=== PATIENT | female | born 1930 | race Caucasian/White ===

== ENCOUNTER 2017-05-27 13:38 | Inpatient (IN) ==
--- NOTE | 2017-05-27 14:56 | Emergency Department Note ---
SOB HPI - General Chief Complaint: Shortness of Breath/Dyspnea Stated Complaint: Shortness of breath Time Seen by Provider: 05/27/17 14:07 Source: patient, family Mode of arrival: wheelchair Limitations: no limitations - History of Present Illness 86-year-old female presents with cough 2 weeks. She was seen at [facility] yesterday and diagnosed with a left lower lobe pneumonia. She was treated with doxycycline and when she took it she had diarrhea. Her son states that this is what happens when she takes some antibiotics. She is also very weak. She has not eaten whole food for 2 years. She is on an all liquid diet and drinks boost mostly. She is able to keep down her pills and does not vomit. He states that they did not give her any fluids or do any blood work yesterday. She is not tachypneic. She does not have any chest pain. She has had one episode of diarrhea. She has not had a history of C. difficile. Family would like her to get some fluids and maybe IV antibiotics for a few days. - Related Data Home Medications Medication Instructions Recorded Confirmed Doxycycline Monohydrate [Mondoxyne 100 mg PO BID 05/27/17 05/27/17 Nl] Losartan Potassium [Cozaar] 100 mg PO DAILY 05/27/17 05/27/17 Metoprolol Tartrate [Lopressor] 50 mg PO BID 05/27/17 05/27/17 Montelukast Sodium [Singulair] 10 mg PO DAILY 05/27/17 05/27/17 Omeprazole [PriLOSEC] 20 mg PO DAILY 05/27/17 05/27/17 Oxybutynin Chloride [Ditropan] 5 mg PO BID 05/27/17 05/27/17 Simvastatin [Zocor] 40 mg PO DAILY 05/27/17 05/27/17 Allergies Allergy/AdvReac Type Severity Reaction Status Date / Time Penicillins Allergy Unknown Verified 05/27/17 13:43 anderson Allergy Verified 05/27/17 13:43 Review of Systems All systems ED: reviewed and negative except as stated. Past Medical History - Past Medical History Medical history: Reports: GERD, hyperlipidemia, hypertension. Denies: CHF Psychiatric history: Reports: no psych history [employer] history: Reports: non-contributory Surgical history ED: Reports: non-contributory Family history: Reports: non-contributory - Social History smoking status: Never smoker Physical Exam Limitations: no limitations General appearance: alert, in no apparent distress Head: atraumatic Eye: Present: normal appearance. Absent: conjunctival injection Neck: Present: normal inspection, full ROM Chest: Present: normal inspection, symmetric chest wall rise Respiratory: Present: other (mild decrease in the left lower lobe) Cardiovascular: Present: irregular rhythm, normal heart sounds Abdominal: Present: soft, normal bowel sounds. Absent: tenderness Extremities: Present: normal inspection, full ROM Neurological: Present: alert, oriented X3 Psychiatric: Present: normal affect, normal mood Skin: Present: warm, dry, intact Course Course Narrative: She will be admitted for IV antibiotics. Vital Signs Temperature 98.7 F 05/27/17 13:43 Pulse Rate 97 H 05/27/17 13:43 Respiratory Rate 18 05/27/17 13:43 Blood Pressure 121/80 05/27/17 13:43 Pulse Oximetry (%) 97 05/27/17 13:43 Temperature 98.7 F 05/27/17 17:32 Pulse Rate 86 05/27/17 17:32 Respiratory Rate 18 05/27/17 17:32 Blood Pressure 133/92 05/27/17 17:32 Pulse Oximetry (%) 94 05/27/17 17:32 Shortness of Breath/Dyspnea - Lab Data Lab results reviewed: Yes I reviewed the patient's lab results. Result diagrams: 05/27/17 15:10 05/27/17 15:10 Lab Results 05/27/17 05/27/17 05/27/17 Range/Units 15:10 15:10 15:10 WBC 4.8 (4.5-11.0) K/mcL RBC 2.58 L (4.00-5.20) M/mcL Hgb 8.7 L (12.0-15.0) g/dL Hct 25.0 L (36.0-48.0) % MCV 97.0 (80.0-100.0) fL MCH 33.8 (26.0-34.0) pg MCHC 34.8 (31.0-36.0) g/dL RDW 13.6 (11.5-14.5) % Plt Count 117 L (140-440) K/mcL MPV 8.4 (7.4-10.4) fL Total Counted 100 Seg Neutrophils % 85 H (38-78) % Band Neutrophils % Not Reportable Lymphocytes % 8 L (15-49) % Monocytes % (Manual) 7 (1-12) % Platelet Estimate Decreased (NORMAL) RBC Morphology Normal (NORMAL) VBG Lactic Acid 1.0 (0.5-2.2) mmol/L Sodium 131 L (133-145) mmol/L Potassium 4.6 (3.3-5.1) mmol/L Chloride 96 (96-108) mmol/L Carbon Dioxide 22 (22-30) mmol/L Anion Gap 13.0 (8-16) BUN 32 H (8-23) mg/dl Creatinine 1.5 H (0.6-1.1) mg/dl GFR Calculation 32 Glucose 98 (70-105) mg/dL Calcium 8.4 L (8.6-10.4) mg/dl Total Bilirubin 0.4 (0.0-1.0) mg/dL AST 20 (0-37) U/l ALT 8 (0-40) U/l Alkaline Phosphatase 48 (39-117) U/L Total Protein 6.4 (5.9-8.4) gm/dL Albumin 2.7 L (3.2-5.2) gm/dL Globulin 3.7 (2.2-3.7) gm/dL Albumin/Globulin Ratio 0.7 L (1.0-2.3) Disposition Pt seen by [facility]/PA only: Yes Clinical Impression: Community acquired pneumonia Disposition: Xfer As Inpt ([facility]) Condition: Fair
[2017-05-27] MEDS: 0.9 % SODIUM CHLORIDE 1,000 ML IV SCH ×3 (15:08→20:07)
[2017-05-27 15:33] LABS: Mean Corpuscular HGB Conc 34.8 g/dL (31.0-36.0); Mean Corpuscular Hemoglobin 33.8 pg (26.0-34.0); Platelet Count 117 K/mcL (140-440); RBC 2.58 M/mcL (4.00-5.20); Red Cell Distribution Width 13.6 % (11.5-14.5)
[2017-05-27 15:54] LABS: ALT/SGPT 8 U/l (0-40); Albumin 2.7 gm/dL (3.2-5.2); Albumin/Globulin Ratio 0.7 (1.0-2.3); Alkaline Phosphatase 48 U/L (39-117); Blood Urea Nitrogen 32 mg/dl (8-23)
[2017-05-27 16:08] LABS: Lymphocytes % 8 % (15-49); Monocytes % (Manual) 7 % (1-12); Platelet Estimate DECREASED (NORMAL); RBC Morphology NORMAL (NORMAL); Segmented Neutrophils % 85 % (38-78)
[2017-05-27] MEDS ORDERED: LEVOFLOXACIN 500 MG/100 ML BAG IV ONE (16:52)
--- NOTE | 2017-05-27 18:09 | Internal Med History&Physical ---
Medical - H&P: HPI Patient information: Note initiated : 05/27/17 at 6:09 pm Service Date, if different from initiated Date: [] Patient: Belle Celaya 86 y/o F admitted on 05/27/17 for Shortness of breath. Chief Complaint: Pneumonia, cannot tolerate PO antibiotics History of present illness: Patient is an 86-year-old female with a history of hypertension, chronic kidney disease, presbyesophagus on a liquid diet, gastroesophageal reflux who presents with diarrhea and progressive failure to thrive after starting antibiotics for pneumonia. For the last week or more, several members of the household have been sick with upper respiratory tract infection symptoms. For the last 7-10 days, her son is noted that the patient is had a worsening cough. It's productive of clear sputum. She is coming more fatigued, having less stamina and energy was declining functionally. She does have a history of presbyesophagus, only takes liquid diet (Boost). She denies any coughing or choking or aspiration symptoms prior to the onset of her cough. She presented to [facility] yesterday, diagnosed with left lower lobe pneumonia. She was started on doxycycline, immediately developed loose stools. She has had loose stools to several antibiotics in the past. She does not have a history of C. difficile. Because of the loose stools, just becoming more dehydrated, has been unable to tolerate oral medications for pneumonia. They return to the emergency department at [facility] today. Given her overall frail health, high risk of morbidity, pneumonia severity index of 114, Patient complains of persistent cough, still productive whitish sputum. She's had no fever. She always feels chilled, that is unchanged. She has no chest pain. No chest tightness. She does have some dyspnea on exertion occasionally. She occasionally gets lightheaded and nauseated, though that tends to occur when she takes her medications on an empty stomach without any liquid intake. She occasionally gets dependent lower extremity edema, has no history of congestive heart failure. No history of asthma or COPD, no history coronary disease, no history of cerebrovascular disease, no history of thyroid disease or diabetes. Denies any stroke symptoms. No abdominal pain. She is having loose stools for the last approximately one day after starting a dose of doxycycline. Otherwise no diarrhea earlier in the course of her illness. 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 Hypertension Hypercholesterolemia Gastroesophageal reflux disease Overactive bladder Surgical history: History of cataract surgery Medical - H&P: Meds Home Medications Medication Instructions Recorded Confirmed Type Doxycycline Monohydrate [Mondoxyne 100 mg PO BID 05/27/17 05/27/17 History Nl] Losartan Potassium [Cozaar] 100 mg PO DAILY 05/27/17 05/27/17 History Metoprolol Tartrate [Lopressor] 50 mg PO BID 05/27/17 05/27/17 History Montelukast Sodium [Singulair] 10 mg PO DAILY 05/27/17 05/27/17 History Omeprazole [PriLOSEC] 20 mg PO DAILY 05/27/17 05/27/17 History Oxybutynin Chloride [Ditropan] 5 mg PO BID 05/27/17 05/27/17 History Simvastatin [Zocor] 40 mg PO DAILY 05/27/17 05/27/17 History Allergies Allergy/AdvReac Type Severity Reaction Status Date / Time Penicillins Allergy Unknown Verified 05/27/17 13:43 anderson Allergy Verified 05/27/17 13:43 Medical - H&P: Exam - Constitutional Vitals: Temp Pulse Resp BP Pulse Ox 98.7 F 86 18 133/92 94 05/27/17 17:32 05/27/17 17:32 05/27/17 17:32 05/27/17 17:32 05/27/17 17:32 Exam: General: Frail, elderly, in no acute distress with occasional cough. HEENT: Normocephalic. Some temporal wasting present. Pupils are 4 mm and reactive bilaterally. Sclera are without icterus. No conjunctival injection noted. Oropharynx with moist mucous membranes, no erythema or exudate. Tongue is midline. Face is symmetric. Neck is supple, no thyromegaly appreciated. There is no meningismus. Chest: Coarse left lower lobe to mid lung rales, right lung lerma clear. Respirations are unlabored. Cardiovascular: Regular rate and rhythm, no murmur appreciated. There is no peripheral edema. Carotid pulses are 2+ without bruit. JVP is normal. Abdomen: Soft, nontender, no guarding, no rebound. Bowel sounds are normal and active. There is no hepatosplenomegaly. Lymphatic: No cervical or supraclavicular lymph nodes are noted. Skin: Warm, dry, decreased skin turgor. Musculoskeletal: Full range of motion in the upper and lower extremities. No joint erythema or swelling or tenderness. Strength is 5 minus/5 in the upper and lower extremities with a generalized weakness pattern. There is no cyanosis or clubbing of the digits. Neuro: The patient alert, oriented 3, answering in full and appropriate sentences. Cranial nerves II through XII are intact (visual lerma not tested) . Sensations intact to light touch. Psychiatric: Affect and orientation are normal. The patient displays good insight to her condition. Medical - H&P: Reslt - Labs CBC & Chem 7: 05/27/17 15:10 05/27/17 15:10 Labs: Short CBC 05/27/17 Range/Units 15:10 WBC 4.8 (4.5-11.0) K/mcL Hgb 8.7 L (12.0-15.0) g/dL Hct 25.0 L (36.0-48.0) % Plt Count 117 L (140-440) K/mcL BMP 05/27/17 15:10 Sodium 131 L Potassium 4.6 Chloride 96 Carbon Dioxide 22 BUN 32 H Creatinine 1.5 H Glucose 98 Calcium 8.4 L Liver Function 05/27/17 Range/Units 15:10 Total Bilirubin 0.4 (0.0-1.0) mg/dL AST 20 (0-37) U/l ALT 8 (0-40) U/l Alkaline Phosphatase 48 (39-117) U/L Albumin 2.7 L (3.2-5.2) gm/dL - Impressions Chest x-ray report from [facility]:, left lower lobe infiltrate. Medical - H&P: A/P (1) Left lower lobe pneumonia Current visit: Yes Status: Acute (2) CKD (chronic kidney disease), stage III Current visit: Yes Status: Chronic (3) Hypertension Current visit: Yes Status: Chronic (4) Hypercholesterolemia Current visit: Yes Status: Chronic (5) Anemia Current visit: Yes Status: Chronic - Narrative A/P Narrative: 86-year-old female with underlying comorbidities of chronic kidney disease, hypertension, hypercholesterolemia presents with pneumonia. Pneumonia. Pneumonia severity index 114, recommendation is inpatient therapy and monitoring. Was not able to tolerate outpatient antibiotics due to diarrhea. This is a covered with several oral antibiotics in the past. Has coarse rales. Is maintaining saturations adequately on room air. Is at risk for further morbidity mortality given age and comorbidities. Plan: 1. Inpatient admission, anticipate greater than 2 midnights 2. IV antibiotics with levofloxacin 3. Gentle hydration 4. PT and OT evaluations for mobility and regain her function Chronic kidney disease, stage III. Creatinine 1.5, similar to a past value in our system. Plan: Renal dose medications as needed. Anemia. Hemoglobin 8.7. Patient denies any hematemesis or blood in her stool. She has a history of prior anemia. Differential includes chronic GI blood loss, may also be related to her chronic kidney disease. Plan: Follow hemoglobin, check iron studies. Hypertension. On metoprolol and losartan. Plan: Continue home regimen. Hypercholesterolemia, on simvastatin Plan: Continue Prophylaxis: Subcutaneous Lovenox. CODE STATUS, discussed with the patient as well as her family at bedside: Full code
[2017-05-27] MEDS ORDERED: ACETAMINOPHEN 325 MG TABLET PO PRN (19:29)
[2017-05-27] MEDS ORDERED: ONDANSETRON 4 MG/2 ML VIAL IV PRN (19:29)
[2017-05-27] MEDS: METOPROLOL TARTRATE 50 MG TABLET PO SCH (21:04)
[2017-05-27] MEDS: 0.9 % SODIUM CHLORIDE 10 ML SYRINGE IV SCH (21:04)
[2017-05-27] MEDS: SIMVASTATIN 40 MG TABLET PO SCH (21:04)
[2017-05-27] MEDS: OXYBUTYNIN CHLORIDE 5 MG TABLET PO SCH (21:04)
[2017-05-27] MEDS: traZODone HCL 50 MG TABLET PO PRN (21:06)
[2017-05-28 05:08] LABS: Appearance,Urine HAZY; Bacteria,Urine FEW /hpf (0); Bilirubin,Urine NEG (NEG); Color,Urine YELLOW; Glucose,Urine (UA) NEGATIVE (NEG); Leukocyte Esterase,Urine 25 /uL (NEG); Mucus,Urine FEW /hpf (0); Protein,Urine NEG (NEG); Specific Gravity,Urine 1.014 (1.000-1.035); Urine Blood NEG mg/dL (<0.03); Urine RBC 1 /hpf (0-1); Urine Squamous Epithelial Cell 3 /hpf (0-4); Urine Transitional Epi Cells < 1 /hpf (0-2); Urine WBC 6 /hpf (0-4); Urobilinogen,Urine NEG (NEG)
[2017-05-28] MEDS: 0.9 % SODIUM CHLORIDE 10 ML SYRINGE IV SCH ×3 (05:47→22:23)
[2017-05-28] MEDS: OMEPRAZOLE 20 MG CAPSULE PO SCH (06:57)
[2017-05-28 07:04] LABS: Basophils # (Auto) 0 K/mcL (0.0-0.3); Basophils % (Auto) 0.4 % (0.0-2.0); Eosinophils # (Auto) 0.1 K/mcL (0.0-0.7); Eosinophils % (Auto) 1.7 % (0.0-7.0); Granulocytes % (Auto) 69.4 % (38.0-78.0); Lymphocytes # (Auto) 0.7 K/mcL (1.5-4.8); Mean Cell Volume 100.1 fL (80.0-100.0); Mean Corpuscular HGB Conc 34.6 g/dL (31.0-36.0); Mean Corpuscular Hemoglobin 34.6 pg (26.0-34.0); Monocytes # (Auto) 0.3 K/mcL (0.1-0.9); Monocytes % (Auto) 8.5 % (1.0-12.0); Platelet Count 112 K/mcL (140-440); RBC 2.42 M/mcL (4.00-5.20); Red Cell Distribution Width 13.6 % (11.5-14.5)
[2017-05-28 07:23] LABS: Blood Urea Nitrogen 30 mg/dl (8-23); Iron 17 mcg/dl (37-145); Transferrin % Saturation 10 % (15-50); Unsaturated Iron Binding 148 mcg/dL (112-346)
[2017-05-28 07:37] LABS: Ferritin 126.1 ng/ml (30-400)
[2017-05-28] MEDS: ENOXAPARIN 30 MG/0.3 ML SYRINGE SQ SCH (08:56)
[2017-05-28] MEDS: OXYBUTYNIN CHLORIDE 5 MG TABLET PO SCH ×2 (08:56→22:14)
[2017-05-28] MEDS: MONTELUKAST 10 MG TABLET PO SCH (08:56)
[2017-05-28] MEDS: LOSARTAN 50 MG TABLET PO SCH (08:56)
[2017-05-28] MEDS: METOPROLOL TARTRATE 50 MG TABLET PO SCH ×2 (08:56→22:14)
[2017-05-28] MEDS: 0.9 % SODIUM CHLORIDE 1,000 ML IV SCH (10:31)
--- NOTE | 2017-05-28 16:18 | Internal Med Progress Note ---
Medical - PN: Subj Patient information: Note initiated : 05/28/17 at 4:16 pm Service Date, if different from initiated Date: [] Patient: Belle Celaya 86 y/o F admitted on 05/27/17 for Shortness of Breath/ Pneumonia. 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 For the last week or more, several members of the household have been sick with upper respiratory tract infection symptoms. For the last 7-10 days, her son is noted that the patient is had a worsening cough. It's productive of clear sputum. She is coming more fatigued, having less stamina and energy was declining functionally. She does have a history of presbyesophagus, only takes liquid diet (Boost). She denies any coughing or choking or aspiration symptoms prior to the onset of her cough. She presented to [facility] yesterday, diagnosed with left lower lobe pneumonia. She was started on doxycycline, immediately developed loose stools. She has had loose stools to several antibiotics in the past. She does not have a history of C. difficile. Because of the loose stools, just becoming more dehydrated, has been unable to tolerate oral medications for pneumonia. They return to the emergency department at [facility] today. Given her overall frail health, high risk of morbidity, pneumonia severity index of 114. May 28 Feeling stronger today. Sitting up in the chair, drinking boost. Still with a cough, sputum about the same. Dietary consult in regards to maximizing her nutrition. She only is able to take liquid diets. Feeding tubes of been discussed with her family in the past, and she is declined. Underlying presbyesophagus with cricopharyngeal dysphagia. Bowel movements improved. - Constitutional Vitals: Vital Signs Temp Pulse Resp BP Pulse Ox 99.3 F H 68 16 118/74 96 05/28/17 15:55 05/28/17 07:52 05/28/17 15:55 05/28/17 15:55 05/28/17 15:55 Period Temp Pulse Resp BP Sys/Sparks Pulse Ox Last 24 Hr 98.7 F-99.7 F 68-102 16-24 110-151/60-92 93-99 Intake and Output 05/28/17 05/28/17 05/28/17 05:59 13:59 21:59 Intake Total 90 / 90 1000 / 1000 Output Total 100 / 100 2 / 2 100 / 100 Balance -10 / -10 998 / 998 -100 / -100 Weight 81 lb 3.2 oz Patient Weight 05/29/17 05:59 Weight 81 lb 3.2 oz Intake & Output: Intake & Output 05/28/17 05/28/17 05/28/17 05:59 13:59 21:59 Intake Total 90 / 90 1000 / 1000 Output Total 100 / 100 2 / 2 100 / 100 Balance -10 / -10 998 / 998 -100 / -100 Weight 81 lb 3.2 oz Intake: IV 1000 / 1000 Sodium Chloride 0.9% 1,000 ml @ 1000 / 1000 75 mls/hr IV .[id number] [facility] Rx#: [id number] Oral 90 / 90 Output: Urine Catheter Amount 100 / 100 Void Amount 100 / 100 # of times incontinent of urine 2 / 2 Other: # of times incontinent of 1 1 Bowels General appearance: no acute distress, thin - Respiratory Respiratory exam: Present: rales (left base, improved from 05/27). Absent: accessory muscle use - Cardiovascular Cardiovascular exam: Present: normal rate and rhythm - GI/Abdominal GI/Abdominal exam: Present: soft. Absent: tenderness - Extremities Exam Extremities exam: Absent: pedal edema - Neurological Exam Neurological exam: Present: alert, oriented X3 Additional comments: Generally weak Medical - PN: Obj Da - Labs CBC & Chem 7: 05/28/17 04:50 05/28/17 04:50 Labs: Abnormal Lab Results 05/28/17 05/28/17 05/28/17 04:50 04:50 04:31 WBC 3.4 L RBC 2.42 L Hgb 8.4 L Hct 24.2 L MCV 100.1 H MCH 34.6 H Plt Count 112 L Lymph # (Auto) 0.7 L Seg Neutrophils % Lymphocytes % Sodium 132 L Carbon Dioxide 20 L BUN 30 H Creatinine 1.3 H Glucose 65 L Calcium 8.0 L Iron 17 L TIBC 165 L Transferrin % Sat 10 L Albumin Albumin/Globulin Ratio Ur Leukocyte Esterase 25 A Urine WBC 6 H Urine Bacteria Few A 02/14/18 02/14/18 15:10 15:10 WBC RBC 2.58 L Hgb 8.7 L Hct 25.0 L MCV MCH Plt Count 117 L Lymph # (Auto) Seg Neutrophils % 85 H Lymphocytes % 8 L Sodium 131 L Carbon Dioxide BUN 32 H Creatinine 1.5 H Glucose Calcium 8.4 L Iron TIBC Transferrin % Sat Albumin 2.7 L Albumin/Globulin Ratio 0.7 L Ur Leukocyte Esterase Urine WBC Urine Bacteria Meds: Medications Acetaminophen (Tylenol) 650 mg PO Q6HP PRN PRN Reason: PAIN/FEVER > 101 Enoxaparin Sodium (Lovenox) 30 mg SQ DAILY [facility] Last Admin: 05/28/17 08:56 Dose: 30 mg Levofloxacin (Levaquin) 250 mg in 50 mls @ 50 mls/hr IV Q48H [facility] Sodium Chloride (Sodium Chloride 0.9%) 1,000 mls @ 50 mls/hr IV .Q20H [facility] Losartan Potassium (Cozaar) 100 mg PO DAILY [facility] Last Admin: 05/28/17 08:56 Dose: 100 mg Metoprolol Tartrate (Lopressor) 50 mg PO BID [facility] Last Admin: 05/28/17 08:56 Dose: 50 mg Montelukast Sodium (Singular) 10 mg PO DAILY [facility] Last Admin: 05/28/17 08:56 Dose: 10 mg Omeprazole (Prilosec) 20 mg PO QAMAC [facility] Last Admin: 05/28/17 06:57 Dose: 20 mg Ondansetron HCl (Zofran) 4 mg IV Q6HP PRN PRN Reason: Nausea And Vomiting Oxybutynin Chloride (Ditropan) 5 mg PO BID [facility] Last Admin: 05/28/17 08:56 Dose: 5 mg Simvastatin (Zocor) 40 mg PO HS [facility] Last Admin: 05/27/17 21:04 Dose: 40 mg Sodium Chloride (Saline Flush) 10 ml IV Q8 [facility] Last Admin: 05/28/17 14:09 Dose: Not Given Trazodone HCl (Desyrel) 25 mg PO HSP PRN PRN Reason: Insomnia Last Admin: 05/27/17 21:06 Dose: 25 mg Medical - PN: A/P (1) Left lower lobe pneumonia Status: Acute Current Visit: Yes (2) CKD (chronic kidney disease), stage III Status: Chronic Current Visit: Yes (3) Hypertension Status: Chronic Current Visit: Yes (4) Hypercholesterolemia Status: Chronic Current Visit: Yes (5) Anemia Status: Chronic Current Visit: Yes - Narrative A/P Narrative: 86-year-old female with underlying comorbidities of chronic kidney disease, hypertension, hypercholesterolemia presents with pneumonia. Pneumonia. Pneumonia severity index 114. Did not tolerate outpatient antibiotics. Improving today after IV antibiotics and hydration. Plan: Continue with levofloxacin, continue gentle hydration, though decrease rate to 50 mL/hour. Continue with PT and OT Malnutrition with decreased body mass index, decreased muscle mass. Secondary to limited nutritional intake due to dysphagia. Plan: Dietary consult, increase supplements as available. Chronic kidney disease, stage III. Creatinine 1.5, similar to a past value in our system. Plan: Renal dose medications as needed. Anemia. Hemoglobin 8.7. Patient denies any hematemesis or blood in her stool. She has a history of prior anemia. Has drifted down slightly with hydration. Iron study shows some degree of iron deficiency. We'll defer for outpatient follow-up Plan: Follow hemoglobin Hypertension. On metoprolol and losartan. Plan: Continue home regimen. Hypercholesterolemia, on simvastatin Plan: Continue
[2017-05-28] MEDS: SIMVASTATIN 40 MG TABLET PO SCH (22:14)
[2017-05-28] MEDS: traZODone HCL 50 MG TABLET PO PRN (22:14)
[2017-05-29] MEDS: 0.9 % SODIUM CHLORIDE 1,000 ML IV SCH ×2 (03:45→12:45)
[2017-05-29] MEDS: 0.9 % SODIUM CHLORIDE 10 ML SYRINGE IV SCH ×3 (06:32→21:38)
[2017-05-29 08:02] LABS: Basophils # (Auto) 0 K/mcL (0.0-0.3); Basophils % (Auto) 0.6 % (0.0-2.0); Eosinophils # (Auto) 0.2 K/mcL (0.0-0.7); Eosinophils % (Auto) 5.8 % (0.0-7.0); Granulocytes % (Auto) 61.3 % (38.0-78.0); Lymphocytes # (Auto) 0.8 K/mcL (1.5-4.8); Lymphocytes % (Auto) 23.7 % (15.5-49.0); Mean Cell Volume 98.6 fL (80.0-100.0); Mean Corpuscular HGB Conc 35.3 g/dL (31.0-36.0); Mean Corpuscular Hemoglobin 34.8 pg (26.0-34.0); Monocytes # (Auto) 0.3 K/mcL (0.1-0.9); Monocytes % (Auto) 8.6 % (1.0-12.0); Platelet Count 126 K/mcL (140-440); RBC 2.32 M/mcL (4.00-5.20); Red Cell Distribution Width 13.6 % (11.5-14.5)
[2017-05-29] MEDS: OMEPRAZOLE 20 MG CAPSULE PO SCH (08:25)
[2017-05-29 08:36] LABS: Blood Urea Nitrogen 34 mg/dl (8-23)
[2017-05-29] MEDS: LEVOFLOXACIN 250 MG/50 ML BAG IV SCH (08:48)
[2017-05-29] MEDS: OXYBUTYNIN CHLORIDE 5 MG TABLET PO SCH ×2 (08:49→21:30)
[2017-05-29] MEDS: LOSARTAN 50 MG TABLET PO SCH (08:49)
[2017-05-29] MEDS: ENOXAPARIN 30 MG/0.3 ML SYRINGE SQ SCH (08:50)
[2017-05-29] MEDS: METOPROLOL TARTRATE 50 MG TABLET PO SCH ×2 (08:50→23:16)
[2017-05-29] MEDS: MONTELUKAST 10 MG TABLET PO SCH (08:50)
--- NOTE | 2017-05-29 11:15 | Internal Med Progress Note ---
Medical - PN: Subj Patient information: Note initiated : 05/29/17 at 11:13 am Service Date, if different from initiated Date: [] Patient: Belle Celaya 86 y/o F admitted on 05/27/17 for Shortness of Breath/ Pneumonia. 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 For the last week or more, several members of the household have been sick with upper respiratory tract infection symptoms. For the last 7-10 days, her son is noted that the patient is had a worsening cough. It's productive of clear sputum. She is coming more fatigued, having less stamina and energy was declining functionally. She does have a history of presbyesophagus, only takes liquid diet (Boost). She denies any coughing or choking or aspiration symptoms prior to the onset of her cough. She presented to [facility] yesterday, diagnosed with left lower lobe pneumonia. She was started on doxycycline, immediately developed loose stools. She has had loose stools to several antibiotics in the past. She does not have a history of C. difficile. Because of the loose stools, just becoming more dehydrated, has been unable to tolerate oral medications for pneumonia. They return to the emergency department at [facility] today. Given her overall frail health, high risk of morbidity, pneumonia severity index of 114. May 28 Feeling stronger today. Sitting up in the chair, drinking boost. Still with a cough, sputum about the same. Dietary consult in regards to maximizing her nutrition. She only is able to take liquid diets. Feeding tubes of been discussed with her family in the past, and she is declined. Underlying presbyesophagus with cricopharyngeal dysphagia. Bowel movements improved. May 29 Was up coughing most of the night. No cough now. No chest pain. No sputum production. Not particularly short of breath at rest. If significant coughing , we'll consider trial of Tessalon Perles and/or cough suppressant. - Constitutional Vitals: Vital Signs Temp Pulse Resp BP Pulse Ox 97.0 F 70 18 120/80 94 05/29/17 07:00 05/29/17 07:00 05/29/17 07:00 05/29/17 07:00 05/29/17 04:00 Period Temp Pulse Resp BP Sys/Sparks Pulse Ox Last 24 Hr 97.0 F-99.8 F 57-74 14-28 110-147/63-80 93-96 Intake and Output 05/28/17 05/29/17 05/29/17 21:59 05:59 13:59 Intake Total 480 / 480 1200 / 1200 Output Total 100 / 100 1 / 100 / 100 Balance 380 / 380 1199 / 1199 -100 / -100 Weight 83 lb Intake & Output: Intake & Output 05/28/17 05/29/17 05/29/17 21:59 05:59 13:59 Intake Total 480 / 480 1200 / 1200 Output Total 100 / 100 1 / 100 / 100 Balance 380 / 380 1199 / 1199 -100 / -100 Weight 83 lb Intake: IV 1000 / 1000 Oral 480 / 480 200 / 200 Output: Urine Catheter Amount 100 / 100 Void Amount 100 / 100 # of times incontinent of urine Other: Meal Breakfast Percent of Meal Consumed Refused Stool Size Small Small Stool Color Brown Brown Stool Consistency Soft Soft # Voids 1 # Bowel Movements 1 # of times incontinent of 1 1 Bowels Exam: General: Sitting in bed in no acute distress Chest: Faint crackles at the left base, significantly improved, respirations unlabored Cardiovascular: Regular rate and rhythm, no edema Abdomen: Soft, nontender Neuro: Alert, oriented 3, generally weak but nonfocal. Medical - PN: Obj Da - Labs CBC & Chem 7: 05/29/17 05:10 05/29/17 05:10 Labs: Abnormal Lab Results 05/29/17 05/29/17 05/28/17 05:10 05:10 04:50 WBC 3.5 L RBC 2.32 L Hgb 8.1 L Hct 22.9 L MCV MCH 34.8 H Plt Count 126 L Lymph # (Auto) 0.8 L Seg Neutrophils % Lymphocytes % Sodium 132 L Carbon Dioxide 19 L 20 L BUN 34 H 30 H Creatinine 1.4 H 1.3 H Glucose 65 L Calcium 7.6 L 8.0 L Iron 17 L TIBC 165 L Transferrin % Sat 10 L Albumin Albumin/Globulin Ratio Ur Leukocyte Esterase Urine WBC Urine Bacteria 0205/28/17 05/27/17 04:50 04:31 15:10 WBC 3.4 L RBC 2.42 L Hgb 8.4 L Hct 24.2 L MCV 100.1 H MCH 34.6 H Plt Count 112 L Lymph # (Auto) 0.7 L Seg Neutrophils % Lymphocytes % Sodium 131 L Carbon Dioxide BUN 32 H Creatinine 1.5 H Glucose Calcium 8.4 L Iron TIBC Transferrin % Sat Albumin 2.7 L Albumin/Globulin Ratio 0.7 L Ur Leukocyte Esterase 25 A Urine WBC 6 H Urine Bacteria Few A 05/27/17 15:10 WBC RBC 2.58 L Hgb 8.7 L Hct 25.0 L MCV MCH Plt Count 117 L Lymph # (Auto) Seg Neutrophils % 85 H Lymphocytes % 8 L Sodium Carbon Dioxide BUN Creatinine Glucose Calcium Iron TIBC Transferrin % Sat Albumin Albumin/Globulin Ratio Ur Leukocyte Esterase Urine WBC Urine Bacteria Microbiology 05/28/17 04:31 Urine Culture - Preliminary Urine - Clean Void Mid-Stream Too young-reincubate 05/27/17 16:45 Stool Culture - Preliminary Stool Negative pathogenic bacteria Meds: Medications Acetaminophen (Tylenol) 650 mg PO Q6HP PRN PRN Reason: PAIN/FEVER > 101 Last Admin: 05/29/17 01:49 Dose: 650 mg Enoxaparin Sodium (Lovenox) 30 mg SQ DAILY [facility] Last Admin: 05/29/17 08:50 Dose: 30 mg Levofloxacin (Levaquin) 250 mg in 50 mls @ 50 mls/hr IV Q48H [facility] Last Admin: 05/29/17 08:48 Dose: 50 mls/hr Sodium Chloride (Sodium Chloride 0.9%) 1,000 mls @ 50 mls/hr IV .Q20H [facility] Last Admin: 05/29/17 03:45 Dose: 50 mls/hr Losartan Potassium (Cozaar) 100 mg PO DAILY [facility] Last Admin: 05/29/17 08:49 Dose: 100 mg Metoprolol Tartrate (Lopressor) 50 mg PO BID [facility] Last Admin: 05/29/17 08:50 Dose: 50 mg Montelukast Sodium (Singular) 10 mg PO DAILY [facility] Last Admin: 05/29/17 08:50 Dose: 10 mg Omeprazole (Prilosec) 20 mg PO QAMAC [facility] Last Admin: 05/29/17 08:25 Dose: 20 mg Ondansetron HCl (Zofran) 4 mg IV Q6HP PRN PRN Reason: Nausea And Vomiting Oxybutynin Chloride (Ditropan) 5 mg PO BID [facility] Last Admin: 05/29/17 08:49 Dose: 5 mg Simvastatin (Zocor) 40 mg PO HS [facility] Last Admin: 05/28/17 22:14 Dose: 40 mg Sodium Chloride (Saline Flush) 10 ml IV Q8 [facility] Last Admin: 05/29/17 06:32 Dose: Not Given Trazodone HCl (Desyrel) 25 mg PO HSP PRN PRN Reason: Insomnia Last Admin: 05/28/17 22:14 Dose: 25 mg Medical - PN: A/P - Time Spent With Patient Total time spent is greater than 50% in coordination of care (as documented) at patient's floor/unit and/or counseling patient: 25 - 35 minutes (1) Left lower lobe pneumonia Status: Acute Current Visit: Yes (2) CKD (chronic kidney disease), stage III Status: Chronic Current Visit: Yes (3) Hypertension Status: Chronic Current Visit: Yes (4) Hypercholesterolemia Status: Chronic Current Visit: Yes (5) Anemia Status: Chronic Current Visit: Yes - Narrative A/P Narrative: 86-year-old female with underlying comorbidities of chronic kidney disease, hypertension, hypercholesterolemia presents with pneumonia. Pneumonia. Pneumonia severity index 114. Did not tolerate outpatient antibiotics. Continues to improve with IV antibiotics and hydration. Plan: Continue with levofloxacin, continue gentle hydration at 50 mL/hour (83 lbs body weight). Continue with PT and OT Malnutrition with decreased body mass index, decreased muscle mass. Secondary to limited nutritional intake due to dysphagia. Plan: Dietary consult, increase supplements as available. Chronic kidney disease, stage III. Creatinine 1.5, similar to a past value in our system. Stable. Plan: Renal dose medications as needed. Anemia/mild pancytopenia. Hemoglobin 8.7, drifted to 8.1 with fluids. No evidence of GI blood loss. She has a history of prior anemia. Iron study shows some degree of iron deficiency. We'll defer for outpatient follow-up. Plan: Follow hemoglobin Hypertension. On metoprolol and losartan. Plan: Continue home regimen. Hypercholesterolemia, on simvastatin Plan: Continue
[2017-05-29] MEDS: SIMVASTATIN 40 MG TABLET PO SCH (21:31)
[2017-05-29] MEDS: traZODone HCL 50 MG TABLET PO PRN (21:31)
[2017-05-30] MEDS: 0.9 % SODIUM CHLORIDE 1,000 ML IV SCH ×3 (00:04→19:49)
[2017-05-30] MEDS ORDERED: CODEINE PO PRN (02:53)
[2017-05-30] MEDS ORDERED: GUAIFENESIN PO PRN (02:53)
[2017-05-30] MEDS: guaiFENesin/CODEINE 10 ML UDC PO PRN ×3 (03:10→20:02)
[2017-05-30] MEDS ORDERED: guaiFENesin/CODEINE 10 ML UDC PO ONE (03:12)
[2017-05-30 05:42] LABS: Basophils # (Auto) 0 K/mcL (0.0-0.3); Basophils % (Auto) 0.4 % (0.0-2.0); Eosinophils # (Auto) 0.2 K/mcL (0.0-0.7); Eosinophils % (Auto) 6.6 % (0.0-7.0); Granulocytes % (Auto) 56.5 % (38.0-78.0); Lymphocytes # (Auto) 0.8 K/mcL (1.5-4.8); Lymphocytes % (Auto) 29.7 % (15.5-49.0); Mean Cell Volume 96.9 fL (80.0-100.0); Mean Corpuscular HGB Conc 34.8 g/dL (31.0-36.0); Mean Corpuscular Hemoglobin 33.8 pg (26.0-34.0); Monocytes # (Auto) 0.2 K/mcL (0.1-0.9); Monocytes % (Auto) 6.8 % (1.0-12.0); Platelet Count 105 K/mcL (140-440); RBC 2.39 M/mcL (4.00-5.20); Red Cell Distribution Width 13.7 % (11.5-14.5)
[2017-05-30] MEDS: 0.9 % SODIUM CHLORIDE 10 ML SYRINGE IV SCH ×3 (05:44→20:03)
[2017-05-30 06:08] LABS: Blood Urea Nitrogen 30 mg/dl (8-23)
[2017-05-30] MEDS: OMEPRAZOLE 20 MG CAPSULE PO SCH (07:12)
[2017-05-30] MEDS: MONTELUKAST 10 MG TABLET PO SCH (09:18)
[2017-05-30] MEDS: ENOXAPARIN 30 MG/0.3 ML SYRINGE SQ SCH (09:18)
[2017-05-30] MEDS: OXYBUTYNIN CHLORIDE 5 MG TABLET PO SCH ×2 (09:18→20:03)
[2017-05-30] MEDS: LOSARTAN 50 MG TABLET PO SCH (09:18)
[2017-05-30] MEDS: METOPROLOL TARTRATE 50 MG TABLET PO SCH ×2 (09:18→20:03)
--- NOTE | 2017-05-30 13:29 | Internal Med Progress Note ---
Medical - PN: Subj Patient information: Note initiated : 05/30/17 at 1:26 pm Service Date, if different from initiated Date: [] Patient: Belle Celaya 86 y/o F admitted on 05/27/17 for Shortness of Breath/ Pneumonia. 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 For the last week or more, several members of the household have been sick with upper respiratory tract infection symptoms. For the last 7-10 days, her son is noted that the patient is had a worsening cough. It's productive of clear sputum. She is coming more fatigued, having less stamina and energy was declining functionally. She does have a history of presbyesophagus, only takes liquid diet (Boost). She denies any coughing or choking or aspiration symptoms prior to the onset of her cough. She presented to [facility] yesterday, diagnosed with left lower lobe pneumonia. She was started on doxycycline, immediately developed loose stools. She has had loose stools to several antibiotics in the past. She does not have a history of C. difficile. Because of the loose stools, just becoming more dehydrated, has been unable to tolerate oral medications for pneumonia. They return to the emergency department at [facility] today. Given her overall frail health, high risk of morbidity, pneumonia severity index of 114. May 28 Feeling stronger today. Sitting up in the chair, drinking boost. Still with a cough, sputum about the same. Dietary consult in regards to maximizing her nutrition. She only is able to take liquid diets. Feeding tubes of been discussed with her family in the past, and she is declined. Underlying presbyesophagus with cricopharyngeal dysphagia. Bowel movements improved. May 29 Was up coughing most of the night. No cough now. No chest pain. No sputum production. Not particularly short of breath at rest. If significant coughing , we'll consider trial of Tessalon Perles and/or cough suppressant. May 30 Patient continues to progress, working with physical therapy. Likely will not be strong enough to return home, case management started looking into skilled rehabilitation yesterday. That remains pending. Appetite seems to be picking up, drinking more boost. Had significant coughing last night, received guaifenesin with codeine with significant improvement and rested well after that. Did not seem to over sedate her. Had to have straight catheterization yesterday, subsequently has been emptying her bladder. - Constitutional Vitals: Vital Signs Temp Pulse Resp BP Pulse Ox 98.7 F 64 16 132/68 96 05/30/17 12:00 05/30/17 09:00 05/30/17 12:00 05/30/17 12:00 05/30/17 12:00 Period Temp Pulse Resp BP Sys/Sparks Pulse Ox Last 24 Hr 97.9 F-99.5 F 58-67 16-19 113-132/61-80 96-98 Intake and Output 05/29/17 05/30/17 05/30/17 21:59 05:59 13:59 Intake Total 810 / 810 1150 / 1150 240 / 240 Output Total 550 / 550 2 / 2 Balance 260 / 260 1149 / 1149 238 / 238 Weight 85 lb 8 oz Intake & Output: Intake & Output 05/29/17 05/30/17 05/30/17 21:59 05:59 13:59 Intake Total 810 / 810 1150 / 1150 240 / 240 Output Total 550 / 550 2 / 2 Balance 260 / 260 1149 / 1149 238 / 238 Weight 85 lb 8 oz Intake: IV 1000 / 1000 Sodium Chloride 0.9% 1,000 ml @ 1000 / 1000 50 mls/hr IV .Q20H [facility] Rx#: [id number] Oral 810 / 810 150 / 150 240 / 240 Output: Urine Catheter Amount 550 / 550 Straight 550 / 550 # of times incontinent of urine 2 / 2 Other: Meal Nourishment/Supplement Percent of Meal Consumed 100% Feeding Ability Needs Supervision Stool Size Smear Smear Stool Color Brown # Voids 0 1 Exam: General: Sitting up in chair, looks comfortable Chest: Minimal left basal crackles, significantly improved Cardiovascular: Regular, no edema Abdomen: Soft, nontender with active bowel sounds Neurologic: Patient alert she is oriented to person, place, situation. She is frail and generally weak but without focal deficit. Medical - PN: Obj Da - Labs CBC & Chem 7: 05/30/17 04:16 05/30/17 04:16 Labs: Abnormal Lab Results 05/30/17 05/30/17 05/29/17 04:16 04:16 05:10 WBC 2.8 L RBC 2.39 L Hgb 8.1 L Hct 23.2 L MCV MCH Plt Count 105 L Gran # 1.6 L Lymph # (Auto) 0.8 L Seg Neutrophils % Lymphocytes % Sodium Carbon Dioxide 19 L 19 L BUN 30 H 34 H Creatinine 1.3 H 1.4 H Glucose 116 H Calcium 7.4 L 7.6 L Iron TIBC Transferrin % Sat Albumin Albumin/Globulin Ratio Ur Leukocyte Esterase Urine WBC Urine Bacteria 05/29/17 05/28/17 05/28/17 05:10 04:50 04:50 WBC 3.5 L 3.4 L RBC 2.32 L 2.42 L Hgb 8.1 L 8.4 L Hct 22.9 L 24.2 L MCV 100.1 H MCH 34.8 H 34.6 H Plt Count 126 L 112 L Gran # Lymph # (Auto) 0.8 L 0.7 L Seg Neutrophils % Lymphocytes % Sodium 132 L Carbon Dioxide 20 L BUN 30 H Creatinine 1.3 H Glucose 65 L Calcium 8.0 L Iron 17 L TIBC 165 L Transferrin % Sat 10 L Albumin Albumin/Globulin Ratio Ur Leukocyte Esterase Urine WBC Urine Bacteria 05/28/17 05/27/17 05/27/17 04:31 15:10 15:10 WBC RBC 2.58 L Hgb 8.7 L Hct 25.0 L MCV MCH Plt Count 117 L Gran # Lymph # (Auto) Seg Neutrophils % 85 H Lymphocytes % 8 L Sodium 131 L Carbon Dioxide BUN 32 H Creatinine 1.5 H Glucose Calcium 8.4 L Iron TIBC Transferrin % Sat Albumin 2.7 L Albumin/Globulin Ratio 0.7 L Ur Leukocyte Esterase 25 A Urine WBC 6 H Urine Bacteria Few A Microbiology 05/27/17 16:45 Stool Culture - Final Stool Hemorrhagic E.coli Culture - Final Negative 05/28/17 04:31 Urine Culture - Final Urine - Clean Void Mid-Stream Meds: Medications Acetaminophen (Tylenol) 650 mg PO Q6HP PRN PRN Reason: PAIN/FEVER > 101 Last Admin: 05/29/17 01:49 Dose: 650 mg Enoxaparin Sodium (Lovenox) 30 mg SQ DAILY [facility] Last Admin: 05/30/17 09:18 Dose: 30 mg Guaifenesin/Codeine Phosphate (Robitussin Ac) 5 ml PO Q6HP PRN PRN Reason: Cough Last Admin: 05/30/17 08:07 Dose: 5 ml Levofloxacin (Levaquin) 250 mg in 50 mls @ 50 mls/hr IV Q48H [facility] Last Infusion: 05/29/17 09:50 Dose: Infused Sodium Chloride (Sodium Chloride 0.9%) 1,000 mls @ 50 mls/hr IV .Q20H [facility] Last Admin: 05/30/17 07:12 Dose: Not Given Losartan Potassium (Cozaar) 100 mg PO DAILY [facility] Last Admin: 05/30/17 09:18 Dose: 100 mg Metoprolol Tartrate (Lopressor) 50 mg PO BID [facility] Last Admin: 05/30/17 09:18 Dose: 50 mg Montelukast Sodium (Singular) 10 mg PO DAILY [facility] Last Admin: 05/30/17 09:18 Dose: 10 mg Omeprazole (Prilosec) 20 mg PO QAMAC [facility] Last Admin: 05/30/17 07:12 Dose: 20 mg Ondansetron HCl (Zofran) 4 mg IV Q6HP PRN PRN Reason: Nausea And Vomiting Oxybutynin Chloride (Ditropan) 5 mg PO BID [facility] Last Admin: 05/30/17 09:18 Dose: 5 mg Simvastatin (Zocor) 40 mg PO HS [facility] Last Admin: 05/29/17 21:31 Dose: 40 mg Sodium Chloride (Saline Flush) 10 ml IV Q8 [facility] Last Admin: 05/30/17 05:44 Dose: Not Given Trazodone HCl (Desyrel) 25 mg PO HSP PRN PRN Reason: Insomnia Last Admin: 05/29/17 21:31 Dose: 25 mg Medical - PN: A/P - Time Spent With Patient Total time spent is greater than 50% in coordination of care (as documented) at patient's floor/unit and/or counseling patient: 25 - 35 minutes (1) Left lower lobe pneumonia Status: Acute Current Visit: Yes (2) CKD (chronic kidney disease), stage III Status: Chronic Current Visit: Yes (3) Hypertension Status: Chronic Current Visit: Yes (4) Hypercholesterolemia Status: Chronic Current Visit: Yes (5) Anemia Status: Chronic Current Visit: Yes - Narrative A/P Narrative: 86-year-old female with underlying comorbidities of chronic kidney disease, hypertension, hypercholesterolemia presents with pneumonia. Pneumonia. Pneumonia severity index 114 at admission and did not tolerate outpatient antibiotics. Continues to improve with IV antibiotics and hydration. Plan: Continue with levofloxacin, continue gentle hydration at 50 mL/hour (83 lbs body weight). Continue with PT and OT. Discharge planning. Malnutrition with decreased body mass index, decreased muscle mass. Secondary to limited nutritional intake due to dysphagia. Plan: Dietary consult, increase supplements as available. Chronic kidney disease, stage III. Creatinine 1.5, similar to a past value in our system. Stable. Plan: Renal dose medications as needed. Anemia/mild pancytopenia. Hemoglobin 8.7, drifted to 8.1 with fluids and stable. No evidence of GI blood loss. She has a history of prior anemia. Iron study shows some degree of iron deficiency. We'll defer for outpatient follow-up. Plan: Follow hemoglobin Hypertension. On metoprolol and losartan. Plan: Continue home regimen. Hypercholesterolemia, on simvastatin Plan: Continue
[2017-05-30] MEDS: SIMVASTATIN 40 MG TABLET PO SCH (20:02)
[2017-05-30] MEDS: traZODone HCL 50 MG TABLET PO PRN (20:03)
[2017-05-31] MEDS: 0.9 % SODIUM CHLORIDE 1,000 ML IV SCH ×3 (04:39→22:16)
[2017-05-31] MEDS: 0.9 % SODIUM CHLORIDE 10 ML SYRINGE IV SCH ×4 (04:40→22:21)
[2017-05-31] MEDS: guaiFENesin/CODEINE 10 ML UDC PO PRN ×3 (05:57→22:16)
[2017-05-31 06:07] LABS: Basophils # (Auto) 0 K/mcL (0.0-0.3); Basophils % (Auto) 0.5 % (0.0-2.0); Eosinophils # (Auto) 0.2 K/mcL (0.0-0.7); Eosinophils % (Auto) 6.2 % (0.0-7.0); Granulocytes % (Auto) 47.4 % (38.0-78.0); Lymphocytes % (Auto) 39.7 % (15.5-49.0); Mean Cell Volume 98.9 fL (80.0-100.0); Mean Corpuscular HGB Conc 34.3 g/dL (31.0-36.0); Monocytes # (Auto) 0.2 K/mcL (0.1-0.9); Monocytes % (Auto) 6.2 % (1.0-12.0); Platelet Count 113 K/mcL (140-440); RBC 2.34 M/mcL (4.00-5.20); Red Cell Distribution Width 13.5 % (11.5-14.5)
[2017-05-31 06:25] LABS: Blood Urea Nitrogen 24 mg/dl (8-23)
[2017-05-31] MEDS: OMEPRAZOLE 20 MG CAPSULE PO SCH (07:01)
[2017-05-31] MEDS: ENOXAPARIN 30 MG/0.3 ML SYRINGE SQ SCH (08:35)
[2017-05-31] MEDS: OXYBUTYNIN CHLORIDE 5 MG TABLET PO SCH ×2 (08:35→22:15)
[2017-05-31] MEDS: METOPROLOL TARTRATE 50 MG TABLET PO SCH ×2 (08:35→22:15)
[2017-05-31] MEDS: LEVOFLOXACIN 250 MG/50 ML BAG IV SCH (08:35)
[2017-05-31] MEDS: LOSARTAN 50 MG TABLET PO SCH (08:35)
[2017-05-31] MEDS: MONTELUKAST 10 MG TABLET PO SCH (08:35)
--- NOTE | 2017-05-31 10:41 | Internal Med Progress Note ---
Medical - PN: Subj Patient information: Note initiated : 05/31/17 at 10:36 am Service Date, if different from initiated Date: [] Patient: Belle Celaya 86 y/o F admitted on 05/27/17 for Shortness of Breath/ Pneumonia. 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 For the last week or more, several members of the household have been sick with upper respiratory tract infection symptoms. For the last 7-10 days, her son is noted that the patient is had a worsening cough. It's productive of clear sputum. She is coming more fatigued, having less stamina and energy was declining functionally. She does have a history of presbyesophagus, only takes liquid diet (Boost). She denies any coughing or choking or aspiration symptoms prior to the onset of her cough. She presented to [facility] yesterday, diagnosed with left lower lobe pneumonia. She was started on doxycycline, immediately developed loose stools. She has had loose stools to several antibiotics in the past. She does not have a history of C. difficile. Because of the loose stools, just becoming more dehydrated, has been unable to tolerate oral medications for pneumonia. They return to the emergency department at [facility] today. Given her overall frail health, high risk of morbidity, pneumonia severity index of 114. May 28 Feeling stronger today. Sitting up in the chair, drinking boost. Still with a cough, sputum about the same. Dietary consult in regards to maximizing her nutrition. She only is able to take liquid diets. Feeding tubes of been discussed with her family in the past, and she is declined. Underlying presbyesophagus with cricopharyngeal dysphagia. Bowel movements improved. May 29 Was up coughing most of the night. No cough now. No chest pain. No sputum production. Not particularly short of breath at rest. If significant coughing , we'll consider trial of Tessalon Perles and/or cough suppressant. May 30 Patient continues to progress, working with physical therapy. Likely will not be strong enough to return home, case management started looking into skilled rehabilitation yesterday. That remains pending. Appetite seems to be picking up, drinking more boost. Had significant coughing last night, received guaifenesin with codeine with significant improvement and rested well after that. Did not seem to over sedate her. Had to have straight catheterization yesterday, subsequently has been emptying her bladder. May 31 Continues to slowly improve, weight is increasing. Working with physical therapy. Still has a cough, no sputum production. No chest pain. No nausea vomiting. Tolerating antibiotics, no diarrhea. - Constitutional Vitals: Vital Signs Temp Pulse Resp BP Pulse Ox 98.4 F 57 L 16 137/68 96 05/31/17 06:44 05/31/17 03:14 05/31/17 08:00 05/31/17 06:44 05/31/17 06:44 Period Temp Pulse Resp BP Sys/Sparks Pulse Ox Last 24 Hr 97.4 F-98.7 F 57-75 16-18 120-157/67-84 95-97 Intake and Output 05/30/17 05/31/17 05/31/17 21:59 05:59 13:59 Intake Total 1638 / 1638 50 / 50 20 / 20 Output Total Balance 1637 / 1637 49 / 49 19 / 19 Weight 90 lb Intake & Output: Intake & Output 05/30/17 05/31/17 05/31/17 21:59 05:59 13:59 Intake Total 1638 / 1638 50 / 50 20 / 20 Output Total Balance 1637 / 1637 49 / 49 19 / 19 Weight 90 lb Intake: IV 988 / 988 Sodium Chloride 0.9% 1,000 ml @ 988 / 988 50 mls/hr IV .Q20H [facility] Rx#: [id number] Oral 650 / 650 50 / 50 20 / 20 Output: # of times incontinent of urine Other: # Voids 1 Exam: General: Laying in bed, awake, alert, no distress Chest: No rales in the left base, clear throughout, good aeration, no accessory muscle use Cardio vascular: Regular, no edema Abdomen: Soft, active bowel sounds Neuro: Generally weak, but nonfocal. Medical - PN: Obj Da - Labs CBC & Chem 7: 05/31/17 04:20 05/31/17 04:20 Labs: Abnormal Lab Results 05/31/17 05/31/17 05/30/17 04:20 04:20 04:16 WBC 2.6 L RBC 2.34 L Hgb 7.9 L Hct 23.1 L MCH Plt Count 113 L Gran # 1.2 L Lymph # (Auto) 1.0 L Carbon Dioxide 21 L 19 L BUN 24 H 30 H Creatinine 1.3 H Glucose 116 H Calcium 7.6 L 7.4 L 05/30/17 05/29/17 05/29/17 04:16 05:10 05:10 WBC 2.8 L 3.5 L RBC 2.39 L 2.32 L Hgb 8.1 L 8.1 L Hct 23.2 L 22.9 L MCH 34.8 H Plt Count 105 L 126 L Gran # 1.6 L Lymph # (Auto) 0.8 L 0.8 L Carbon Dioxide 19 L BUN 34 H Creatinine 1.4 H Glucose Calcium 7.6 L Meds: Medications Acetaminophen (Tylenol) 650 mg PO Q6HP PRN PRN Reason: PAIN/FEVER > 101 Last Admin: 05/29/17 01:49 Dose: 650 mg Enoxaparin Sodium (Lovenox) 30 mg SQ DAILY [facility] Last Admin: 05/31/17 08:35 Dose: 30 mg Guaifenesin/Codeine Phosphate (Robitussin Ac) 5 ml PO Q6HP PRN PRN Reason: Cough Last Admin: 05/31/17 05:57 Dose: 5 ml Levofloxacin (Levaquin) 250 mg in 50 mls @ 50 mls/hr IV Q48H [facility] Last Admin: 05/31/17 08:35 Dose: 50 mls/hr Sodium Chloride (Sodium Chloride 0.9%) 1,000 mls @ 50 mls/hr IV .Q20H [facility] Last Admin: 05/31/17 04:39 Dose: Not Given Losartan Potassium (Cozaar) 100 mg PO DAILY [facility] Last Admin: 05/31/17 08:35 Dose: 100 mg Metoprolol Tartrate (Lopressor) 50 mg PO BID [facility] Last Admin: 05/31/17 08:35 Dose: 50 mg Montelukast Sodium (Singular) 10 mg PO DAILY [facility] Last Admin: 05/31/17 08:35 Dose: 10 mg Omeprazole (Prilosec) 20 mg PO QAMAC [facility] Last Admin: 05/31/17 07:01 Dose: 20 mg Ondansetron HCl (Zofran) 4 mg IV Q6HP PRN PRN Reason: Nausea And Vomiting Oxybutynin Chloride (Ditropan) 5 mg PO BID [facility] Last Admin: 05/31/17 08:35 Dose: 5 mg Simvastatin (Zocor) 40 mg PO HS [facility] Last Admin: 05/30/17 20:02 Dose: 40 mg Sodium Chloride (Saline Flush) 10 ml IV Q8 [facility] Last Admin: 05/31/17 04:40 Dose: Not Given Trazodone HCl (Desyrel) 25 mg PO HSP PRN PRN Reason: Insomnia Last Admin: 05/30/17 20:03 Dose: 25 mg Medical - PN: A/P - Time Spent With Patient Total time spent is greater than 50% in coordination of care (as documented) at patient's floor/unit and/or counseling patient: 25 - 35 minutes (1) Left lower lobe pneumonia Status: Acute Current Visit: Yes (2) CKD (chronic kidney disease), stage III Status: Chronic Current Visit: Yes (3) Hypertension Status: Chronic Current Visit: Yes (4) Hypercholesterolemia Status: Chronic Current Visit: Yes (5) Anemia Status: Chronic Current Visit: Yes - Narrative A/P Narrative: 86-year-old female with underlying comorbidities of chronic kidney disease, hypertension, hypercholesterolemia presents with pneumonia. Pneumonia. Pneumonia severity index 114 at admission and did not tolerate outpatient antibiotics (diarrhea). Continues to improve with IV antibiotics and hydration. Plan: Continue with levofloxacin (d#5), continue gentle hydration at 50 mL/hour (83 lbs body weight-->up to 90 lbs). Continue with PT and OT. Discharge planning. Malnutrition with decreased body mass index, decreased muscle mass. Secondary to limited nutritional intake due to dysphagia. Plan: Dietary consult, increase supplements as available. Weight up to 90 lbs. Chronic kidney disease, stage III. Creatinine 1.5, similar to a past value in our system. Stable. BUN continues to improve with gentle fluids Plan: Renal dose medications as needed. Anemia/mild pancytopenia. Hemoglobin 8.7, drifted to 8.1 with fluids and stable. No evidence of GI blood loss. She has a history of prior anemia. Iron study shows some degree of iron deficiency. WBC low/stable, no neutropenia. DDx includes marrow suppression or myelofibrosis or other. Plan: Follow hemoglobin. Will defer for outpatient follow-up. Hypertension. On metoprolol and losartan. Plan: Continue home regimen. Hypercholesterolemia, on simvastatin Plan: Continue Disposition: Likely ready for SNF on Thursday. Will have had short course abx for PNA at that point.
[2017-05-31] MEDS ORDERED: ZOLPIDEM 5 MG TABLET PO PRN (21:00)
[2017-05-31] MEDS: SIMVASTATIN 40 MG TABLET PO SCH (22:15)
[2017-05-31] MEDS: traZODone HCL 50 MG TABLET PO PRN (22:15)
[2017-06-01] MEDS: 0.9 % SODIUM CHLORIDE 10 ML SYRINGE IV SCH (05:55)
[2017-06-01 05:59] LABS: Basophils # (Auto) 0 K/mcL (0.0-0.3); Basophils % (Auto) 0.3 % (0.0-2.0); Eosinophils # (Auto) 0.2 K/mcL (0.0-0.7); Granulocytes % (Auto) 55.9 % (38.0-78.0); Lymphocytes # (Auto) 1.1 K/mcL (1.5-4.8); Lymphocytes % (Auto) 30.7 % (15.5-49.0); Mean Cell Volume 99.5 fL (80.0-100.0); Mean Corpuscular HGB Conc 34.8 g/dL (31.0-36.0); Mean Corpuscular Hemoglobin 34.6 pg (26.0-34.0); Monocytes # (Auto) 0.2 K/mcL (0.1-0.9); Monocytes % (Auto) 7.1 % (1.0-12.0); Platelet Count 109 K/mcL (140-440); RBC 2.33 M/mcL (4.00-5.20); Red Cell Distribution Width 13.7 % (11.5-14.5)
[2017-06-01 06:34] LABS: ALT/SGPT 9 U/l (0-40); Albumin 2.2 gm/dL (3.2-5.2); Albumin/Globulin Ratio 0.8 (1.0-2.3); Alkaline Phosphatase 39 U/L (39-117); Bilirubin,Direct < 0.2 mg/dL (0.0-0.3); Blood Urea Nitrogen 21 mg/dl (8-23); Gamma Glutamyl Transpeptidase 8 U/L (5-36)
[2017-06-01 06:45] LABS: Vitamin B12 1159 pg/ml (232-1245)
[2017-06-01] MEDS ORDERED: MAGNESIUM SULFATE 2 GM/50 ML BAG IV ONE (07:55)
[2017-06-01] MEDS: OXYBUTYNIN CHLORIDE 5 MG TABLET PO SCH (08:19)
[2017-06-01] MEDS: LOSARTAN 50 MG TABLET PO SCH (08:19)
[2017-06-01] MEDS: METOPROLOL TARTRATE 50 MG TABLET PO SCH (08:19)
[2017-06-01] MEDS: MONTELUKAST 10 MG TABLET PO SCH (08:19)
[2017-06-01] MEDS: OMEPRAZOLE 20 MG CAPSULE PO SCH (08:19)
[2017-06-01] MEDS: ENOXAPARIN 30 MG/0.3 ML SYRINGE SQ SCH (09:55)
--- NOTE | 2017-06-01 12:05 | Discharge Summary ---
Medical - DS: Prov Patient information: Note initiated : 06/01/17 at 11:59 am Service Date, if different from initiated Date: [] Patient: Belle Celaya 86 y/o F admitted on 05/27/17 for Shortness of Breath/ Pneumonia. Chief Complaint: [] Date of admission: 05/27/17 17:25 Discharge date: 06/01/17 Primary care physician: Anel Matthews Admitting clinician: Shauna Au Consults: 05/27/17 16:47 Consult to Physician [CONS] Stat Comment: Consulting Provider: Shauna Au Reason For Exam: Physician to Consult 05/29/17 15:13 Consult to Physician [CONS] Routine Comment: Consulting Provider: [facility] Reason For Exam: Physician to Consult Discharging clinician: Felecia Mai Medical - DS: Meds - Discharge Medications Prescriptions: Levofloxacin 250 mg PO DAILY #3 tab Active and Home Medications: Home Medications Doxycycline Monohydrate [Mondoxyne Nl] 100 mg PO BID 05/27/17 [History Confirmed 05/27/17 Last Taken 05/26/17] Losartan Potassium [Cozaar] 100 mg PO DAILY 05/27/17 [History Confirmed Last Taken 05/26/17] Metoprolol Tartrate [Lopressor] 50 mg PO BID 05/27/17 [History Confirmed Last Taken 05/26/17] Montelukast Sodium [Singulair] 10 mg PO DAILY 05/27/17 [History Confirmed Last Taken 05/26/17] Omeprazole [PriLOSEC] 20 mg PO DAILY 05/27/17 [History Confirmed 05/27/17 Last Taken 05/27/17] Oxybutynin Chloride [Ditropan] 5 mg PO BID 05/27/17 [History Confirmed 05/27/17 Last Taken 05/26/17] Simvastatin [Zocor] 40 mg PO DAILY 05/27/17 [History Confirmed 05/27/17 Last Taken 05/26/17] Medical - DS: Hosp Hospital course: Ms Celaya, is a an 86-year-old female with a history of hypertension, chronic kidney disease, 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 For the last 7-10 days, her son is noted that the patient is had a worsening cough. It's productive of clear sputum. She is coming more fatigued, having less stamina and energy was declining functionally. She does have a history of presbyesophagus, only takes liquid diet (Boost). She denies any coughing or choking or aspiration symptoms prior to the onset of her cough. She presented to [facility], diagnosed with left lower lobe pneumonia. She was started on doxycycline, immediately developed loose stools. She has had loose stools to several antibiotics in the past. She does not have a history of C. difficile. Because of the loose stools, just becoming more dehydrated, has been unable to tolerate oral medications for pneumonia. They return to the emergency department at [facility]. Given her overall frail health, high risk of morbidity, pneumonia severity index of 114, she was admitted to the hospital for further management Pneumonia: patient was treated with levofloxacin, patient responded to treatment very well, microbiology was negative. At the time of discharge, patient is saturating well on room air. Still has some cough, but improving lab and overall clinical profile. She will continue antibiotics for 3 more days. The patient has diarrhea with antibiotics, will discharge on probiotics. The rest of the stay in the hospital was unremarkable. The patient has presbyesophagus and only takes liquid diet at home and in the hospital, but is able to swallow pills without any issues. Discharge diagnosis: Pneumonia - Time Spent with Patient Total time spent providing and/or coordinating discharge services: Greater than 30 minutes Medical - DS: Exam - Constitutional Vitals: Vital Signs Temp Pulse Resp BP Pulse Ox 06/01/17 06:59 97.5 F 16 124/71 97 06/01/17 04:00 97.7 F 60 18 152/74 93 05/31/17 23:36 98.1 F 60 18 141/72 95 05/31/17 19:22 99 F 62 17 161/77 97 05/31/17 15:22 97.4 F 14 120/69 95 Intake and Output 05/31/17 06/01/17 06/01/17 21:59 05:59 13:59 Intake Total 1480 / 1480 400 / 400 Output Total 2 / 2 / 1 Balance 1478 / 1478 399 / 399 Intake: IV 1000 / 1000 Sodium Chloride 0.9% 1,000 ml @ 1000 / 1000 50 mls/hr IV .Q20H [facility] Rx#: [id number] Oral 480 / 480 400 / 400 Output: # of times incontinent of urine Other: # Voids 1 1 Weight 92 lb Additional comments: Constitutional; Afebrile, cooperative, alert, not in distress. Eyes- No icterus, , No periorbital swelling Ears- Ext ear normal, hearing normal to conversation. Neck- Midline trachea, supple Respiratory system: Air Entry equal on both sides, bibasilar crackles improves with cough, no wheezing, no rhonchi. CVS- Rate rhythm regular, S1,S2 heard, no gallop, no rub. Abdomen- Soft nontender abdomen, no organomegaly, no tenderness, no guarding or rigidity, WIRE SPLICER- AOOx3, moving all extremities, no gross focal deficit noted. Medical - DS: Data Labs on day of discharge: Labs from last 24 hours 06/01/17 06/01/17 06/01/17 04:26 04:26 04:26 WBC 3.5 L RBC 2.33 L Hgb 8.1 L Hct 23.2 L MCV 99.5 MCH 34.6 H MCHC 34.8 RDW 13.7 Plt Count 109 L MPV 7.8 Gran % 55.9 Lymph % (Auto) 30.7 [place] % (Auto) 7.1 Eos % (Auto) 6.0 Baso % (Auto) 0.3 Gran # 2.0 Lymph # (Auto) 1.1 L [place] # (Auto) 0.2 Eos # (Auto) 0.2 Baso # (Auto) 0 Smear Path Review Pending Sodium Potassium Chloride Carbon Dioxide Anion Gap BUN Creatinine GFR Calculation Glucose Uric Acid Calcium Phosphorus Magnesium Total Bilirubin Direct Bilirubin GGT AST ALT Alkaline Phosphatase Lactate Dehydrogenase Total Protein Albumin Globulin Albumin/Globulin Ratio Triglycerides Vitamin B12 Folate 16.8 06/01/17 04:26 WBC RBC Hgb Hct MCV MCH MCHC RDW Plt Count MPV Gran % Lymph % (Auto) [place] % (Auto) Eos % (Auto) Baso % (Auto) Gran # Lymph # (Auto) [place] # (Auto) Eos # (Auto) Baso # (Auto) Smear Path Review Sodium 135 Potassium 4.7 Chloride 107 Carbon Dioxide 21 L Anion Gap 7.0 L BUN 21 Creatinine 1.1 GFR Calculation 46 Glucose 76 Uric Acid 3.0 Calcium 7.6 L Phosphorus 1.9 L Magnesium 1.7 Total Bilirubin 0.2 Direct Bilirubin < 0.2 GGT 8 AST 22 ALT 9 Alkaline Phosphatase 39 Lactate Dehydrogenase 119 Total Protein 4.9 L Albumin 2.2 L Globulin 2.7 Albumin/Globulin Ratio 0.8 L Triglycerides 86 Vitamin B12 1159 Folate Medical - DS: A/P - Patient/Caregiver Discharge Instructions Activity: as per physical therapy, increase activity as tolerated Diet: Regular Diet (Full liquid diet for nourishment, Can take pills by mouth. ) Additional Instructions: take antibiotics for 3 more days. Take probiotics as prescribed. Patient takes liquid diet for her nourishment, but she is able to take pills by mouth. Physical therapy, occupational therapy, speech therapy evaluation at the nursing facility. go to the emergency room if fever, chest pain, shortness of breath, or any other acute concerning symptom follow-up with the PCP in 1week - Follow up Plan Follow up with: Anel Matthews ARNP [Primary Care Provider] - Disposition: Xfer SNF Prognosis: Fair Rehab Potential: Fair I certify that the patient requires SNF services: Yes Overall status at discharge: patient is progressing back to baseline
== END 2017-06-01 13:22 | DRG 194 ==
LOC: ED 13:38 → MEDSUR 17:25
PROVIDERS: ADMIT Internal Medicine; ATTEND Internal Medicine

== ENCOUNTER 2017-07-13 13:12 | Inpatient (IN) ==
--- NOTE | 2017-07-13 13:46 | Emergency Department Note ---
Weakness HPI - General Chief complaint: Weakness Stated complaint: Cough, Sorethroat, Chills Time Seen by Provider: 07/13/17 13:22 Source: patient Mode of arrival: wheelchair Limitations: no limitations - History of Present Illness HPI Narrative: [id number] presents to the emergency department with a 1.5 week history of cough and family concerns about her health. May she was treated for pneumonia and then admitted for 5 days due to intractable diarrhea. She was then given IV antibiotics and later received an antibiotic for an abscess on her chest. Through this whole process the cough has not gone away and family notes unremitting lower extremity edema. No fevers, chills, or diarrhea currently. No shortness of breath. Doesn't like needles after her first visit where they poked her multiple times to get a vein. Takes Lasix for edema. No hx of CHF. On an all liquid diet due to trouble swallowing Onset (ago): month(s) (Since May.) Duration: constant Location: LLE (Edema), RLE (Edema) Improves with: none - Related Data Home Medications Medication Instructions Recorded Confirmed Losartan Potassium [Cozaar] 100 mg PO DAILY 05/27/17 07/13/17 Metoprolol Tartrate [Lopressor] 50 mg PO BID 05/27/17 07/13/17 Montelukast Sodium [Singulair] 10 mg PO DAILY 05/27/17 07/13/17 Omeprazole [Prilosec] 20 mg PO DAILY 05/27/17 07/13/17 Oxybutynin Chloride [Ditropan] 5 mg PO BID 05/27/17 07/13/17 Simvastatin [Zocor] 40 mg PO DAILY 05/27/17 07/13/17 Benzonatate [Tessalon Perle] 100 mg PO Q8HP PRN 07/13/17 07/13/17 Previous Rx's Medication Instructions Recorded L. Rhamnosus GG/Inulin [Culturelle 1 each PO BID #60 cap.sprink 06/01/17 Capsule] Allergies Allergy/AdvReac Type Severity Reaction Status Date / Time Penicillins Allergy Unknown Unknown Verified 07/13/17 13:16 Review of Systems All systems ED: reviewed and negative except as stated. Past Medical History - Past Medical History Medical history: Reports: GERD, hyperlipidemia, hypertension. Denies: CHF Psychiatric history: Reports: no psych history [employer] history: Reports: non-contributory Surgical history ED: Reports: non-contributory Family history: Reports: no significant family history - Social History smoking status: Never smoker Alcohol use: Reports: None Drug use: Reports: none Physical Exam Limitations: no limitations General appearance: alert, in no apparent distress Head: atraumatic Eye: Present: normal appearance. Absent: conjunctival injection Neck: Present: normal inspection, full ROM Chest: Present: normal inspection, symmetric chest wall rise Respiratory: Present: other (mild decrease in lower lobes, no crackles or wheezes) Cardiovascular: Present: regular rate, normal heart sounds Abdominal: Present: soft, normal bowel sounds. Absent: tenderness Extremities: Present: pedal edema (feet show edema) Neurological: Present: alert, oriented X3 Psychiatric: Present: normal affect, normal mood Skin: Present: warm, dry, intact Course Course Narrative: Elevated white count and lactic acid. She also has an elevated proBNP. We will treat with antibiotics. We will try to admit here. Vital Signs Temperature 98.1 F 07/13/17 13:13 Pulse Rate 68 07/13/17 13:13 Respiratory Rate 18 07/13/17 13:13 Blood Pressure 141/69 07/13/17 13:13 Pulse Oximetry (%) 95 07/13/17 13:13 Temperature 98.1 F 07/13/17 13:13 Pulse Rate 59 L 07/13/17 17:31 Respiratory Rate 17 07/13/17 17:31 Blood Pressure 129/54 07/13/17 17:31 Pulse Oximetry (%) 94 07/13/17 17:31 Weakness - Lab Data Lab results reviewed: Yes I reviewed the patient's lab results. Result diagrams: 07/13/17 13:56 07/13/17 13:56 Lab Results 07/13/17 07/13/17 07/13/17 Range/Units 13:56 13:56 13:56 WBC 12.9 H (4.5-11.0) K/mcL RBC 2.77 L (4.00-5.20) M/mcL Hgb 9.0 L (12.0-15.0) g/dL Hct 26.8 L (36.0-48.0) % MCV 96.6 (80.0-100.0) fL MCH 32.5 (26.0-34.0) pg MCHC 33.6 (31.0-36.0) g/dL RDW 15.1 H (11.5-14.5) % Plt Count 172 (140-440) K/mcL MPV 8.6 (7.4-10.4) fL Total Counted 100 Seg Neutrophils % 89 H (38-78) % Band Neutrophils % 3 (0-10) % Lymphocytes % 6 L (15-49) % Monocytes % (Manual) 2 (1-12) % Platelet Estimate Normal (NORMAL) RBC Morphology Normal (NORMAL) VBG Lactic Acid 2.9 H (0.5-2.2) mmol/L Sodium 138 (133-145) mmol/L Potassium 4.2 (3.3-5.1) mmol/L Chloride 102 (96-108) mmol/L Carbon Dioxide 24 (22-30) mmol/L Anion Gap 12.0 (8-16) BUN 26 H (8-23) mg/dl Creatinine 1.5 H (0.6-1.1) mg/dl GFR Calculation 32 Glucose 123 H (70-105) mg/dL Calcium 8.6 (8.6-10.4) mg/dl Total Bilirubin 0.4 (0.0-1.0) mg/dL AST 19 (0-37) U/l ALT 7 (0-40) U/l Alkaline Phosphatase 49 (39-117) U/L NT-Pro-B Natriuret Pep 52295.0 H (0-450) pg/ml Total Protein 6.4 (5.9-8.4) gm/dL Albumin 2.8 L (3.2-5.2) gm/dL Globulin 3.6 (2.2-3.7) gm/dL Albumin/Globulin Ratio 0.8 L (1.0-2.3) Procalcitonin (<0.10) ng/mL 07/13/17 Range/Units 13:56 WBC (4.5-11.0) K/mcL RBC (4.00-5.20) M/mcL Hgb (12.0-15.0) g/dL Hct (36.0-48.0) % MCV (80.0-100.0) fL MCH (26.0-34.0) pg MCHC (31.0-36.0) g/dL RDW (11.5-14.5) % Plt Count (140-440) K/mcL MPV (7.4-10.4) fL Total Counted Seg Neutrophils % (38-78) % Band Neutrophils % (0-10) % Lymphocytes % (15-49) % Monocytes % (Manual) (1-12) % Platelet Estimate (NORMAL) RBC Morphology (NORMAL) VBG Lactic Acid (0.5-2.2) mmol/L Sodium (133-145) mmol/L Potassium (3.3-5.1) mmol/L Chloride (96-108) mmol/L Carbon Dioxide (22-30) mmol/L Anion Gap (8-16) BUN (8-23) mg/dl Creatinine (0.6-1.1) mg/dl GFR Calculation Glucose (70-105) mg/dL Calcium (8.6-10.4) mg/dl Total Bilirubin (0.0-1.0) mg/dL AST (0-37) U/l ALT (0-40) U/l Alkaline Phosphatase (39-117) U/L NT-Pro-B Natriuret Pep (0-450) pg/ml Total Protein (5.9-8.4) gm/dL Albumin (3.2-5.2) gm/dL Globulin (2.2-3.7) gm/dL Albumin/Globulin Ratio (1.0-2.3) Procalcitonin 1.01 (<0.10) ng/mL - Radiology Data Radiology results reviewed: Yes I reviewed the patient's radiology results. Left lower lobe pneumonia and small effusion Disposition Pt seen by [facility] LAYER/PA only: Yes Clinical Impression: Community acquired pneumonia, Lactic acid acidosis Disposition: Xfer As Inpt ([facility]) Condition: Fair
[2017-07-13 14:31] LABS: Mean Cell Volume 96.6 fL (80.0-100.0); Mean Corpuscular HGB Conc 33.6 g/dL (31.0-36.0); Mean Corpuscular Hemoglobin 32.5 pg (26.0-34.0); Platelet Count 172 K/mcL (140-440); RBC 2.77 M/mcL (4.00-5.20); Red Cell Distribution Width 15.1 % (11.5-14.5)
[2017-07-13 14:47] LABS: ALT/SGPT 7 U/l (0-40); Albumin 2.8 gm/dL (3.2-5.2); Albumin/Globulin Ratio 0.8 (1.0-2.3); Alkaline Phosphatase 49 U/L (39-117); Blood Urea Nitrogen 26 mg/dl (8-23)
[2017-07-13] MEDS ORDERED: cefTRIAXone 1 GM VIAL IV ONE (15:04)
[2017-07-13] MEDS ORDERED: LACTATED RINGERS 1,000 ML IV SCH ×2 (15:15→18:09)
[2017-07-13 15:24] LABS: Band Neutrophils % 3 % (0-10); Lymphocytes % 6 % (15-49); Monocytes % (Manual) 2 % (1-12); Platelet Estimate NORMAL (NORMAL); RBC Morphology NORMAL (NORMAL); Segmented Neutrophils % 89 % (38-78)
--- NOTE | 2017-07-13 15:24 | XRay Report ---
CLINICAL INFORMATION: Cough COMPARISON: 05/26/2017 FINDINGS: Moderate cardiomegaly is unchanged. Mediastinum and pulmonary vessels are normal. Moderate size left lower lobe infiltrate with small left pleural effusion has developed. Mild old compression fracture of the mid/ lower thoracic spine are stable IMPRESSION: Moderate left lower lobe infiltrate and small effusion Interpreted and Authenticated by: Matthew Hazel 07/13/17
--- NOTE | 2017-07-13 16:51 | Internal Med History&Physical ---
Medical - H&P: [facility] Patient information: Note initiated : 07/13/17 at 4:44 pm Service Date, if different from initiated Date: [] Patient: Belle Celaya a 86 y/o F admitted on for Cough, Sorethroat, Chills. Chief Complaint: [general malaise, persistent cough and difficulty swallowing] History of present illness: Ms. Celaya is a 86 year old F, brought in by son for progressive weakness, persistent cough and poor appetite. Patient was three weeks ago discharged from [facility] where she was recovering following admission 05/27 - 06/01/17 for a LLL pneumonia. Patient was doing 'ok', but has had a persistent cough, worse in the last few days. The cough sounds 'wet', but is non-productive. Patient has been also feeling weak, denies fever, but has chills. She has been able to walk with walker, but only within her bed room. During the last few weeks she has only been able to eat/drink liquids, due to pain and difficulty swallowing. She admits difficulty with urination, has had some diarrhea, but not within the last few days. ROS: negative except as stated above. Medical - H&P: PM Medical history: As per old records: Zenker's diverticulum (upper GI study 2015) UTI CAD, S/P stent placement HTN RAD Surgical history: S/P Zenker diverticulum surgery cataract surgery Social history: Lives son and his Functional capacity: uses cane/walker Smoking status: Never smoker Drug use: none Alcohol use: none Medical - H&P: Meds Home Medications Medication Instructions Recorded Confirmed Type RX: Losartan Potassium [Cozaar] 100 mg PO DAILY 05/27/17 07/13/17 History RX: Metoprolol Tartrate [Lopressor] 50 mg PO BID 05/27/17 07/13/17 History RX: Montelukast Sodium [Singulair] 10 mg PO DAILY 05/27/17 07/13/17 History RX: Omeprazole [Prilosec] 20 mg PO DAILY 05/27/17 07/13/17 History RX: Oxybutynin Chloride [Ditropan] 5 mg PO BID 05/27/17 07/13/17 History RX: Simvastatin [Zocor] 40 mg PO DAILY 05/27/17 07/13/17 History L. Rhamnosus GG/Inulin [Culturelle 1 each PO BID #60 cap.sprink 06/01/17 Rx Capsule] Benzonatate [Tessalon Perle] 100 mg PO Q8HP PRN 07/13/17 07/13/17 History Allergies Allergy/AdvReac Type Severity Reaction Status Date / Time Penicillins Allergy Unknown Unknown Verified 07/13/17 13:16 Medical - H&P: Exam - Constitutional Vitals: Temp Pulse Resp BP Pulse Ox 98.1 F 66 27 H 94/68 97 07/13/17 13:13 07/13/17 16:16 07/13/17 16:16 07/13/17 16:16 07/13/17 16:16 General appearance: thin Exam: Frail appearing elder female - Head Head exam: Present: normal inspection - Respiratory Respiratory exam: Present: decreased breath sounds - Cardiovascular Cardiovascular exam: Present: normal rate and rhythm - GI/Abdominal GI/Abdominal exam: Present: normal bowel sounds, soft - Extremities Exam Extremities exam: Present: normal inspection Medical - H&P: Reslt - Labs CBC & Chem 7: 07/13/17 13:56 07/13/17 13:56 Labs: Short CBC 07/13/17 Range/Units 13:56 WBC 12.9 H (4.5-11.0) K/mcL Hgb 9.0 L (12.0-15.0) g/dL Hct 26.8 L (36.0-48.0) % Plt Count 172 (140-440) K/mcL BMP 07/13/17 13:56 Sodium 138 Potassium 4.2 Chloride 102 Carbon Dioxide 24 BUN 26 H Creatinine 1.5 H Glucose 123 H Calcium 8.6 Liver Function 07/13/17 Range/Units 13:56 Total Bilirubin 0.4 (0.0-1.0) mg/dL AST 19 (0-37) U/l ALT 7 (0-40) U/l Alkaline Phosphatase 49 (39-117) U/L Albumin 2.8 L (3.2-5.2) gm/dL - Imaging and Cardiology Chest x-ray Additional comments: LLL infiltrate, worse than on previous study 05/26/2017 Medical - H&P: A/P - Narrative A/P Narrative: 86-year-old female presented with the following problems: - Recurrent LLL pneumonia, infiltrate larger than on previous study 05/26/2017 DD aspiration pneumonia. C/O dysphagia. Previous barium swallow in 2016 showed prominent Zenker's diverticulum and presbyesophagus [facility] Rx: Ceftriaxone and Ertapenem - Zenker's diverticulum and Presbyesophagus (dysmotility) Will start Protonix IV - Failure to thrive with BMI < 20 - HTN Hold Losartan due to kidney failure Hold lopressor due to HR 60's Watch BP closely - Acute on chronic renal failure Gentle IV hydration - Anemia will check Fe level - HL Continue home meds Prognosis: guarded DVT prophylaxis: heparin Code status: Full code as d/w son and patient -
[2017-07-13] MEDS ORDERED: ACETAMINOPHEN 325 MG TABLET PO PRN (18:09)
[2017-07-13] MEDS ORDERED: ONDANSETRON 4 MG/2 ML VIAL IV PRN (18:09)
[2017-07-13] MEDS ORDERED: IPRATROPIUM/ALBUTEROL 3 ML AMPUL.NEB NEB ONE (19:14)
[2017-07-13] MEDS: IPRATROPIUM/ALBUTEROL 3 ML AMPUL.NEB NEB SCH (19:20)
[2017-07-13] MEDS: ERTAPENEM 0.5 GM in 0.9 % SODIUM CHLORIDE 50 ML IV SCH (20:12)
[2017-07-13] MEDS: PANTOPRAZOLE 40 MG VIAL IV SCH (21:37)
[2017-07-13] MEDS: HEPARIN 5,000 UNIT/ML VIAL SQ SCH (21:37)
[2017-07-13] MEDS: 0.9 % SODIUM CHLORIDE 10 ML SYRINGE IV SCH (21:58)
[2017-07-14] MEDS: IPRATROPIUM/ALBUTEROL 3 ML AMPUL.NEB NEB SCH ×4 (01:05→19:04)
[2017-07-14] MEDS: PANTOPRAZOLE 40 MG VIAL IV SCH (07:14)
[2017-07-14] MEDS: 0.9 % SODIUM CHLORIDE 10 ML SYRINGE IV SCH ×4 (07:15→20:55)
[2017-07-14 08:07] LABS: Blood Urea Nitrogen 24 mg/dl (8-23); Iron 14 mcg/dl (37-145); Transferrin % Saturation 9 % (15-50); Unsaturated Iron Binding 136 mcg/dL (112-346)
[2017-07-14] MEDS ORDERED: SIMVASTATIN 40 MG TABLET PO SCH (09:00)
[2017-07-14] MEDS: cefTRIAXone 1 GM VIAL IV SCH (09:35)
[2017-07-14] MEDS: HEPARIN 5,000 UNIT/ML VIAL SQ SCH ×2 (09:36→20:47)
[2017-07-14] MEDS: ERTAPENEM 0.5 GM in 0.9 % SODIUM CHLORIDE 50 ML IV SCH (14:03)
[2017-07-14] MEDS ORDERED: cefTRIAXone 1 GM in DEXTROSE 5% IN WATER 50 ML IV SCH (16:30)
[2017-07-14] MEDS: METOPROLOL TARTRATE 50 MG TABLET PO SCH ×2 (17:12→20:47)
[2017-07-14] MEDS ORDERED: BISACODYL 10 MG SUPP.RECT PR PRN (21:00)
--- NOTE | 2017-07-15 00:19 | Internal Med Progress Note ---
Medical - PN: Subj Patient information: Note initiated : 07/15/17 at 12:09 am Service Date, if different from initiated Date: [07/14/2017 at 10:00] Patient: Belle Celaya a 86 y/o F admitted on 07/13/17 for Cough, Sorethroat, Chills/Pneumonia. Interval history: History of present illness: Ms. Celaya is a 86 year old F, brought in by son for progressive weakness, persistent cough and poor appetite. Patient was three weeks ago discharged from [facility] where she was recovering following admission 05/27 - 06/01/17 for a LLL pneumonia. Patient was doing 'ok', but has had a persistent cough, worse in the last few days. The cough sounds 'wet', but is non-productive. Patient has been also feeling weak, denies fever, but has chills. She has been able to walk with walker, but only within her bed room. During the last few weeks she has only been able to eat/drink liquids, due to pain and difficulty swallowing. She admits difficulty with urination, has had some diarrhea, but not within the last few days. 07/13: Admitted with - Recurrent LLL pneumonia, infiltrate larger than on previous study 05/26/2017 DD aspiration pneumonia. C/O dysphagia. Previous barium swallow in 2016 showed prominent Zenker's diverticulum and presbyesophagus [facility] Rx: Ceftriaxone and Ertapenem - Zenker's diverticulum and Presbyesophagus (dysmotility) Will start Protonix IV - Failure to thrive with BMI < 20 - HTN Hold Losartan due to kidney failure Hold lopressor due to HR 60's Watch BP closely - Acute on chronic renal failure Gentle IV hydration - Anemia will check Fe level 07/14: Weak, only eat/drinks boost and chicken broth Son and his that patient goes to (temporarily) to SNF after discharge Explained that patient is slowly declining/getting weaker due to esophageal problem, dysphagia and likely aspiration. BP elevated, will add amlodipine - Constitutional Vitals: Vital Signs Temp Pulse Resp BP Pulse Ox 98.4 F 76 22 170/69 95 07/15/17 00:00 07/15/17 00:00 07/15/17 00:00 07/15/17 00:00 07/15/17 00:00 Period Temp Pulse Resp BP Sys/Sparks Pulse Ox Last 24 Hr 97.9 F-99.8 F 70-115 16-24 133-170/69-81 95-97 Intake and Output 07/14/17 07/14/17 07/15/17 13:59 21:59 05:59 Intake Total 390 / 390 Output Total Balance 389 / 389 -4 / -4 Weight 90 lb 88 lb Patient Weight 07/15/17 05:59 Weight 88 lb Intake & Output: Intake & Output 07/14/17 07/14/17 07/15/17 13:59 21:59 05:59 Intake Total 390 / 390 Output Total Balance 389 / 389 -4 / -4 Weight 90 lb 88 lb Intake: Oral 390 / 390 Output: # of times incontinent of urine Other: Meal Nourishment/Supplement Percent of Meal Consumed 75% Feeding Ability Independent # Bowel Movements 1 # of times incontinent of 1 Bowels General appearance: thin - Respiratory Respiratory exam: Present: decreased breath sounds - Cardiovascular Cardiovascular exam: Present: normal rate and rhythm - GI/Abdominal GI/Abdominal exam: Present: normal bowel sounds - Extremities Exam Extremities exam: Present: normal inspection Medical - PN: Obj Da - Labs CBC & Chem 7: 07/13/17 13:56 07/14/17 06:40 Labs: Abnormal Lab Results 07/14/17 07/13/17 07/13/17 06:40 13:56 13:56 WBC RBC Hgb Hct RDW Seg Neutrophils % Lymphocytes % VBG Lactic Acid 2.9 H Carbon Dioxide 21 L BUN 24 H 26 H Creatinine 1.2 H 1.5 H Glucose 123 H Calcium 8.0 L Iron 14 L TIBC 150 L Transferrin % Sat 9 L NT-Pro-B Natriuret Pep 78700.0 H Albumin 2.8 L Albumin/Globulin Ratio 0.8 L 07/13/17 13:56 WBC 12.9 H RBC 2.77 L Hgb 9.0 L Hct 26.8 L RDW 15.1 H Seg Neutrophils % 89 H Lymphocytes % 6 L VBG Lactic Acid Carbon Dioxide BUN Creatinine Glucose Calcium Iron TIBC Transferrin % Sat NT-Pro-B Natriuret Pep Albumin Albumin/Globulin Ratio Meds: Medications Acetaminophen (Tylenol) 650 mg PO Q6HP PRN PRN Reason: PAIN/FEVER > 101 Albuterol/Ipratropium (Duoneb) 3 ml NEB Q6HRT [facility] Last Admin: 07/14/17 19:04 Dose: 3 ml Bisacodyl (Dulcolax) 10 mg LA HSP PRN PRN Reason: Constipation Last Admin: 07/14/17 15:58 Dose: 10 mg Ceftriaxone Sodium (Rocephin) 1 gm IV Q24H [facility] Last Admin: 07/14/17 09:35 Dose: 1 gm Heparin Sodium (Porcine) (Heparin) 5,000 unit SQ Q12 [facility] Last Admin: 07/14/17 20:47 Dose: 5,000 unit Ertapenem 0.5 gm/ Sodium (Chloride) 50 mls @ 100 mls/hr IV Q24H [facility] Last Admin: 07/14/17 14:03 Dose: 100 mls/hr Losartan Potassium (Cozaar) 100 mg PO DAILY [facility] Metoprolol Tartrate (Lopressor) 50 mg PO BID [facility] Last Admin: 07/14/17 20:47 Dose: 50 mg Ondansetron HCl (Zofran) 4 mg IV Q6HP PRN PRN Reason: Nausea And Vomiting Pantoprazole Sodium (Protonix) 40 mg IV QAMAC [facility] Last Admin: 07/14/17 07:14 Dose: 40 mg Simvastatin (Zocor) 40 mg PO DAILY [facility] Last Admin: 07/14/17 09:36 Dose: 40 mg Sodium Chloride (Saline Flush) 10 ml IV Q8 [facility] Last Admin: 07/14/17 20:55 Dose: 10 ml Medical - PN: A/P - Time Spent With Patient Total time spent is greater than 50% in coordination of care (as documented) at patient's floor/unit and/or counseling patient: - Narrative A/P Narrative: 86-year-old female presented with the following problems: - Recurrent LLL pneumonia, infiltrate larger than on previous study 05/26/2017 DD aspiration pneumonia. C/O dysphagia. Previous barium swallow in 2016 showed prominent Zenker's diverticulum and presbyesophagus [facility] Rx: Ceftriaxone and Ertapenem (07/13) - Zenker's diverticulum and Presbyesophagus (dysmotility). Dysphagia (only drinks boost and broth) Will start Protonix IV - Failure to thrive with BMI < 20. D/w son: slow decline in overall condition - HTN Home meds 07/14: amlodipine added Watch BP closely - Acute on chronic renal failure Gentle IV hydration - Anemia will check Fe level: 14 - HL Continue home meds Prognosis: guarded DVT prophylaxis: heparin Code status: Full code as d/w son and patient Medical - PN: Qual - Stroke Symptom Onset Unknown: No - VTE Deep Vein Thrombosis/Pulmonary Embolism Present on Admission: No
[2017-07-15] MEDS: IPRATROPIUM/ALBUTEROL 3 ML AMPUL.NEB NEB SCH ×2 (01:35→11:56)
[2017-07-15 06:01] LABS: Basophils # (Auto) 0 K/mcL (0.0-0.3); Basophils % (Auto) 0.4 % (0.0-2.0); Eosinophils # (Auto) 0.2 K/mcL (0.0-0.7); Eosinophils % (Auto) 5.8 % (0.0-7.0); Granulocytes % (Auto) 63.2 % (38.0-78.0); Lymphocytes # (Auto) 0.8 K/mcL (1.5-4.8); Mean Cell Volume 100.6 fL (80.0-100.0); Mean Corpuscular HGB Conc 34.5 g/dL (31.0-36.0); Mean Corpuscular Hemoglobin 34.7 pg (26.0-34.0); Monocytes # (Auto) 0.2 K/mcL (0.1-0.9); Monocytes % (Auto) 6.6 % (1.0-12.0); Platelet Count 129 K/mcL (140-440); RBC 2.11 M/mcL (4.00-5.20); Red Cell Distribution Width 15.1 % (11.5-14.5)
[2017-07-15 06:54] LABS: ALT/SGPT 5 U/l (0-40); Albumin 2.4 gm/dL (3.2-5.2); Albumin/Globulin Ratio 0.8 (1.0-2.3); Alkaline Phosphatase 44 U/L (39-117); Bilirubin,Direct < 0.2 mg/dL (0.0-0.3); Blood Urea Nitrogen 22 mg/dl (8-23); Gamma Glutamyl Transpeptidase 7 U/L (5-36); Uric Acid 5.2 mg/dL (2.5-8.0)
[2017-07-15] MEDS: PANTOPRAZOLE 40 MG VIAL IV SCH (07:11)
[2017-07-15] MEDS: 0.9 % SODIUM CHLORIDE 10 ML SYRINGE IV SCH ×4 (07:11→21:00)
[2017-07-15] MEDS ORDERED: IPRATROPIUM/ALBUTEROL 3 ML AMPUL.NEB NEB PRN (07:54)
[2017-07-15] MEDS ORDERED: LOSARTAN 50 MG TABLET PO SCH (09:00)
[2017-07-15] MEDS: amLODIPine 10 MG TABLET PO SCH (09:04)
[2017-07-15] MEDS: HEPARIN 5,000 UNIT/ML VIAL SQ SCH (09:04)
[2017-07-15] MEDS: ATORVASTATIN 20 MG TABLET PO SCH (09:04)
[2017-07-15] MEDS: METOPROLOL TARTRATE 50 MG TABLET PO SCH ×2 (09:04→20:55)
[2017-07-15] MEDS: ERTAPENEM 0.5 GM in 0.9 % SODIUM CHLORIDE 50 ML IV SCH (09:09)
[2017-07-15] MEDS: cefTRIAXone 1 GM VIAL IV SCH (09:09)
[2017-07-15] MEDS: POTASSIUM CHLORIDE 20 MEQ TABLET PO SCH ×2 (09:10→17:41)
[2017-07-15] MEDS ORDERED: SODIUM CHLORIDE 0.9% IV ONE (12:17)
[2017-07-15] MEDS ORDERED: IRON DEXTRAN IV ONE (12:17)
[2017-07-15] MEDS ORDERED: IRON SUCROSE COMPLEX 100 MG/5 ML VIAL IV ONE (12:30)
--- NOTE | 2017-07-15 15:52 | Internal Med Progress Note ---
Medical - PN: Subj Patient information: Note initiated : 07/15/17 at 3:19 pm Service Date, if different from initiated Date: [] Patient: Belle Celaya a 86 y/o F admitted on 07/13/17 for Cough, Sorethroat, Chills/Pneumonia. Interval history: History of present illness: Ms. Celaya is a 86 year old F, brought in by son for progressive weakness, persistent cough and poor appetite. Patient was three weeks ago discharged from [facility] where she was recovering following admission 05/27 - 06/01/17 for a LLL pneumonia. Patient was doing 'ok', but has had a persistent cough, worse in the last few days. The cough sounds 'wet', but is non-productive. Patient has been also feeling weak, denies fever, but has chills. She has been able to walk with walker, but only within her bed room. During the last few weeks she has only been able to eat/drink liquids, due to pain and difficulty swallowing. She admits difficulty with urination, has had some diarrhea, but not within the last few days. 07/13: Admitted with - Recurrent LLL pneumonia, infiltrate larger than on previous study 05/26/2017 DD aspiration pneumonia. C/O dysphagia. Previous barium swallow in 2016 showed prominent Zenker's diverticulum and presbyesophagus [facility] Rx: Ceftriaxone and Ertapenem - Zenker's diverticulum and Presbyesophagus (dysmotility) Will start Protonix IV - Failure to thrive with BMI < 20 - HTN Hold Losartan due to kidney failure Hold lopressor due to HR 60's Watch BP closely - Acute on chronic renal failure Gentle IV hydration - Anemia will check Fe level 4/3: Weak, only eat/drinks boost and chicken broth Son and his that patient goes to (temporarily) to SNF after discharge Explained that patient is slowly declining/getting weaker due to esophageal problem, dysphagia and likely aspiration. BP elevated, will add amlodipine 4/3 Pneumonia. DD aspiration pneumonia. On Ertapenam and Ceftriaxone On added amlodipine SBP 108 down from 170's. HR in 60's Drinks only Boost. Total daily karen about 800-900 karen Patient is up and walking with assistance. Feeling weak Hb drop to 7.3 from 9. No evidence of bleeding. Fe level 14 Patient is reluctant to have RBC since she needs to have another blood draw and need IV. Agrees with IV iron. Son would like patient to tx to SNF after hospitalization - Constitutional Vitals: Vital Signs Temp Pulse Resp BP Pulse Ox 99.8 F H 63 16 108/65 93 07/15/17 14:50 07/15/17 14:50 07/15/17 14:50 07/15/17 14:50 07/15/17 14:50 Period Temp Pulse Resp BP Sys/Sparks Pulse Ox Last 24 Hr 97.8 F-99.8 F 63-115 16-24 108-173/65-78 93-96 Intake and Output 07/15/17 07/15/17 07/15/17 05:59 13:59 21:59 Intake Total 75 / 75 410 / 410 Output Total 2 / 2 Balance 74 / 74 408 / 408 - Intake & Output: Intake & Output 07/15/17 07/15/17 07/15/17 05:59 13:59 21:59 Intake Total 75 / 75 410 / 410 Output Total 2 Balance 74 / 74 408 / 408 - Intake: IV 50 / 50 INVanz 0.5 GM In Sodium 50 / 50 Chloride 0.9% 50 ml @ 100 mls/ hr IV Q24H [facility] Rx#:[id number] Oral 75 / 75 360 / 360 Output: # of times incontinent of urine 2 Other: # Bowel Movements 1 General appearance: no acute distress, thin Exam: Pale and weak. - Head Head exam: Present: normal inspection - Respiratory Respiratory exam: Present: normal respiratory exam - Cardiovascular Cardiovascular exam: Present: normal rate and rhythm - GI/Abdominal GI/Abdominal exam: Present: normal bowel sounds, soft - Extremities Exam Extremities exam: Present: normal inspection Medical - PN: Obj Da - Labs CBC & Chem 7: 07/15/17 04:55 07/15/17 04:55 Labs: Abnormal Lab Results 07/15/17 07/15/17 07/14/17 04:55 04:55 06:40 WBC 3.4 L RBC 2.11 L Hgb 7.3 L Hct 21.3 L MCV 100.6 H MCH 34.7 H RDW 15.1 H Plt Count 129 L Lymph # (Auto) 0.8 L Seg Neutrophils % Lymphocytes % VBG Lactic Acid Carbon Dioxide 21 L BUN 24 H Creatinine 1.2 H 1.2 H Glucose Calcium 8.2 L 8.0 L Phosphorus 2.4 L Iron 14 L TIBC 150 L Transferrin % Sat 9 L NT-Pro-B Natriuret Pep Total Protein 5.4 L Albumin 2.4 L Albumin/Globulin Ratio 0.8 L 07/13/17 07/13/17 07/13/17 13:56 13:56 13:56 WBC 12.9 H RBC 2.77 L Hgb 9.0 L Hct 26.8 L MCV MCH RDW 15.1 H Plt Count Lymph # (Auto) Seg Neutrophils % 89 H Lymphocytes % 6 L VBG Lactic Acid 2.9 H Carbon Dioxide BUN 26 H Creatinine 1.5 H Glucose 123 H Calcium Phosphorus Iron TIBC Transferrin % Sat NT-Pro-B Natriuret Pep 18570.0 H Total Protein Albumin 2.8 L Albumin/Globulin Ratio 0.8 L Meds: Medications Acetaminophen (Tylenol) 650 mg PO Q6HP PRN PRN Reason: PAIN/FEVER > 101 Albuterol/Ipratropium (Duoneb) 3 ml NEB Q6HP PRN PRN Reason: Shortness Of Breath Or Wheezing Amlodipine Besylate (Norvasc) 10 mg PO DAILY [facility] Last Admin: 07/15/17 09:04 Dose: 10 mg Atorvastatin Calcium (Lipitor) 20 mg PO DAILY [facility] Last Admin: 07/15/17 09:04 Dose: 20 mg Bisacodyl (Dulcolax) 10 mg OR HSP PRN PRN Reason: Constipation Last Admin: 07/14/17 15:58 Dose: 10 mg Ceftriaxone Sodium (Rocephin) 1 gm IV Q24H [facility] Last Admin: 07/15/17 09:09 Dose: 1 gm Heparin Sodium (Porcine) (Heparin) 5,000 unit SQ Q12 [facility] Last Admin: 07/15/17 09:04 Dose: 5,000 unit Ertapenem 0.5 gm/ Sodium (Chloride) 50 mls @ 100 mls/hr IV Q24H [facility] Last Infusion: 07/15/17 09:40 Dose: Infused Losartan Potassium (Cozaar) 100 mg PO DAILY [facility] Last Admin: 07/15/17 09:05 Dose: 100 mg Metoprolol Tartrate (Lopressor) 50 mg PO BID [facility] Last Admin: 07/15/17 09:04 Dose: 50 mg Ondansetron HCl (Zofran) 4 mg IV Q6HP PRN PRN Reason: Nausea And Vomiting Pantoprazole Sodium (Protonix) 40 mg IV QAMAC [facility] Last Admin: 07/15/17 07:11 Dose: 40 mg Potassium Chloride (Kdur) 20 meq PO BIDCC [facility] Last Admin: 07/15/17 09:10 Dose: 20 meq Sodium Chloride (Saline Flush) 10 ml IV Q8 [facility] Last Admin: 07/15/17 14:32 Dose: 10 ml Medical - PN: A/P - Time Spent With Patient Total time spent is greater than 50% in coordination of care (as documented) at patient's floor/unit and/or counseling patient: - Narrative A/P Narrative: 86-year-old female presented with the following problems: - Recurrent LLL pneumonia, infiltrate larger than on previous study 05/26/2017 DD aspiration pneumonia. C/O dysphagia. Previous barium swallow in 2016 showed prominent Zenker's diverticulum and presbyesophagus [facility] Rx: Ceftriaxone and Ertapenem (07/13) - Zenker's diverticulum and Presbyesophagus (dysmotility). Dysphagia (only drinks boost and broth) Will start Protonix IV For barium swallow with speech /4 - Failure to thrive with BMI < 20. D/w son: slow decline in overall condition - HTN Home meds Watch BP closely - Acute on chronic renal failure Gentle IV hydration done. - Anemia will check Fe level: 14 Iron IV x 1 given. - HL Continue home meds Prognosis: guarded DVT prophylaxis: scd Code status: Full code as d/w son and patient Medical - PN: Qual - Stroke Symptom Onset Unknown: No - VTE Deep Vein Thrombosis/Pulmonary Embolism Present on Admission: No
[2017-07-15] MEDS ORDERED: POTASSIUM CHLORIDE 20 MEQ in DEXTROSE 5% IN WATER 250 ML IV ONE (17:00)
[2017-07-16] MEDS: 0.9 % SODIUM CHLORIDE 10 ML SYRINGE IV SCH ×7 (04:33→21:21)
[2017-07-16 05:35] LABS: Basophils # (Auto) 0 K/mcL (0.0-0.3); Basophils % (Auto) 0.5 % (0.0-2.0); Eosinophils # (Auto) 0.4 K/mcL (0.0-0.7); Eosinophils % (Auto) 9.3 % (0.0-7.0); Lymphocytes % (Auto) 24.2 % (15.5-49.0); Mean Cell Volume 99.3 fL (80.0-100.0); Mean Corpuscular HGB Conc 34.6 g/dL (31.0-36.0); Mean Corpuscular Hemoglobin 34.3 pg (26.0-34.0); Monocytes # (Auto) 0.2 K/mcL (0.1-0.9); Platelet Count 159 K/mcL (140-440); RBC 2.35 M/mcL (4.00-5.20); Red Cell Distribution Width 15.1 % (11.5-14.5)
[2017-07-16 05:58] LABS: ALT/SGPT 6 U/l (0-40); Albumin 2.2 gm/dL (3.2-5.2); Albumin/Globulin Ratio 0.7 (1.0-2.3); Alkaline Phosphatase 44 U/L (39-117); Bilirubin,Direct < 0.2 mg/dL (0.0-0.3); Blood Urea Nitrogen 19 mg/dl (8-23); Gamma Glutamyl Transpeptidase 7 U/L (5-36); Uric Acid 4.4 mg/dL (2.5-8.0)
[2017-07-16] MEDS: PANTOPRAZOLE 40 MG VIAL IV SCH (06:57)
[2017-07-16] MEDS: POTASSIUM CHLORIDE 20 MEQ TABLET PO SCH (09:32)
[2017-07-16] MEDS: amLODIPine 10 MG TABLET PO SCH (09:33)
[2017-07-16] MEDS: cefTRIAXone 1 GM VIAL IV SCH (09:33)
[2017-07-16] MEDS: LOSARTAN 50 MG TABLET PO SCH (09:33)
[2017-07-16] MEDS: METOPROLOL TARTRATE 50 MG TABLET PO SCH ×2 (09:33→21:20)
[2017-07-16] MEDS: ATORVASTATIN 20 MG TABLET PO SCH (09:33)
[2017-07-16] MEDS ORDERED: MAGNESIUM SULFATE 2 GM/50 ML BAG IV ONE (09:43)
[2017-07-16] MEDS ORDERED: POTASSIUM PHOSPHATE 40 MEQ in DEXTROSE 5% IN WATER 500 ML IV ONE (10:00)
[2017-07-16] MEDS: ERTAPENEM 0.5 GM in 0.9 % SODIUM CHLORIDE 50 ML IV SCH (10:02)
--- NOTE | 2017-07-16 11:53 | Internal Med Progress Note ---
Medical - PN: Subj Patient information: Note initiated : 07/16/17 at 11:50 am Service Date, if different from initiated Date: [] Patient: Belle Celaya a 86 y/o F admitted on 07/13/17 for Cough, Sorethroat, Chills/Pneumonia. Chief Complaint: [] Interval history: History of present illness: Ms. Celaya is a 86 year old F, brought in by son for progressive weakness, persistent cough and poor appetite. Patient was three weeks ago discharged from [facility] where she was recovering following admission 05/27 - 06/01/17 for a LLL pneumonia. Patient was doing 'ok', but has had a persistent cough, worse in the last few days. The cough sounds 'wet', but is non-productive. Patient has been also feeling weak, denies fever, but has chills. She has been able to walk with walker, but only within her bed room. During the last few weeks she has only been able to eat/drink liquids, due to pain and difficulty swallowing. She admits difficulty with urination, has had some diarrhea, but not within the last few days. 07/13: Admitted with - Recurrent LLL pneumonia, infiltrate larger than on previous study 05/26/2017 DD aspiration pneumonia. C/O dysphagia. Previous barium swallow in 2016 showed prominent Zenker's diverticulum and presbyesophagus Empiric Rx: Ceftriaxone and Ertapenem - Zenker's diverticulum and Presbyesophagus (dysmotility) Will start Protonix IV - Failure to thrive with BMI < 20 - HTN Hold Losartan due to kidney failure Hold lopressor due to HR 60's Watch BP closely - Acute on chronic renal failure Gentle IV hydration - Anemia will check Fe level 4/3: Weak, only eat/drinks boost and chicken broth Son and his that patient goes to (temporarily) to SNF after discharge Explained that patient is slowly declining/getting weaker due to esophageal problem, dysphagia and likely aspiration. BP elevated, will add amlodipine 4/4 Pneumonia. DD aspiration pneumonia. On Ertapenam and Ceftriaxone On added amlodipine SBP 108 down from 170's. HR in 60's Drinks only Boost. Total daily karen about 800-900 karen Patient is up and walking with assistance. Feeling weak Hb drop to 7.3 from 9. No evidence of bleeding. Fe level 14 Patient is reluctant to have RBC since she needs to have another blood draw and need IV. Agrees with IV iron. Son would like patient to tx to SNF after hospitalization 4/5 Patient seen examined, no acute ovenright events, WBC trending down Hb stable had dropped yesterfday but now 8.1, no clear e/o bleeding IV ertapneum for now, d/c rocephin, (dual covernage not needed), pt clincally responding so will continue same appreciate ST eval, will follow reccs as much as possible ( pt does not like thickned fluids) She will need outpatient ENT follow up Pertinent ROS: Denies headache, dizziness Denies chest pain, palpitations Denies cough or shortness of breath Denies abdominal pain, nausea or vomiting. - Constitutional Vitals: Vital Signs Temp Pulse Resp BP Pulse Ox 98.1 F 62 20 155/70 90 07/16/17 07:11 07/16/17 07:11 07/16/17 07:11 07/16/17 07:11 07/16/17 07:11 Period Temp Pulse Resp BP Sys/Sparks Pulse Ox Last 24 Hr 97.6 F-99.8 F 60-90 16-24 108-155/65-75 90-95 Intake and Output 07/15/17 07/16/17 07/16/17 21:59 05:59 13:59 Intake Total 260 / 260 110 / 110 Output Total 2 / 2 1 / 1 2 / 2 Balance -2 / -2 259 / 259 108 / 108 Weight 88 lb Intake & Output: Intake & Output 07/15/17 07/16/17 07/16/17 21:59 05:59 13:59 Intake Total 260 / 260 110 / 110 Output Total 2 / 2 1 / 1 2 / 2 Balance -2 / -2 259 / 259 108 / 108 Weight 88 lb Intake: IV 260 / 260 50 / 50 INVanz 0.5 GM In Sodium 50 / 50 Chloride 0.9% 50 ml @ 100 mls/ hr IV Q24H [facility] Rx#:[id number] Potassium Chloride 20 Meq In 260 / 260 Dextrose 5% in Water 250 ml @ 130 mls/hr IV ONCE ONE Rx#: [id number] Oral 0 / 0 60 / 60 Output: # of times incontinent of urine 2 / 2 1 / 1 2 / 2 Other: Meal Breakfast Percent of Meal Consumed Refused Stool Size Moderate Moderate Stool Color Brown Brown Stool Consistency Loose Loose # of times incontinent of 1 1 1 Bowels Exam: Constitutional; Afebrile, cooperative, alert, not in distress. Eyes- No icterus, , No periorbital swelling Ears- Ext ear normal, Neck- Midline trachea, supple Respiratory system: Air Entry equal on both sides, No crackles or wheezing, no rhonchi. CVS- Rate rhythm regular, S1,S2 heard, no gallop, no rub. Abdomen- Soft nontender abdomen, no organomegaly, no tenderness, no guarding or rigidity, PROVISIONING ANALYST- AOOx3, moving all extremities, no gross focal deficit noted. Medical - PN: Obj Da - Labs CBC & Chem 7: 07/16/17 03:55 07/16/17 03:55 Labs: Abnormal Lab Results 07/16/17 07/16/17 07/15/17 03:55 03:55 04:55 WBC 4.0 L RBC 2.35 L Hgb 8.1 L Hct 23.3 L MCV MCH 34.3 H RDW 15.1 H Plt Count Eos % (Auto) 9.3 H Lymph # (Auto) 1.0 L Seg Neutrophils % Lymphocytes % VBG Lactic Acid Carbon Dioxide BUN Creatinine 1.2 H 1.2 H Glucose Calcium 8.3 L 8.2 L Phosphorus 1.9 L 2.4 L Iron TIBC Transferrin % Sat NT-Pro-B Natriuret Pep Total Protein 5.5 L 5.4 L Albumin 2.2 L 2.4 L Albumin/Globulin Ratio 0.7 L 0.8 L 07/15/17 07/14/17 07/13/17 04:55 06:40 13:56 WBC 3.4 L RBC 2.11 L Hgb 7.3 L Hct 21.3 L MCV 100.6 H MCH 34.7 H RDW 15.1 H Plt Count 129 L Eos % (Auto) Lymph # (Auto) 0.8 L Seg Neutrophils % Lymphocytes % VBG Lactic Acid 2.9 H Carbon Dioxide 21 L BUN 24 H Creatinine 1.2 H Glucose Calcium 8.0 L Phosphorus Iron 14 L TIBC 150 L Transferrin % Sat 9 L NT-Pro-B Natriuret Pep Total Protein Albumin Albumin/Globulin Ratio 07/13/17 07/13/17 13:56 13:56 WBC 12.9 H RBC 2.77 L Hgb 9.0 L Hct 26.8 L MCV MCH RDW 15.1 H Plt Count Eos % (Auto) Lymph # (Auto) Seg Neutrophils % 89 H Lymphocytes % 6 L VBG Lactic Acid Carbon Dioxide BUN 26 H Creatinine 1.5 H Glucose 123 H Calcium Phosphorus Iron TIBC Transferrin % Sat NT-Pro-B Natriuret Pep 76264.0 H Total Protein Albumin 2.8 L Albumin/Globulin Ratio 0.8 L Meds: Medications Acetaminophen (Tylenol) 650 mg PO Q6HP PRN PRN Reason: PAIN/FEVER > 101 Albuterol/Ipratropium (Duoneb) 3 ml NEB Q6HP PRN PRN Reason: Shortness Of Breath Or Wheezing Amlodipine Besylate (Norvasc) 10 mg PO DAILY [facility] Last Admin: 07/16/17 09:33 Dose: 10 mg Atorvastatin Calcium (Lipitor) 20 mg PO DAILY [facility] Last Admin: 07/16/17 09:33 Dose: 20 mg Bisacodyl (Dulcolax) 10 mg OH HSP PRN PRN Reason: Constipation Last Admin: 07/14/17 15:58 Dose: 10 mg Ertapenem 0.5 gm/ Sodium (Chloride) 50 mls @ 100 mls/hr IV Q24H [facility] Last Infusion: 07/16/17 10:35 Dose: Infused Potassium Phosphate 40 meq/ (Dextrose) 509.0909 mls @ 127.273 mls/hr IV ONCE ONE Stop: 07/16/17 13:59 Losartan Potassium (Cozaar) 50 mg PO DAILY [facility] Last Admin: 07/16/17 09:33 Dose: 50 mg Metoprolol Tartrate (Lopressor) 50 mg PO BID [facility] Last Admin: 07/16/17 09:33 Dose: 50 mg Ondansetron HCl (Zofran) 4 mg IV Q6HP PRN PRN Reason: Nausea And Vomiting Pantoprazole Sodium (Protonix) 40 mg IV QAMAC [facility] Last Admin: 07/16/17 06:57 Dose: 40 mg Potassium [facility] ([facility]) [facility] Sodium Chloride (Saline Flush) 10 ml IV Q8 [facility] Last Admin: 07/16/17 09:47 Dose: 10 ml Medical - PN: A/P - Time Spent With Patient Total time spent is greater than 50% in coordination of care (as documented) at patient's floor/unit and/or counseling patient: - Narrative A/P Narrative: 86-year-old female presented with the following problems: - Recurrent LLL pneumonia, infiltrate larger than on previous study 05/26/2017 DD aspiration pneumonia. C/O dysphagia. Previous barium swallow in 2016 showed prominent Zenker's diverticulum and presbyesophagus Emp[facility] Rx: Ertapenem (07/13), d/c rocephin, consider d/c on augmentin. - Zenker's diverticulum and Presbyesophagus (dysmotility). Dysphagia (only drinks boost and broth) Will start Protonix IV barium swallow done outpatient ENT follow up. - Failure to thrive with BMI < 20. D/w son: slow decline in overall condition increase oral intake as much as possible pt declined Feeding tube. - HTN Home meds Watch BP closely - Acute on chronic renal failure, improving renal function. creat is 1.2 Gentle IV hydration done. - Anemia will check Fe level: 14 Iron IV x 1 given. hb improved to 8.1 - HL Continue home meds Prognosis: guarded DVT prophylaxis: scd Code status: Full code as d/w son and patient Medical - PN: Qual - Stroke Symptom Onset Unknown: No - VTE Deep Vein Thrombosis/Pulmonary Embolism Present on Admission: No
[2017-07-17] MEDS: 0.9 % SODIUM CHLORIDE 10 ML SYRINGE IV SCH ×2 (03:42→06:09)
[2017-07-17 06:15] LABS: Basophils # (Auto) 0 K/mcL (0.0-0.3); Basophils % (Auto) 0.6 % (0.0-2.0); Eosinophils # (Auto) 0.4 K/mcL (0.0-0.7); Eosinophils % (Auto) 9.9 % (0.0-7.0); Lymphocytes # (Auto) 1.2 K/mcL (1.5-4.8); Lymphocytes % (Auto) 31.4 % (15.5-49.0); Mean Cell Volume 101.2 fL (80.0-100.0); Mean Corpuscular HGB Conc 34.3 g/dL (31.0-36.0); Mean Corpuscular Hemoglobin 34.7 pg (26.0-34.0); Monocytes # (Auto) 0.2 K/mcL (0.1-0.9); Monocytes % (Auto) 6.1 % (1.0-12.0); Platelet Count 164 K/mcL (140-440); RBC 2.31 M/mcL (4.00-5.20); Red Cell Distribution Width 14.9 % (11.5-14.5)
[2017-07-17 06:35] LABS: ALT/SGPT 6 U/l (0-40); Albumin 2.3 gm/dL (3.2-5.2); Albumin/Globulin Ratio 0.7 (1.0-2.3); Alkaline Phosphatase 45 U/L (39-117); Bilirubin,Direct < 0.2 mg/dL (0.0-0.3); Blood Urea Nitrogen 17 mg/dl (8-23); Gamma Glutamyl Transpeptidase 8 U/L (5-36)
[2017-07-17] MEDS ORDERED: POTASSIUM CHLORIDE 20 MEQ TABLET PO SCH (08:00)
[2017-07-17] MEDS: ERTAPENEM 0.5 GM in 0.9 % SODIUM CHLORIDE 50 ML IV SCH (09:30)
[2017-07-17] MEDS: PANTOPRAZOLE 40 MG VIAL IV SCH (10:49)
[2017-07-17] MEDS: LOSARTAN 50 MG TABLET PO SCH (10:49)
[2017-07-17] MEDS: METOPROLOL TARTRATE 50 MG TABLET PO SCH (10:49)
[2017-07-17] MEDS: amLODIPine 10 MG TABLET PO SCH (10:49)
[2017-07-17] MEDS: ATORVASTATIN 20 MG TABLET PO SCH (11:00)
--- NOTE | 2017-07-17 12:33 | Discharge Summary ---
Medical - DS: Prov Patient information: Note initiated : 07/17/17 at 12:27 pm Service Date, if different from initiated Date: [] Patient: Belle Celaya 86 y/o F admitted on 07/13/17 for Cough, Sorethroat, Chills/Pneumonia. Chief Complaint: [] Date of admission: 07/13/17 17:48 Discharge date: 07/17/17 Primary care physician: Anel Matthews Admitting clinician: Rudolph Pope Consults: 07/16/17 10:17 Consult to Physician [CONS] Routine Comment: SNF referral Consulting Provider: [facility] Reason For Exam: Physician to Consult Discharging clinician: Felecia Mai Medical - DS: Meds - Discharge Medications Prescriptions: Cefdinir 300 mg PO BID #10 cap metroNIDAZOLE [Metronidazole] 500 mg PO TID #15 tab Active and Home Medications: Home Medications Losartan Potassium [Cozaar] 100 mg PO DAILY 05/27/17 [History Confirmed Last Taken 07/12/17 10:00] Metoprolol Tartrate [Lopressor] 50 mg PO BID 05/27/17 [History Confirmed Last Taken 07/12/17 10:00] Montelukast Sodium [Singulair] 10 mg PO DAILY 05/27/17 [History Confirmed Last Taken 07/12/17 10:00] Omeprazole [Prilosec] 20 mg PO DAILY 05/27/17 [History Confirmed 07/13/17 Last Taken 07/12/17 10:00] Oxybutynin Chloride [Ditropan] 5 mg PO BID 05/27/17 [History Confirmed 07/13/17 Last Taken 07/12/17 10:00] Simvastatin [Zocor] 40 mg PO DAILY 05/27/17 [History Confirmed 07/13/17 Last Taken 07/12/17 10:00] L. Rhamnosus GG/Inulin [Culturelle Capsule] 1 each PO BID #60 cap.sprink [Rx Confirmed 07/13/17 Last Taken 07/12/17 10:00] Benzonatate [Tessalon Perle] 100 mg PO Q8HP PRN 07/13/17 [History Confirmed 05/31 Last Taken 07/13/17 00:00] Medical - DS: Hosp Hospital course: ned Celaya is a 86 year old F, brought in by son for progressive weakness, persistent cough and poor appetite. Patient was three weeks ago discharged from [facility] where she was recovering following admission 05/27 - 06/01/17 for a LLL pneumonia. Patient was doing 'ok', but has had a persistent cough, worse in the last few days. The cough sounds 'wet', but is non-productive. Patient has been also feeling weak, denies fever, but has chills. She has been able to walk with walker, but only within her bed room. During the last few weeks she has only been able to eat/drink liquids, due to pain and difficulty swallowing. The patient was admitted to the hospital with Recurrent LLL pneumonia, infiltrate larger than on previous study 05/26/2017, likely aspiration pneumonitis, DD aspiration pneumonia. C/O dysphagia. Previous barium swallow in 2015 showed prominent Zenker's diverticulum and presbyesophagus Microbiology was neg, patient was given Rocephin and ertapenem while in the hospital to which she responded well. She will be discharged on oral cefdinir and flagyl for another 5 days Zenker's diverticulum and Presbyesophagus (dysmotility): This is a chr issue, the patient has not been eating solid foods x 2 yrs, has been progressively loosing weight, Seen by Speech therapy here, advised puree diet with [place] thick liquid, the patient is very hesitant to drinking thickened liquids, educated at length need to stay hydrated to ensure that she is able to keep up with nutrional needs. It seems that it will be difficult to convince the patient to increase oral intake, will try to use [place] water protocol to see if this helps. the Speech therapist was ok with same. Pt will get ENT referral as outpatient. Failure to thrive with BMI < 20: Follow up outpatient with PCP/ ENT/ Dietitian, largely seems to be related to poor oral intake. Pt does not wish for feeding tube. Acute on chronic renal failure resolved with IVF, Iron Def Anemia, likely from poor oral intake, IV iron x 1 given here, to follow up with PCP as outpatient, likely poor oral intake. Rest of the stay in the hospital was uneventful, the patient is going to be high risk for infections and nutritional deficiency due to poor oral intake, this has been reviewed with the patient and her son. Discharge diagnosis: Aspiration pneumonia, Failure to thrive. - Time Spent with Patient Total time spent providing and/or coordinating discharge services: Greater than 30 minutes Medical - DS: Exam - Constitutional Vitals: Vital Signs Temp Pulse Resp BP BP Pulse Ox 07/17/17 07:09 98.9 F 58 L 16 157/69 93 07/17/17 03:29 97.7 F 59 L 19 146/77 95 07/17/17 00:00 97.9 F 64 14 134/68 95 07/16/17 19:47 97.7 F 60 14 115/62 95 07/16/17 17:25 98.3 F 16 134/64 94 Intake and Output 07/16/17 07/17/17 07/17/17 21:59 05:59 13:59 Intake Total 629.0909 / 629.0909 Output Total Balance 629.0909 / 629.0909 -1 Intake: IV 509.0909 / 509.0909 Potassium Phosphate 40 Meq In 509.0909 / 509.0909 Dextrose 5% in Water 500 ml @ 127.273 mls/hr IV ONCE ONE Rx#: [id number] Oral 60 / 60 GI Tube Flush 60 / 60 Output: # of times incontinent of urine Other: Stool Size Moderate Stool Color Brown Stool Consistency Loose # Voids 1 # of times incontinent of 1 Bowels Weight 85 lb 8 oz Additional comments: Constitutional; Afebrile, cooperative, alert, not in distress. Eyes- No icterus, , No periorbital swelling Ears- Ext ear normal, hearing normal to conversation. Neck- Midline trachea, supple Respiratory system: Air Entry equal on both sides, No crackles or wheezing, no rhonchi. CVS- Rate rhythm regular, S1,S2 heard, no gallop, no rub. Abdomen- Soft nontender abdomen, no organomegaly, no tenderness, no guarding or rigidity, ASSURANCE AUDITOR- AOOx3, moving all extremities, no gross focal deficit noted. Medical - DS: Data Procedures and tests throughout hospitalization: Chest X ray IMPRESSION: Moderate left lower lobe infiltrate and small effusion Speech Consult Patient participated in a modified barium swallow study to determine risk for aspiration. Patient did not exhibit sarah aspiration during assessment but did exhibit limited control of the liquid bolus orally, as it spread through out oral cavity and patient had difficulty managing a cohesive bolus to be able to effectively swallow. Swallow was very delayed and there was premature spillage into the oropharynx. Significant pooling in the valleculae was noted and patient was unable to effectively clear even with multiple reswallows and throat clearing. There was some trace spillage from the valleculae that would likely become aspiration. Patient was trialed on nectar thick liquids and exhibited increased bolus control with a more timely swallow (although still delayed). Puree item was also tolerated with a more timely swallow and reduced pooling in the valleculae. Recommendations for patient are for a puree/NTL diet , upright for all oral intake, chin tuck during any liquid intake in conjunction with a throat clear and reswallow each time she takes a sip of liquid. Family was educated regarding recommendations and they understand that patient is at high risk for aspiration. Patient will likely be resistive to thickened liquid regime, and other compensatory strategies may be more successful in reducing risk of aspiration. Also recommend a consult with charter representative due to patient living off of [place] and limited solid foods for the past 2 years. A consult with and ENT would also be recommended due to patient choking on solid foods/pills. She has a history of Zenkers and strictures, and was dilated several years ago according to patient. Will continue to see patient for therapy until she discharges from the hosptial. Labs on day of discharge: Labs from last 24 hours 07/17/17 07/17/17 04:11 04:11 WBC 3.8 L RBC 2.31 L Hgb 8.0 L Hct 23.4 L MCV 101.2 H MCH 34.7 H MCHC 34.3 RDW 14.9 H Plt Count 164 MPV 8.5 Gran % 52.0 Lymph % (Auto) 31.4 [place] % (Auto) 6.1 Eos % (Auto) 9.9 H Baso % (Auto) 0.6 Gran # 2.0 Lymph # (Auto) 1.2 L [place] # (Auto) 0.2 Eos # (Auto) 0.4 Baso # (Auto) 0 Sodium 135 Potassium 5.2 H Chloride 101 Carbon Dioxide 23 Anion Gap 11.0 BUN 17 Creatinine 1.1 GFR Calculation 46 Glucose 75 Uric Acid 4.0 Calcium 8.2 L Phosphorus 4.2 Magnesium 2.2 Total Bilirubin 0.2 Direct Bilirubin < 0.2 GGT 8 AST 16 ALT 6 Alkaline Phosphatase 45 Lactate Dehydrogenase 142 Total Protein 5.5 L Albumin 2.3 L Globulin 3.2 Albumin/Globulin Ratio 0.7 L Triglycerides 76 Preliminary micro results at discharge 07/13/17 15:36 Blood Culture - Preliminary Blood 07/13/17 15:27 Blood Culture - Preliminary Blood Gram positive cocci Medical - DS: A/P - Patient/Caregiver Discharge Instructions Activity: increase activity as tolerated Diet: Dysphagia Pureed, Thickened Liquids ([place] thickened liquids. Patient is able to swallow pills / Follow [place] Water protocol) Additional Instructions: Patient admitted to hospital with pneumonia, likely aspiration pna, Take antibiotics as prescribed for additional 5 more days. Follow [place] water protocol Follow up with PCP in 1 -2 weeks Follow up with ENT in 1 -2 weeks OT/PT/ST eval and treat Dietary Consult at SNF - Follow up Plan Follow up with: Yash Bassett MD [Physician] - Suzanne Smiley DO [Physician] - Anel Matthews ARNP [Primary Care Provider] - (Please coordinate primary doctor follow up with [facility] in a couple weeks) Disposition: Xfer SNF Prognosis: Fair Rehab Potential: Fair I certify that the patient requires SNF services: Yes Overall status at discharge: patient is progressing back to baseline Medical - DS: Qual - VTE Deep Vein Thrombosis/Pulmonary Embolism Present on Admission: No
--- NOTE | 2017-07-17 15:01 | XRay Report ---
CLINICAL INFORMATION: Evaluate swallowing for aspiration COMPARISON: None. FINDINGS: Please see speech pathology report IMPRESSION: Oral phase featuring discoordinated tongue and soft palate movement which impeded transfer to the pharynx. Poor tongue control resulted in premature spillage and pooling in the vallecula. A small amount of descending aspiration is noted on thin and thicker quality barium due to incomplete closure of the epiglottis. There is minor penetration into the vestibule. Incomplete focal vocal or closure allowing penetration into the trachea. This did not elicit a cough reflex Extrinsic compression of the posterior cervical esophagus at C5-6 and C6-7 due to anterior disc complexes Interpreted and Authenticated by: Matthew Hazel 07/17/17
== END 2017-07-17 13:29 | DRG 178 ==
LOC: ED 13:12 → MEDSUR 17:45
PROVIDERS: ADMIT Specialist; ATTEND Internal Medicine

== ENCOUNTER 2018-03-19 18:52 | Inpatient (IN) ==
[2018-03-19] MEDS ORDERED: 0.9 % SODIUM CHLORIDE 1,000 ML IV ONE ×2 (19:01→20:46)
[2018-03-19 20:06] LABS: Basophils # (Auto) 0 K/mcL (0.0-0.3); Basophils % (Auto) 0.4 % (0.0-2.0); Eosinophils # (Auto) 0.1 K/mcL (0.0-0.7); Eosinophils % (Auto) 1.1 % (0.0-7.0); Granulocytes % (Auto) 72.3 % (38.0-78.0); Lymphocytes # (Auto) 1.1 K/mcL (1.5-4.8); Lymphocytes % (Auto) 19.8 % (15.5-49.0); Mean Cell Volume 100.9 fL (80.0-100.0); Mean Corpuscular HGB Conc 33.7 g/dL (31.0-36.0); Monocytes # (Auto) 0.4 K/mcL (0.1-0.9); Monocytes % (Auto) 6.4 % (1.0-12.0); Platelet Count 138 K/mcL (140-440); RBC 3.14 M/mcL (4.00-5.20); Red Cell Distribution Width 13.8 % (11.5-14.5)
[2018-03-19] MEDS ORDERED: LEVOFLOXACIN 500 MG/100 ML BAG IV ONE (20:23)
--- NOTE | 2018-03-19 21:13 | Emergency Department Note ---
Weakness HPI - General Chief complaint: Weakness Stated complaint: cough, weakness Time Seen by Provider: 03/19/18 19:00 Source: patient Mode of arrival: wheelchair Limitations: no limitations - History of Present Illness HPI Narrative: Patient brought in by son in which he is been out of town but has noticed that she is been having some increased cough over the past several days. She has had a history of pneumonia in the past is somewhat concerned this may be an issue. She herself denies any shortness of breath no fever or chills she is actually denying any weakness however her son states he believes she is weaker than normal. There is been no nausea no vomiting no diarrhea constipation issues. Denies any urgency frequency or dysuria. Vision is afebrile the vital signs. Temperature is 97.6 the pulse is 83 respirations are 18 blood pressure 138/71 pulse ox is reading 100% on room air any pain patient does have a history of COPD she is been a heavy smoker in the past - Related Data Home Medications Medication Instructions Recorded Confirmed Losartan Potassium [Cozaar] 100 mg PO DAILY 05/27/17 11/09/17 Metoprolol Tartrate [Lopressor] 50 mg PO DAILY 05/27/17 11/09/17 Montelukast Sodium [Singulair] 10 mg PO DAILY 05/27/17 11/09/17 Omeprazole [Prilosec] 20 mg PO DAILY 05/27/17 11/09/17 Oxybutynin Chloride [Ditropan] 5 mg PO BID 05/27/17 11/09/17 Simvastatin [Zocor] 40 mg PO DAILY 05/27/17 11/09/17 Benzonatate [Tessalon Perle] 100 mg PO Q8HP PRN 07/13/17 07/13/17 Previous Rx's Medication Instructions Recorded L. Rhamnosus GG/Inulin [Culturelle 1 each PO BID #60 cap.sprink 06/01/17 Capsule] Cefdinir 300 mg PO BID #10 cap 07/17/17 metroNIDAZOLE [Metronidazole] 500 mg PO TID #15 tab 07/17/17 Allergies Allergy/AdvReac Type Severity Reaction Status Date / Time Penicillins Allergy Unknown Unknown Verified 07/13/17 13:16 Review of Systems All systems ED: reviewed and negative except as stated. Constitutional: Denies: fever, chills Eyes: Denies: eye pain ENT ED: Denies: ear pain Cardiovascular: Denies: chest pain Respiratory: Reports: cough. Denies: shortness of breath, wheezes, phlegm, hemoptysis Gastrointestinal: Denies: abdominal pain Genitourinary: Denies: dysuria Musculoskeletal: Denies: back pain Integumentary: Denies: rash Neurological: Reports: weakness. Denies: as per HPI, headache, numbness, paresthesias Psychiatric: Denies: anxiety Endocrine: Denies: fatigue Hematological/Lymphatic: Denies: easy bleeding Past Medical History - Past Medical History [facility] Narrative: All Active Problems Community acquired pneumonia (Acute) Left lower lobe pneumonia (Acute) CKD (chronic kidney disease), stage III (Chronic) Hypertension (Chronic) Hypercholesterolemia (Chronic) Anemia (Chronic) Sebaceous cyst (Acute) Diarrhea (Acute) Lactic acid acidosis (Acute) Dehydration, mild (Acute) Medical history: Reports: GERD, hyperlipidemia, hypertension. Denies: CHF Psychiatric history: Reports: no psych history [employer] history: Reports: non-contributory Surgical history ED: Reports: non-contributory - Social History smoking status: Never smoker Alcohol use: Reports: None Drug use: Reports: none Physical Exam Limitations: no limitations General appearance: alert Head: atraumatic, normocephalic Eye: Present: normal appearance, PERRL ENT: normal exam, normal oropharynx, mucous membranes dry Neck: Present: normal inspection, full ROM, trachea midline Chest: Present: normal inspection, symmetric chest wall rise. Absent: tenderness Respiratory: Present: normal lung sounds bilaterally. Absent: respiratory distress, rales/crackles, wheezes Cardiovascular: Present: regular rate, normal rhythm, normal heart sounds. Absent: bradycardia, tachycardia, irregular rhythm Abdominal: Present: soft, normal bowel sounds. Absent: distention, tenderness, guarding, rebound, rigidity Extremities: Present: normal inspection, full ROM. Absent: tenderness Back: Present: normal inspection, full ROM. Absent: tenderness, CVA tenderness (R), CVA tenderness (L), L-S tenderness, muscle spasm Neurological: Present: alert, oriented X3, CN II-XII intact, normal gait. Absent: motor sensory deficit Psychiatric: Present: normal affect, normal mood Skin: Present: warm Course Vital Signs Temperature 97.6 F 03/19/18 18:53 Pulse Rate 83 03/19/18 18:53 Respiratory Rate 18 03/19/18 18:53 Blood Pressure 138/71 03/19/18 18:53 Pulse Oximetry (%) 100 03/19/18 18:53 Temperature 98.2 F 03/19/18 20:56 Pulse Rate 64 03/19/18 20:57 Respiratory Rate 18 03/19/18 20:57 Blood Pressure 122/88 03/19/18 20:46 Pulse Oximetry (%) 98 03/19/18 20:57 Weakness - MDM Narrative Medical decision making narrative: WBC is 5600 with a hemoglobin 10.7 and a hematocrit of 31. Lactic acid is 2.6 sodium is 144 the potassium 4.9 BUN is 58 creatinine 1.8 the BNP is 2151. Patient's urine straight cath was very purulent milky a very small amount. The sample was sent to the lab were unable to do a UA but were able to do a culture culture and sensitivity has been ordered patient was started initially on Levaquin R has been contacted and he felt that 2 g of Rocephin should also be added. We are attempting to try to get another straight cath in a better UA sample patient to be admitted she has been reluctant to stay but finally agreed to be admitted - Lab Data Result diagrams: 03/19/18 19:22 Lab Results 03/19/18 03/19/18 03/19/18 Range/Units 19:22 19:22 19:22 WBC 5.6 (4.5-11.0) K/mcL RBC 3.14 L (4.00-5.20) M/mcL Hgb 10.7 L (12.0-15.0) g/dL Hct 31.7 L (36.0-48.0) % POC Hct 31.0 L (36.0-48.0) % MCV 100.9 H (80.0-100.0) fL MCH 34.0 (26.0-34.0) pg MCHC 33.7 (31.0-36.0) g/dL RDW 13.8 (11.5-14.5) % Plt Count 138 L (140-440) K/mcL MPV 9.2 (7.4-10.4) fL Gran % 72.3 (38.0-78.0) % Lymph % (Auto) 19.8 (15.5-49.0) % Stark % (Auto) 6.4 (1.0-12.0) % Eos % (Auto) 1.1 (0.0-7.0) % Baso % (Auto) 0.4 (0.0-2.0) % Gran # 4.0 (1.8-8.0) K/mcL Lymph # (Auto) 1.1 L (1.5-4.8) K/mcL Stark # (Auto) 0.4 (0.1-0.9) K/mcL Eos # (Auto) 0.1 (0.0-0.7) K/mcL Baso # (Auto) 0 (0.0-0.3) K/mcL VBG Lactic Acid 2.6 H (0.5-2.0) mmol/L POC Sodium 144 (133-145) mmol/L POC Potassium 4.9 (3.3-5.1) mmol/L POC Chloride 110 H (96-108) mmol/L POC Total CO2 19 L (22-30) mmol/L POC BUN 58 H (8-23) mg/dl POC Creatinine 1.8 H (0.6-1.1) mg/dl POC Glucose 74 (70-105) mg/dL POC WB Ioniz Calcium 1.25 (1.16-1.32) mmol/L NT-Pro-B Natriuret Pep 2151.0 H (0-450) pg/ml Urine Color Urine Appearance Urine pH Ur Specific [place] Urine Protein Urine Glucose (UA) Urine Ketones Urine Occult Blood Urine Nitrate Urine Bilirubin Urine Urobilinogen Ur Leukocyte Esterase 03/19/18 Range/Units 20:24 WBC (4.5-11.0) K/mcL RBC (4.00-5.20) M/mcL Hgb (12.0-15.0) g/dL Hct (36.0-48.0) % POC Hct (36.0-48.0) % MCV (80.0-100.0) fL MCH (26.0-34.0) pg MCHC (31.0-36.0) g/dL RDW (11.5-14.5) % Plt Count (140-440) K/mcL MPV (7.4-10.4) fL Gran % (38.0-78.0) % Lymph % (Auto) (15.5-49.0) % Stark % (Auto) (1.0-12.0) % Eos % (Auto) (0.0-7.0) % Baso % (Auto) (0.0-2.0) % Gran # (1.8-8.0) K/mcL Lymph # (Auto) (1.5-4.8) K/mcL Stark # (Auto) (0.1-0.9) K/mcL Eos # (Auto) (0.0-0.7) K/mcL Baso # (Auto) (0.0-0.3) K/mcL VBG Lactic Acid (0.5-2.0) mmol/L POC Sodium (133-145) mmol/L POC Potassium (3.3-5.1) mmol/L POC Chloride (96-108) mmol/L POC Total CO2 (22-30) mmol/L POC BUN (8-23) mg/dl POC Creatinine (0.6-1.1) mg/dl POC Glucose (70-105) mg/dL POC WB Ioniz Calcium (1.16-1.32) mmol/L NT-Pro-B Natriuret Pep (0-450) pg/ml Urine Color TNP Urine Appearance Not Reportable Urine pH Not Reportable Ur Specific [place] Not Reportable Urine Protein Not Reportable Urine Glucose (UA) Not Reportable Urine Ketones Not Reportable Urine Occult Blood Not Reportable Urine Nitrate Not Reportable Urine Bilirubin Not Reportable Urine Urobilinogen Not Reportable Ur Leukocyte Esterase Not Reportable Disposition Pt seen by PROBATE CLERK/PA only: No Clinical Impression: Complicated UTI (urinary tract infection) Disposition: Xfer As Inpt ([facility]) Condition: Fair Referrals: Anel Matthews ARNP [Primary Care Provider] - Time of Disposition: 21:36
[2018-03-19] MEDS ORDERED: cefTRIAXone 2 GM in DEXTROSE 5% IN WATER 50 ML IV ONE (21:34)
--- NOTE | 2018-03-19 21:34 | Internal Med History&Physical ---
Medical - H&P: [facility] Patient information: Note initiated : 03/19/18 at 9:34 pm Service Date, if different from initiated Date: [] Patient: Belle Celaya a 87 y/o F admitted on for cough, weakness. Chief Complaint: [] Chief complaint: Weakness and chills History of present illness: Ms. Celaya is a 87 year old F with a history of hypertension/hyperlipidemia who lives with her daughter and presents today with worsening weakness that evolved over the last 1 week. Patient denies any sick contacts. She endorses to cough, productive sputum along with progressive fatigue, malaise lethargy and shaking chills. She however denies shortness of breath. With increasing concerns family brought her to [place] ER Patient workup was significant for pyuria on urine dip/tachycardia and early sepsis along with KELLY-creatinine 1.8. Patient was started on crystalloids along with antibiotics after cultures were drawn. Hospitalist service was consulted At the time of evaluation patient is accompanied with her son-in-law Pernell. She was able to answer most of the questions. She denies any concerns or distress. She is feeling a lot better. She is usually on liquid diet due to esophageal strictures. She denies recent changes in medications, also denies associated chest pain, nausea, dysuria or diarrhea. Review of systems 10 point review of system was performed and is negative except for one discussed above Medical - H&P: PMH Medical history: Hypertension Allergy disorder Hyperlipidemia Urinary incontinence GERD Esophageal stricture Surgical history: Nonsignificant except for esophageal dilatation for stricture Pertinent family history: Of minimal significance given advanced age Social history: Denies smoking or alcohol history Lives with daughter and son-in-law Smoking status: Smoker, status unknown Have you smoked in the last 12 months: No Drug use: none Alcohol use: none Medical - H&P: Meds Home Medications Medication Instructions Recorded Confirmed Type Losartan Potassium [Cozaar] 100 mg PO DAILY 05/27/17 03/19/18 History Metoprolol Tartrate [Lopressor] 50 mg PO BID 05/27/17 03/19/18 History Montelukast Sodium [Singulair] 10 mg PO DAILY 05/27/17 03/19/18 History Oxybutynin Chloride [Ditropan] 5 mg PO BID 05/27/17 03/19/18 History Simvastatin [Zocor] 40 mg PO DAILY 05/27/17 03/19/18 History Allergies Allergy/AdvReac Type Severity Reaction Status Date / Time Penicillins Allergy Severe Anaphylaxis Verified 03/20/18 07:54 Medical - H&P: Exam - Constitutional Vitals: Temp Pulse Resp BP Pulse Ox 98.2 F 100 H 18 126/97 98 03/19/18 20:56 03/19/18 21:26 03/19/18 21:26 03/19/18 21:16 03/19/18 21:26 General appearance: no acute distress Exam: Alert and nondistressed head normocephalic Oral cavity dry No ear nose discharge Neck lymphadenopathy S1-S2 regular rhythm, ESM grade 1 Diminished breath sounds bases Abdomen soft , sacral decubitus stage I lower extremity no cyanosis clubbing or joint swelling Psych alert cooperative neuro nonfocal Medical - H&P: Reslt - Labs CBC & Chem 7: 03/20/18 04:15 03/20/18 04:15 Labs: Short CBC 03/19/18 Range/Units 19:22 WBC 5.6 (4.5-11.0) K/mcL Hgb 10.7 L (12.0-15.0) g/dL Hct 31.7 L (36.0-48.0) % Plt Count 138 L (140-440) K/mcL Urine 03/19/18 Range/Units 20:24 Urine Color TNP Urine Appearance Not Reportable Urine pH Not Reportable Ur Specific [place] Not Reportable Urine Protein Not Reportable Urine Glucose (UA) Not Reportable Medical - H&P: A/P (1) KELLY (acute kidney injury) Current visit: Yes Status: Acute * Acute kidney injury likely secondary to volume depletion. Creatinine 1.8. continue crystalloids. * Volume depletion with elevated lactate suggestive of endorgan hypoperfusion, secondary to poor oral intake and feeling sick. continue crystalloids * Weakness and deconditioning secondary to above-aggressive physical therapy/ nutrition support * Cough likely acute bronchitis. Continue bronchodilators * History dysphagia continue liquid diet. * History of hypertension-continue prior home medications * History of GERD continue PPI * Prophylaxis heparin Plan * Continue crystalloids * Monitor renal function * Physical therapy/nutrition support * Liquid diet * Inpatient admit in light of acute renal failure/severe dehydration and 87-year -old requiring a minimum 2 midnight hospitalization
[2018-03-19] MEDS ORDERED: MAGNESIUM SULFATE 2 GM/50 ML BAG IV PRN (22:22)
[2018-03-19] MEDS ORDERED: CEFEPIME 2 GM in DEXTROSE 5% IN WATER 50 ML IV SCH (22:22)
[2018-03-19] MEDS ORDERED: POTASSIUM CHLORIDE 20 MEQ PACKET PO PRN (22:22)
[2018-03-19] MEDS ORDERED: ACETAMINOPHEN 325 MG TABLET PO PRN (22:22)
[2018-03-19] MEDS ORDERED: ACETAMINOPHEN 500 MG/50 ML BOTTLE IV PRN (22:22)
[2018-03-19] MEDS ORDERED: ONDANSETRON 4 MG/2 ML VIAL IV PRN (22:22)
[2018-03-19 22:42] LABS: Appearance,Urine CLEAR; Bacteria,Urine 0 /hpf (0); Bilirubin,Urine NEG (NEG); Color,Urine YELLOW; Glucose,Urine (UA) NEGATIVE (NEG); Leukocyte Esterase,Urine NEG /uL (NEG); Mucus,Urine FEW /hpf (0); Protein,Urine NEG (NEG); Specific Gravity,Urine 1.015 (1.000-1.035); Urine Amorphous Crystals FEW /hpf (0); Urine Blood NEG mg/dL (<0.03); Urine Hyaline Cast 4 /lpf (0-2); Urine RBC 1 /hpf (0-1); Urine Squamous Epithelial Cell < 1 /hpf (0-4); Urine WBC 0 /hpf (0-4); Urobilinogen,Urine NEG (NEG)
[2018-03-19] MEDS: 0.9 % SODIUM CHLORIDE 10 ML SYRINGE IV SCH (22:57)
[2018-03-19] MEDS: 0.9 % SODIUM CHLORIDE 1,000 ML IV SCH (22:58)
[2018-03-20] MEDS: 0.9 % SODIUM CHLORIDE 10 ML SYRINGE IV SCH ×3 (04:36→21:10)
[2018-03-20 06:23] LABS: Mean Cell Volume 101.8 fL (80.0-100.0); Mean Corpuscular HGB Conc 34.2 g/dL (31.0-36.0); Mean Corpuscular Hemoglobin 34.8 pg (26.0-34.0); Platelet Count 99 K/mcL (140-440); RBC 2.42 M/mcL (4.00-5.20); Red Cell Distribution Width 13.9 % (11.5-14.5)
[2018-03-20 06:26] LABS: ALT/SGPT 17 U/l (0-40); Albumin 2.5 gm/dL (3.2-5.2); Albumin/Globulin Ratio 0.7 (1.0-2.3); Alkaline Phosphatase 49 U/L (39-117); Bilirubin,Direct < 0.2 mg/dL (0.0-0.3); Blood Urea Nitrogen 56 mg/dl (8-23); Gamma Glutamyl Transpeptidase 11 U/L (5-36)
[2018-03-20] MEDS ORDERED: POTASSIUM CHLORIDE 20 MEQ TABLET PO ONE ×2 (07:45→09:45)
[2018-03-20 08:21] LABS: Eosinophils % (Manual) 2 % (0-7); Lymphocytes % 13 % (15-49); Macrocytosis 1+ (NONE SEEN); Monocytes % (Manual) 4 % (1-12); Platelet Estimate DECREASED (NORMAL); RBC Morphology ABNORM (NORMAL); Segmented Neutrophils % 81 % (38-78)
[2018-03-20] MEDS: DOCUSATE SODIUM 100 MG CAPSULE PO SCH ×2 (08:35→21:06)
[2018-03-20] MEDS: MULTIVIT,THER IRON,CA,FA & MIN 1 TABLET PO SCH (08:35)
[2018-03-20] MEDS: HEPARIN 5,000 UNIT/ML VIAL SQ SCH ×2 (08:35→21:06)
[2018-03-20] MEDS ORDERED: cefTRIAXone 2 GM VIAL IM SCH (09:00)
--- NOTE | 2018-03-20 09:04 | XRay Report ---
HISTORY: Cough and weakness FINDINGS: There is minor interstitial fibrosis the costophrenic sulci bilaterally. The moderate size consolidating infiltrate and left-sided pleural effusion have resolved since prior exam done on 07/13/17. No new infiltrate has developed. There is no evidence of mass or congestive heart failure. The heart size is normal. The right humeral head is subluxed superiorly. This is indirect evidence of a rotator cuff tear. 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 The exam is otherwise normal without evidence of pneumonia Dr. Castrejon was called with results Interpreted and Authenticated by: Luis Madrid 03/20/18
--- NOTE | 2018-03-20 10:18 | Internal Med Progress Note ---
Medical - PN: Subj Patient information: Note initiated : 03/20/18 at 10:16 am Service Date, if different from initiated Date: [] Patient: Belle Celaya a 87 y/o F admitted on 03/19/18 for cough, weakness. Chief Complaint: [] Interval history: Ms. Celaya is a 87 year old F with a history of hypertension/hyperlipidemia who lives with her daughter and presents today with worsening weakness that evolved over the last 1 week. Patient denies any sick contacts. She endorses to cough, productive sputum along with progressive fatigue, malaise lethargy and shaking chills. She however denies shortness of breath. With increasing concerns family brought her to [place] ER Patient workup was significant for pyuria on urine dip/tachycardia and early sepsis along with KELLY-creatinine 1.8. Patient was started on crystalloids along with antibiotics after cultures were drawn. Hospitalist service was consulted At the time of evaluation patient is accompanied with her son-in-law Pernell. She was able to answer most of the questions. She denies any concerns or distress. She is feeling a lot better. She is usually on liquid diet due to esophageal strictures. She denies recent changes in medications, also denies associated chest pain, nausea, dysuria or diarrhea. 03/20-patient had a rough night with persistent cough and productive sputum. Repeat chest x-ray in 24 hours. Continue empiric antibiotic and de-escalate based on cultures. Continue aggressive physical therapy/nutrition support/ liquid diet in light of esophageal stricture. - Constitutional Vitals: Vital Signs Temp Pulse Resp BP Pulse Ox 98.1 F 98 H 14 109/53 94 03/20/18 07:50 03/20/18 02:22 03/20/18 07:50 03/20/18 07:50 03/20/18 07:50 Period Temp Pulse Resp BP Sys/Sparks Pulse Ox Last 24 Hr 97.4 F-98.3 F 39-101 14-30 95-172/53-97 94-100 Intake and Output 03/19/18 03/20/18 03/20/18 21:59 05:59 13:59 Intake Total 1100 / 1100 1050 / 1050 Balance 1100 / 1100 1050 / 1050 Weight 80 lb 79 lb Intake & Output: Intake & Output 03/19/18 03/20/18 03/20/18 21:59 05:59 13:59 Intake Total 1100 / 1100 1050 / 1050 Balance 1100 / 1100 1050 / 1050 Weight 80 lb 79 lb Intake: IV 1100 / 1100 1000 / 1000 Sodium Chloride 0.9% 1,000 ml @ 1000 / 1000 1000 / 1000 Wide Open IV BOLUS ONE Rx#: [id number] Oral 50 / 50 Other: Urine Appearance Fem Cath Cloudy Sediment Mucous Threads Purulent Urine Color Fem Cath Pale General appearance: no acute distress Exam: Undernourished no anxiety Nonlabored breathing Persistent cough Nondistended abdomen Medical - PN: Obj Da - Labs CBC & Chem 7: 03/20/18 04:15 03/20/18 04:15 Labs: Abnormal Lab Results 03/20/18 03/20/18 03/19/18 04:15 04:15 22:40 WBC 4.0 L RBC 2.42 L Hgb 8.4 L Hct 24.6 L POC Hct MCV 101.8 H MCH 34.8 H Plt Count 99 L Lymph # (Auto) Seg Neutrophils % 81 H Lymphocytes % 13 L RBC Morphology Abnorm A Macrocytosis 1+ A ESR VBG Lactic Acid POC Chloride Chloride 112 H Carbon Dioxide 18 L POC Total CO2 POC BUN BUN 56 H Creatinine 1.5 H POC Creatinine Calcium 8.4 L C-Reactive Protein 3.0 H NT-Pro-B Natriuret Pep Albumin 2.5 L Albumin/Globulin Ratio 0.7 L Urine Ketones Amorphous Crystals Hyaline Casts 03/19/18 03/19/18 03/19/18 22:40 21:55 19:22 WBC RBC Hgb Hct POC Hct MCV MCH Plt Count Lymph # (Auto) Seg Neutrophils % Lymphocytes % RBC Morphology Macrocytosis ESR 54 H VBG Lactic Acid 2.6 H POC Chloride Chloride Carbon Dioxide POC Total CO2 POC BUN BUN Creatinine POC Creatinine Calcium C-Reactive Protein NT-Pro-B Natriuret Pep Albumin Albumin/Globulin Ratio Urine Ketones 5/tr A Amorphous Crystals Few A Hyaline Casts 4 H 03/19/18 03/19/18 19:22 19:22 WBC RBC 3.14 L Hgb 10.7 L Hct 31.7 L POC Hct 31.0 L MCV 100.9 H MCH Plt Count 138 L Lymph # (Auto) 1.1 L Seg Neutrophils % Lymphocytes % RBC Morphology Macrocytosis ESR VBG Lactic Acid POC Chloride 110 H Chloride Carbon Dioxide POC Total CO2 19 L POC BUN 58 H BUN Creatinine POC Creatinine 1.8 H Calcium C-Reactive Protein NT-Pro-B Natriuret Pep 2151.0 H Albumin Albumin/Globulin Ratio Urine Ketones Amorphous Crystals Hyaline Casts Meds: Medications Acetaminophen (Tylenol) 650 mg PO Q4-6HP PRN PRN Reason: PAIN/FEVER > 101 Docusate Sodium (Colace) 100 mg PO BID [facility] Last Admin: 03/20/18 08:35 Dose: 100 mg Heparin Sodium (Porcine) (Heparin) 5,000 unit SQ Q12 [facility] Last Admin: 03/20/18 08:35 Dose: 5,000 unit Magnesium Sulfate (Magnesium Sulfate) 2 gm in 50 mls @ 50 mls/hr IV UD PRN PRN Reason: MG = or < 1.7 Sodium Chloride (Sodium Chloride 0.9%) 1,000 mls @ 50 mls/hr IV .Q20H [facility] Stop: 03/22/18 10:21 Last Admin: 03/19/18 22:58 Dose: 50 mls/hr Acetaminophen (Ofirmev) 500 mg in 50 mls @ 100 mls/hr IV Q6HP PRN PRN Reason: PAIN/FEVER > 101 Ceftriaxone Sodium 2 gm/ (Dextrose) 50 mls @ 100 mls/hr IV DAILY [facility] Iron Carb/Multivit/Noble/Folic Acid (Multivitamin W/Minerals) 1 tab PO DAILY [facility] Last Admin: 03/20/18 08:35 Dose: 1 tab Ondansetron HCl (Zofran) 4 mg IV Q4-6HP PRN PRN Reason: Nausea And Vomiting Potassium Chloride (Klor-Con) 40 meq PO DAILYP PRN PRN Reason: K+ < 3.5 Senna/Docusate Sodium (Senna Plus Tablet) 1 tab PO HS [facility] Sodium Chloride (Saline Flush) 10 ml IV Q8 [facility] Last Admin: 03/20/18 04:36 Dose: Not Given Medical - PN: A/P - Time Spent With Patient Total time spent is greater than 50% in coordination of care (as documented) at patient's floor/unit and/or counseling patient: 25 - 35 minutes (1) KELLY (acute kidney injury) Status: Acute Assessment and plan: * Acute renal failure clinically improving. Secondary to volume depletion. Creatinine down from 1.8-1.5 * Volume depletion with elevated lactate suggestive of endorgan hypoperfusion, clinically improving with crystalloids. * Weakness and deconditioning -continue physical therapy/nutrition support * Cough likely acute bronchitis. Continue bronchodilators/repeat chest imaging 24 hours * History dysphagia/esophageal stricture- continue liquid diet. * History of hypertension-continue prior home medications * History of GERD continue PPI * Prophylaxis heparin Plan * Continue crystalloids * Bronchodilators * Monitor renal function * repeat chest imaging in 24 hours * Physical therapy/nutrition support * Liquid diet Current Visit: Yes Medical - PN: Qual - VTE Deep Vein Thrombosis/Pulmonary Embolism Present on Admission: No
[2018-03-20] MEDS: IPRATROPIUM/ALBUTEROL 3 ML AMPUL.NEB NEB SCH ×4 (11:14→23:14)
[2018-03-20] MEDS ORDERED: cefTRIAXone 2 GM in DEXTROSE 5% IN WATER 50 ML IV SCH (12:00)
[2018-03-20] MEDS: 0.9 % SODIUM CHLORIDE 1,000 ML IV SCH ×2 (12:50→21:26)
[2018-03-20] MEDS ORDERED: MELATONIN 3 MG TABLET PO PRN (20:59)
[2018-03-20] MEDS ORDERED: traZODone HCL 50 MG TABLET PO PRN (21:01)
[2018-03-20] MEDS: SENNOSIDES/DOCUSATE SODIUM 1 TAB TABLET PO SCH (21:06)
[2018-03-21] MEDS: IPRATROPIUM/ALBUTEROL 3 ML AMPUL.NEB NEB SCH ×6 (04:21→22:34)
[2018-03-21] MEDS: 0.9 % SODIUM CHLORIDE 10 ML SYRINGE IV SCH ×3 (04:21→20:56)
[2018-03-21 05:29] LABS: Mean Cell Volume 101.7 fL (80.0-100.0); Mean Corpuscular HGB Conc 33.9 g/dL (31.0-36.0); Mean Corpuscular Hemoglobin 34.5 pg (26.0-34.0); Platelet Count 86 K/mcL (140-440); RBC 2.27 M/mcL (4.00-5.20)
[2018-03-21 05:55] LABS: ALT/SGPT 14 U/l (0-40); Albumin 2.3 gm/dL (3.2-5.2); Albumin/Globulin Ratio 0.7 (1.0-2.3); Alkaline Phosphatase 45 U/L (39-117); Bilirubin,Direct < 0.2 mg/dL (0.0-0.3); Blood Urea Nitrogen 53 mg/dl (8-23); Gamma Glutamyl Transpeptidase 9 U/L (5-36); Uric Acid 6.8 mg/dL (2.5-8.0)
[2018-03-21 06:42] LABS: Lymphocytes % 22 % (15-49); Macrocytosis 1+ (NONE SEEN); Monocytes % (Manual) 4 % (1-12); Platelet Estimate DECREASED (NORMAL); RBC Morphology ABNORM (NORMAL); Rouleaux PRESENT (NONE SEEN); Segmented Neutrophils % 74 % (38-78)
[2018-03-21] MEDS: SIMVASTATIN 40 MG TABLET PO SCH (08:54)
[2018-03-21] MEDS: METOPROLOL TARTRATE 50 MG TABLET PO SCH ×2 (08:57→20:42)
[2018-03-21] MEDS: 0.9 % SODIUM CHLORIDE 1,000 ML IV SCH (08:58)
--- NOTE | 2018-03-21 09:00 | XRay Report ---
HISTORY: Cough and weakness FINDINGS: A small alveolar infiltrate has developed in the left lower lobe and there is blunting of the left costophrenic sulcus. This is a new finding since 03/19/18. The right lung is clear. Heart size is normal. The aorta is tortuous. IMPRESSION: New onset mild left lower lobe pneumonia Interpreted and Authenticated by: Luis Madrid 03/21/18
[2018-03-21] MEDS: DOCUSATE SODIUM 100 MG CAPSULE PO SCH ×2 (09:02→20:42)
[2018-03-21] MEDS: MONTELUKAST 10 MG TABLET PO SCH (09:02)
[2018-03-21] MEDS: LOSARTAN 50 MG TABLET PO SCH (09:03)
[2018-03-21] MEDS: MULTIVIT,THER IRON,CA,FA & MIN 1 TABLET PO SCH (09:03)
[2018-03-21 09:11] LABS: Vitamin B12 1556 pg/ml (232-1245)
--- NOTE | 2018-03-21 11:20 | Internal Med Progress Note ---
Medical - PN: Subj Patient information: Note initiated : 03/21/18 at 11:14 am Service Date, if different from initiated Date: [] Patient: Belle Celaya a 87 y/o F admitted on 03/19/18 for cough, weakness. Chief Complaint: [] Interval history: Ms. Celaya is a 87 year old F with a history of hypertension/hyperlipidemia who lives with her daughter and presents today with worsening weakness that evolved over the last 1 week. Patient denies any sick contacts. She endorses to cough, productive sputum along with progressive fatigue, malaise lethargy and shaking chills. She however denies shortness of breath. With increasing concerns family brought her to [place] [facility] Patient workup was significant for pyuria on urine dip/tachycardia and early sepsis along with KELLY-creatinine 1.8. Patient was started on crystalloids along with antibiotics after cultures were drawn. Hospitalist service was consulted At the time of evaluation patient is accompanied with her son-in-law Pernell. She was able to answer most of the questions. She denies any concerns or distress. She is feeling a lot better. She is usually on liquid diet due to esophageal strictures. She denies recent changes in medications, also denies associated chest pain, nausea, dysuria or diarrhea. 03/20-patient had a rough night with persistent cough and productive sputum. Repeat chest x-ray in 24 hours. Continue empiric antibiotic and de-escalate based on cultures. Continue aggressive physical therapy/nutrition support/ liquid diet in light of esophageal stricture. 03/21 Pt seen examined, no acute overnigh issues, pt this AM feeling chills and cold, but no fever noted no cough, no other symptoms hb, wbc and platlets low, chronically so, repeat b12, folate is normal she is on a liquid diet, for her esophageal stricture. urine culture is GNB, await sensitivities cxr repeat is neg not on ABX ? did receive rocephin and levo in ER XRay chest shows pna, start on levofloxacin and flagyl to cover for uti and pna (pna likely aspirational) Pertinent ROS: Denies headache, dizziness Denies chest pain, palpitations chronic cough present, also has some shortness of breath Denies abdominal pain, nausea or vomiting. - Constitutional Vitals: Vital Signs Temp Pulse Resp BP Pulse Ox 98.5 F 116 H 16 107/59 98 03/21/18 09:14 03/21/18 09:14 03/21/18 08:39 03/21/18 09:14 03/21/18 09:14 Period Temp Pulse Resp BP Sys/Sparks Pulse Ox Last 24 Hr 97.6 F-99 F 64-118 14-20 102-115/53-68 93-98 Intake and Output 03/20/18 03/21/18 03/21/18 21:59 05:59 13:59 Intake Total 580 / 580 140 / 140 1230 / 1230 Output Total Balance 578 / 578 130 / 130 1230 / 1230 Weight 81 lb Intake & Output: Intake & Output 03/20/18 03/21/18 03/21/18 21:59 05:59 13:59 Intake Total 580 / 580 140 / 140 1230 / 1230 Output Total Balance 578 / 578 130 / 130 1230 / 1230 Weight 81 lb Intake: IV 1000 / 1000 Sodium Chloride 0.9% 1,000 ml @ 1000 / 1000 50 mls/hr IV .Q20H [facility] Rx#: [id number] Oral 580 / 580 140 / 140 230 / 230 Output: Void Amount # of times incontinent of urine Other: Urine Appearance Clear Urine Color Bright Yellow Urine Odor Normal Exam: Constitutional; Afebrile, cooperative, alert, not in distress. Respiratory system: Air Entry equal on both sides, No crackles or wheezing, no rhonchi. CVS- Rate rhythm regular, S1,S2 heard, no gallop, no rub. 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 Medical - PN: Obj Da - Labs CBC & Chem 7: 03/21/18 04:21 03/21/18 04:21 Labs: Abnormal Lab Results 03/21/18 03/21/18 03/21/18 07:41 07:40 04:21 WBC RBC Hgb Hct POC Hct MCV MCH Plt Count Lymph # (Auto) Seg Neutrophils % Lymphocytes % RBC Morphology Macrocytosis Rouleaux ESR VBG Lactic Acid POC Chloride Chloride 113 H Carbon Dioxide 15 L POC Total CO2 POC BUN BUN 53 H Creatinine 1.6 H POC Creatinine Glucose 153 H Calcium 8.2 L Phosphorus 2.3 L C-Reactive Protein NT-Pro-B Natriuret Pep Total Protein 5.6 L Albumin 2.3 L Albumin/Globulin Ratio 0.7 L Vitamin B12 1556 H Folate > 20.0 H Urine Ketones Amorphous Crystals Hyaline Casts 03/21/18 03/20/18 03/20/18 04:21 04:15 04:15 WBC 2.8 L 4.0 L RBC 2.27 L 2.42 L Hgb 7.8 L 8.4 L Hct 23.1 L 24.6 L POC Hct MCV 101.7 H 101.8 H MCH 34.5 H 34.8 H Plt Count 86 L 99 L Lymph # (Auto) Seg Neutrophils % 81 H Lymphocytes % 13 L RBC Morphology Abnorm A Abnorm A Macrocytosis 1+ A 1+ A Rouleaux Present A ESR VBG Lactic Acid POC Chloride Chloride 112 H Carbon Dioxide 18 L POC Total CO2 POC BUN BUN 56 H Creatinine 1.5 H POC Creatinine Glucose Calcium 8.4 L Phosphorus C-Reactive Protein NT-Pro-B Natriuret Pep Total Protein Albumin 2.5 L Albumin/Globulin Ratio 0.7 L Vitamin B12 Folate Urine Ketones Amorphous Crystals Hyaline Casts 03/19/18 03/19/18 03/19/18 22:40 22:40 21:55 WBC RBC Hgb Hct POC Hct MCV MCH Plt Count Lymph # (Auto) Seg Neutrophils % Lymphocytes % RBC Morphology Macrocytosis Rouleaux ESR 54 H VBG Lactic Acid POC Chloride Chloride Carbon Dioxide POC Total CO2 POC BUN BUN Creatinine POC Creatinine Glucose Calcium Phosphorus C-Reactive Protein 3.0 H NT-Pro-B Natriuret Pep Total Protein Albumin Albumin/Globulin Ratio Vitamin B12 Folate Urine Ketones 5/tr A Amorphous Crystals Few A Hyaline Casts 4 H 03/19/18 03/19/18 03/19/18 19:22 19:22 19:22 WBC RBC 3.14 L Hgb 10.7 L Hct 31.7 L POC Hct 31.0 L MCV 100.9 H MCH Plt Count 138 L Lymph # (Auto) 1.1 L Seg Neutrophils % Lymphocytes % RBC Morphology Macrocytosis Rouleaux ESR VBG Lactic Acid 2.6 H POC Chloride 110 H Chloride Carbon Dioxide POC Total CO2 19 L POC BUN 58 H BUN Creatinine POC Creatinine 1.8 H Glucose Calcium Phosphorus C-Reactive Protein NT-Pro-B Natriuret Pep 2151.0 H Total Protein Albumin Albumin/Globulin Ratio Vitamin B12 Folate Urine Ketones Amorphous Crystals Hyaline Casts Meds: Medications Acetaminophen (Tylenol) 650 mg PO Q4-6HP PRN PRN Reason: PAIN/FEVER > 101 Albuterol/Ipratropium (Duoneb) 3 ml NEB Q4HRT [facility] Last Admin: 03/21/18 08:34 Dose: 3 ml Docusate Sodium (Colace) 100 mg PO BID [facility] Last Admin: 03/21/18 09:02 Dose: 100 mg Magnesium Sulfate (Magnesium Sulfate) 2 gm in 50 mls @ 50 mls/hr IV UD PRN PRN Reason: MG = or < 1.7 Sodium Chloride (Sodium Chloride 0.9%) 1,000 mls @ 50 mls/hr IV .Q20H [facility] Stop: 03/22/18 10:21 Last Admin: 03/21/18 08:58 Dose: 50 mls/hr Acetaminophen (Ofirmev) 500 mg in 50 mls @ 100 mls/hr IV Q6HP PRN PRN Reason: PAIN/FEVER > 101 Iron Carb/Multivit/Operations Engineer/Folic Acid (Multivitamin W/Minerals) 1 tab PO DAILY [facility] Last Admin: 03/21/18 09:03 Dose: 1 tab Losartan Potassium (Cozaar) 100 mg PO DAILY [facility] Last Admin: 03/21/18 09:03 Dose: Not Given Melatonin (Melatonin 3mg Tablet) 3 mg PO HSP PRN PRN Reason: Insomnia Last Admin: 03/20/18 21:06 Dose: 3 mg Metoprolol Tartrate (Lopressor) 50 mg PO BID [facility] Last Admin: 03/21/18 08:57 Dose: 50 mg Montelukast Sodium (Singular) 10 mg PO DAILY [facility] Last Admin: 03/21/18 09:02 Dose: 10 mg Ondansetron HCl (Zofran) 4 mg IV Q4-6HP PRN PRN Reason: Nausea And Vomiting Potassium Chloride (Klor-Con) 40 meq PO DAILYP PRN PRN Reason: K+ < 3.5 Senna/Docusate Sodium (Senna Plus Tablet) 1 tab PO HS [facility] Last Admin: 03/20/18 21:06 Dose: 1 tab Simvastatin (Zocor) 40 mg PO DAILY [facility] Last Admin: 03/21/18 08:54 Dose: 40 mg Sodium Chloride (Saline Flush) 10 ml IV Q8 [facility] Last Admin: 03/21/18 04:21 Dose: Not Given Trazodone HCl (Desyrel) 50 mg PO HSP PRN PRN Reason: Insomnia Medical - PN: A/P - Time Spent With Patient Total time spent is greater than 50% in coordination of care (as documented) at patient's floor/unit and/or counseling patient: - Narrative A/P Narrative: A/P UTI- Gram neg bacillus- on IV levfloxacin, await culture and sensitivity reports Pneumonia, Left lung, base, given esophageal issues, likelyi aspirational, iv levofloxacn and flagyl for now, Acute renal failure- stable renal function, creat is 1.6, Weakness/ deconditioning- due to infection, OT/PT rehab esophageal stricture/ on liquid diet at home too Pancytopenia- d/c hep, b12 and folate is normal, will need further workup, will benefit from outpatient hematology evaluation. GERD on ppi DVT hep sq Diet liquid diet Medical - PN: Qual - VTE Deep Vein Thrombosis/Pulmonary Embolism Present on Admission: No
[2018-03-21] MEDS ORDERED: LEVOFLOXACIN 750 MG/150 ML BAG IV ONE (11:30)
[2018-03-21] MEDS: metroNIDAZOLE 500 MG/100 ML BAG IV SCH ×2 (11:59→20:54)
[2018-03-21] MEDS: SENNOSIDES/DOCUSATE SODIUM 1 TAB TABLET PO SCH (20:42)
[2018-03-22] MEDS: IPRATROPIUM/ALBUTEROL 3 ML AMPUL.NEB NEB SCH ×4 (03:42→15:16)
[2018-03-22] MEDS: 0.9 % SODIUM CHLORIDE 10 ML SYRINGE IV SCH ×2 (05:34→13:27)
[2018-03-22] MEDS: metroNIDAZOLE 500 MG/100 ML BAG IV SCH ×2 (05:34→13:26)
[2018-03-22 06:00] LABS: Mean Cell Volume 102.4 fL (80.0-100.0); Mean Corpuscular HGB Conc 33.9 g/dL (31.0-36.0); Mean Corpuscular Hemoglobin 34.7 pg (26.0-34.0); Platelet Count 90 K/mcL (140-440); RBC 2.42 M/mcL (4.00-5.20); Red Cell Distribution Width 14.1 % (11.5-14.5)
[2018-03-22 06:35] LABS: ALT/SGPT 15 U/l (0-40); Albumin 2.7 gm/dL (3.2-5.2); Albumin/Globulin Ratio 0.9 (1.0-2.3); Alkaline Phosphatase 46 U/L (39-117); Bilirubin,Direct < 0.2 mg/dL (0.0-0.3); Blood Urea Nitrogen 40 mg/dl (8-23); Gamma Glutamyl Transpeptidase 9 U/L (5-36); Uric Acid 6.3 mg/dL (2.5-8.0)
[2018-03-22 07:59] LABS: Anisocytosis FEW (NONE SEEN); Eosinophils % (Manual) 3 % (0-7); Lymphocytes % 15 % (15-49); Macrocytosis 1+ (NONE SEEN); Monocytes % (Manual) 5 % (1-12); Ovalocytes FEW (NONE SEEN); Platelet Estimate DECREASED (NORMAL); RBC Morphology ABNORM (NORMAL); Segmented Neutrophils % 77 % (38-78)
[2018-03-22] MEDS: SIMVASTATIN 40 MG TABLET PO SCH (08:53)
[2018-03-22] MEDS: MONTELUKAST 10 MG TABLET PO SCH (08:53)
[2018-03-22] MEDS: MULTIVIT,THER IRON,CA,FA & MIN 1 TABLET PO SCH (08:53)
[2018-03-22] MEDS: LOSARTAN 50 MG TABLET PO SCH (08:53)
[2018-03-22] MEDS: DOCUSATE SODIUM 100 MG CAPSULE PO SCH ×2 (08:53→09:04)
[2018-03-22] MEDS: METOPROLOL TARTRATE 50 MG TABLET PO SCH (08:53)
--- NOTE | 2018-03-22 10:52 | Discharge Summary ---
Medical - DS: Prov Patient information: Note initiated : 03/22/18 at 10:43 am Service Date, if different from initiated Date: [] Patient: Belle Celaya a 87 y/o F admitted on 03/19/18 for cough, weakness. Chief Complaint: [] Date of admission: 03/19/18 22:19 Discharge date: 03/22/18 Primary care physician: Anel Matthews Consults: 03/19/18 Consult to Physician [CONS] Stat Comment: Dr. Haji accepted Pt Consulting Provider: Fadi Haji Reason For Exam: Physician to Consult Discharging clinician: Felecia Mai Medical - DS: Meds - Discharge Medications Prescriptions: Levofloxacin [Levaquin] 500 mg PO Q48H #3 tab metroNIDAZOLE [Metronidazole] 500 mg PO TID #18 tab Active and Home Medications: Home Medications Losartan Potassium [Cozaar] 100 mg PO DAILY 05/27/17 [History Confirmed Last Taken 07/12/17 10:00] Metoprolol Tartrate [Lopressor] 50 mg PO BID 05/27/17 [History Confirmed Last Taken 07/12/17 10:00] Montelukast Sodium [Singulair] 10 mg PO DAILY 05/27/17 [History Confirmed Last Taken 07/12/17 10:00] Oxybutynin Chloride [Ditropan] 5 mg PO BID 05/27/17 [History Confirmed 03/19/18 Last Taken 07/12/17 10:00] Simvastatin [Zocor] 40 mg PO DAILY 05/27/17 [History Confirmed 03/19/18 Last Taken 07/12/17 10:00] Medical - DS: Hosp Hospital course: Ms. Celaya is a 87 year old F with a history of hypertension/hyperlipidemia who lives with her daughter and presented to the hospital with worsening weakness that evolved over the last 1 week. Patient denies any sick contacts. She endorses to cough, productive sputum along with progressive fatigue, malaise lethargy and shaking chills. She however denies shortness of breath. With increasing concerns family brought her to [place] ER Patient workup was significant for pyuria on urine dip/tachycardia and early sepsis along with KELLY-creatinine 1.8. Patient was started on crystalloids along with antibiotics after cultures were drawn. Hospitalist service was consulted At the time of evaluation patient is accompanied with her son-in-law Pernell. She was able to answer most of the questions. She denies any concerns or distress. She is feeling a lot better. She is usually on liquid diet due to esophageal strictures. She denies recent changes in medications, also denies associated chest pain, nausea, dysuria or diarrhea. 03/20-patient had a rough night with persistent cough and productive sputum. Repeat chest x-ray in 24 hours. Continue empiric antibiotic and de-escalate based on cultures. Continue aggressive physical therapy/nutrition support/ liquid diet in light of esophageal stricture. 03/21 Pt seen examined, no acute overnight issues, pt this AM feeling chills and cold , but no fever noted no cough, no other symptoms hb, wbc and platelets low, chronically so, repeat b12, folate is normal she is on a liquid diet, for her esophageal stricture. urine culture is GNB, await sensitivities cxr repeat is neg not on ABX ? did receive rocephin and levo in ER XRay chest shows pna, start on levofloxacin and flagyl to cover for uti and pna (pna likely aspirational) 03/22 Patient seen examined, feels much better, labs stable, urine cultures is growing ecoli which is simon sensitive The patient also has pneumonia which is mild, she is being treated with levofloxacin and flagyl (for aspirational pneumonia) The patient is on a liquid diet,which she takes at home. He labs show pancytopenia, which needs further evaluation as outpatient, will refer to Hematology. Discharge diagnosis: Pneumonia, UTI - Time Spent with Patient Total time spent providing and/or coordinating discharge services: Greater than 30 minutes Medical - DS: Exam - Constitutional Vitals: Vital Signs Temp Pulse Pulse Resp BP Pulse Ox 03/22/18 08:52 138/68 03/22/18 07:43 87 16 03/22/18 07:39 97 03/22/18 06:53 97.6 F 14 101/60 96 03/22/18 04:00 98.2 F 84 18 137/59 96 03/21/18 22:54 97.9 F 80 16 149/75 93 03/21/18 22:45 79 18 03/21/18 19:48 98.2 F 98 H 18 135/72 97 03/21/18 18:45 75 18 03/21/18 15:30 98.2 F 88 20 132/63 96 03/21/18 15:10 94 H 18 03/21/18 11:48 75 18 03/21/18 11:17 98.7 F 14 106/56 96 Intake and Output 03/21/18 03/22/18 03/22/18 21:59 05:59 13:59 Intake Total 100 / 100 440 / 440 Output Total Balance 97 / 97 437 / 437 -1 Intake: IV 100 / 100 100 / 100 Oral 340 / 340 Output: # of times incontinent of urine Other: Stool Size Small Stool Color Brown Stool Consistency Formed # of times incontinent of 1 Bowels Weight 83 lb Additional comments: Constitutional; Afebrile, cooperative, alert, not in distress. thin frail lady Respiratory system: Air Entry equal on both sides, No crackles or wheezing, no rhonchi. CVS- Rate rhythm regular, S1,S2 heard, no gallop, no rub. 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 Medical - DS: Data Labs on day of discharge: Labs from last 24 hours 03/22/18 03/22/18 04:28 04:28 WBC 3.2 L RBC 2.42 L Hgb 8.4 L Hct 24.8 L MCV 102.4 H MCH 34.7 H MCHC 33.9 RDW 14.1 Plt Count 90 L MPV 9.3 Total Counted 100 Seg Neutrophils % 77 Band Neutrophils % Not Reportable Lymphocytes % 15 Monocytes % (Manual) 5 Eosinophils % (Manual) 3 Platelet Estimate Decreased RBC Morphology Abnorm A Polychromasia Few A Anisocytosis Few A Macrocytosis 1+ A Ovalocytes Few A Sodium 142 Potassium 3.7 Chloride 111 H Carbon Dioxide 19 L Anion Gap 12.0 BUN 40 H Creatinine 1.4 H GFR Calculation 34 Glucose 114 H Uric Acid 6.3 Calcium 8.6 Phosphorus 2.2 L Magnesium 1.8 Total Bilirubin 0.3 Direct Bilirubin < 0.2 GGT 9 AST 28 ALT 15 Alkaline Phosphatase 46 Lactate Dehydrogenase 153 Total Protein 5.8 L Albumin 2.7 L Globulin 3.1 Albumin/Globulin Ratio 0.9 L Triglycerides 27 Preliminary micro results at discharge 03/19/18 19:17 Blood Culture - Preliminary Blood 03/19/18 19:22 Blood Culture - Preliminary Blood Medical - DS: A/P - Patient/Caregiver Discharge Instructions Activity: as per physical therapy, increase activity as tolerated Diet: Full Liquid Additional Instructions: Follow up with PCP in 1 week Take levofloxacin 500mg every other day, for total of 3 doses. Take metronidazole 500mg three times a day for 6 days Please follow up with Hematology for further evaluation of low blood counts in 2 -4 weeks Please have all meals upright, Go to the ER if fever, chills worsening symptoms. or any other acute concern. - Follow up Plan Follow up with: Anel Matthews ARNP [Primary Care Provider] - eRji Beth MD [Physician] - Disposition: Home Health Service Prognosis: Fair Rehab Potential: Fair I certify that the patient requires SNF services: No Overall status at discharge: patient is progressing back to baseline Medical - DS: Qual - VTE Deep Vein Thrombosis/Pulmonary Embolism Present on Admission: No
[2018-03-22] MEDS ORDERED: IPRATROPIUM/ALBUTEROL 3 ML AMPUL.NEB NEB PRN (15:03)
[2018-03-23] MEDS ORDERED: LEVOFLOXACIN 500 MG/100 ML BAG IV SCH (09:00)
== END 2018-03-22 16:50 | disposition home health service (06) | DRG 193 ==
LOC: ED 18:52 → MEDSUR 22:19
PROVIDERS: ADMIT Internal Medicine; ATTEND Internal Medicine
CPT/HCPCS: 80047; 84145; 85014; 97161; 97167; A6213; J0696; J1644; J1956; J7030; J7060; J7620; J7620-GY

== ENCOUNTER 2019-08-20 17:54 | Inpatient (IN) ==
--- NOTE | 2019-08-20 18:14 | Emergency Department Note ---
Weakness HPI - General Chief complaint: Weakness Stated complaint: chest congestion, weakness Time Seen by Provider: 08/20/19 17:59 Source: patient, family Mode of arrival: wheelchair Limitations: no limitations - History of Present Illness HPI Narrative: Patient is an 88-year-old female that comes into the emergency Department today by private vehicle. Her family reports that she has had some increased weakness over the last several days as well as chest congestion and phlegm. She reports coughing a couple of times, but denies any persistant cough. Patient denies any shortness of breath, chest pain, or difficulty breathing. She denies any fevers or chills. She denies abdominal pains, nausea, or vomiting. She denies any melena or hematochezia. She denies any dysuria, urinary frequency, or urgency. The patient has not had any headaches, dizziness, paresthesias, or confusion. She denies any sore throat, ear pain, or rhinitis. - Related Data Home Medications Medication Instructions Recorded Confirmed Losartan Potassium [Cozaar] 100 mg PO DAILY 05/27/17 08/20/19 Metoprolol Tartrate [Lopressor] 25 mg PO BID 05/27/17 08/20/19 Oxybutynin Chloride [Ditropan] 5 mg PO BID 05/27/17 08/20/19 Simvastatin [Zocor] 40 mg PO DAILY 05/27/17 08/20/19 Previous Rx's Medication Instructions Recorded Ibuprofen [Motrin] 400 mg PO TID #10 tab 02/06/19 Allergies Allergy/AdvReac Type Severity Reaction Status Date / Time Penicillins Allergy Severe Anaphylaxis Verified 08/20/19 17:56 Review of Systems All systems ED: reviewed and negative except as stated. Past Medical History - Past Medical History Medical history: Reports: GERD, hyperlipidemia, hypertension. Denies: CHF Psychiatric history: Reports: no psych history [employer] MARKETING history: Reports: non-contributory Surgical history ED: Reports: non-contributory - Social History smoking status: Never smoker Alcohol use: Reports: None Drug use: Reports: none Physical Exam Limitations: no limitations General appearance: alert, in no apparent distress Head: atraumatic, normocephalic Eye: Present: normal appearance, PERRL, EOMI. Absent: scleral icterus, conjunctival injection ENT: Present: normal oropharynx, mucous membranes moist Neck: Present: normal inspection, full ROM, trachea midline. Absent: lymphadenopathy, thyromegaly Chest: Present: symmetric chest wall rise Respiratory: Present: normal lung sounds bilaterally. Absent: respiratory distress, rales/crackles, wheezes, stridor, accessory muscle use, prolonged expiratory phase Cardiovascular: Present: regular rate, normal rhythm, +S1, +S2. Absent: systolic murmur, diastolic murmur Abdominal: Present: soft, normal bowel sounds. Absent: distention, tenderness, guarding, rebound, rigidity, organomegaly, mass Rectal: Present: normal inspection, normal rectal tone, heme (+) stool. Absent: bloody stool, fecal impaction, mass Extremities: Present: normal inspection, full ROM, normal capillary refill, pedal edema (1+). Absent: tenderness, cyanosis, clubbing Back: Present: normal inspection. Absent: CVA tenderness (R), CVA tenderness (L) Neurological: Present: alert, oriented X3, CN II-XII intact. Absent: motor sensory deficit Psychiatric: Present: normal affect, normal mood Skin: Present: warm, dry, normal color Course Course Narrative: 1929 - Spoke with Dr. Emmanuel at 1929, and the patient has positive occult stools. Dr. Emmanuel will consult with patient for EGD and colonoscopy likely on Thursday. Dr. Emmanuel would like the hospitalist to admit patient to [facility] for blood transfusion and then he will consult. I have ordered type and cross and 2 units packed red blood cells. 1944 - spoke with Dr. Hilario who is on today for the hospitalist. Dr. Hilario will admit the patient to PCU. Currently awaiting type and cross and the 2 units of packed red blood cells. Patient is resting comfortably at this time. She has blood pressure 134/50 and pulse of 61. Oxygen saturation 100% on room air. I have ordered 40 mg protonix to be given IV. Vital Signs Temperature 99.3 F H 08/20/19 17:54 Pulse Rate 68 08/20/19 17:54 Respiratory Rate 20 08/20/19 17:54 Blood Pressure 116/61 08/20/19 17:54 Pulse Oximetry (%) 100 08/20/19 17:54 Temperature 99.3 F H 08/20/19 17:54 Pulse Rate 61 08/20/19 19:31 Respiratory Rate 20 08/20/19 17:54 Blood Pressure 134/50 08/20/19 19:31 Pulse Oximetry (%) 100 08/20/19 19:31 Weakness - MDM Narrative Medical decision making narrative: Patient has an H&H of 4.7 and 15.5. Positive occult stool test. Patient will be admitted for GI bleed and anemia. 2 units packed red blood cells of been ordered with type and cross. Dr. Emmanuel will consult the patient and plan on EGD and colonoscopy. She will be admitted to the PCU here at [facility] to Dr. Hilario. Patient had also received 500 mL of normal saline and 40 mg of Protonix IV here in the emergency department. Patient's pulse 68 and blood pressure 116/61. Oxygen saturation 100% on room air. Chest x-ray today to my review appears to be a normal chest x-ray. This will be read by radiologist. Urine dipstick today is normal. - Lab Data Result diagrams: 08/20/19 18:28 08/20/19 18:28 Lab Results 08/20/19 08/20/19 Range/Units 18:28 18:28 WBC 3.9 L (4.50-11.00) K/mcL RBC 1.41 L (3.59-5.38) M/mcL Hgb 4.7 L* (11.2-15.7) g/dL Hct 15.5 L* (34.1-44.9) % MCV 109.9 H (80.0-100.0) fL MCH 33.3 (26.0-34.0) pg MCHC 30.3 L (31.0-36.0) g/dL RDW 17.1 H (11.5-14.5) % Plt Count 89 L (140-440) K/mcL MPV 12.9 H (7.4-10.4) fL Gran % 65.9 (38.0-78.0) % Lymph % (Auto) 22.6 (15.5-49.0) % [place] % (Auto) 8.4 (1.0-12.0) % Eos % (Auto) 3.1 (0.0-7.0) % Baso % (Auto) 0 (0.0-2.0) % Gran # 2.59 (1.80-8.00) K/mcL Lymph # (Auto) 0.89 L (1.50-4.80) K/mcL [place] # (Auto) 0.33 (0.10-0.90) K/mcL Eos # (Auto) 0.12 (0.00-0.70) K/mcL Baso # (Auto) 0 (0.00-0.30) K/mcL Sodium 140 (133-145) mmol/L Potassium 4.7 (3.3-5.1) mmol/L Chloride 110 H (96-108) mmol/L Carbon Dioxide 17 L (22-30) mmol/L Anion Gap 13.0 (8-16) BUN 93 H (8-23) mg/dl Creatinine 1.7 H (0.6-1.1) mg/dl GFR Calculation 27 Glucose 117 H (70-105) mg/dL Calcium 8.9 (8.6-10.4) mg/dl Total Bilirubin 0.3 (0.0-1.0) mg/dL AST 31 (0-37) U/l ALT 20 (0-40) U/l Alkaline Phosphatase 41 (39-117) U/L NT-Pro-B Natriuret Pep 3302.0 H (0-450) pg/ml Total Protein 5.7 L (5.9-8.4) gm/dL Albumin 2.7 L (3.2-5.2) gm/dL Globulin 3.0 (2.2-3.7) gm/dL Albumin/Globulin Ratio 0.9 L (1.0-2.3) Disposition Pt seen by FORM WORKER/PA only: Yes Clinical Impression: Anemia, GI bleed Disposition: [facility]fer As [facility]pt ([facility] Condition: Fair Referrals: Anel Matthews ARNP [Primary Care Provider] -
[2019-08-20] MEDS ORDERED: 0.9 % SODIUM CHLORIDE 500 ML IV ONE (18:33)
[2019-08-20 19:16] LABS: Basophils # (Auto) 0 K/mcL (0.00-0.30); Basophils % (Auto) 0 % (0.0-2.0); Eosinophils # (Auto) 0.12 K/mcL (0.00-0.70); Eosinophils % (Auto) 3.1 % (0.0-7.0); Granulocytes % (Auto) 65.9 % (38.0-78.0); Hematocrit 15.5 % (34.1-44.9); Hemoglobin 4.7 g/dL (11.2-15.7); Lymphocytes # (Auto) 0.89 K/mcL (1.50-4.80); Lymphocytes % (Auto) 22.6 % (15.5-49.0); Mean Cell Volume 109.9 fL (80.0-100.0); Mean Corpuscular HGB Conc 30.3 g/dL (31.0-36.0); Mean Platelet Volume 12.9 fL (7.4-10.4); Monocytes # (Auto) 0.33 K/mcL (0.10-0.90); Monocytes % (Auto) 8.4 % (1.0-12.0); Platelet Count 89 K/mcL (140-440); RBC 1.41 M/mcL (3.59-5.38); Red Cell Distribution Width 17.1 % (11.5-14.5); WBC 3.9 K/mcL (4.50-11.00)
[2019-08-20] MEDS ORDERED: 0.9 % SODIUM CHLORIDE 250 ML IV SCH ×2 (19:30→21:48)
[2019-08-20 19:35] LABS: ALT/SGPT 20 U/l (0-40); AST/SGOT 31 U/l (0-37); Albumin 2.7 gm/dL (3.2-5.2); Albumin/Globulin Ratio 0.9 (1.0-2.3); Alkaline Phosphatase 41 U/L (39-117); Bilirubin,Total 0.3 mg/dL (0.0-1.0); Blood Urea Nitrogen 93 mg/dl (8-23); Calcium 8.9 mg/dl (8.6-10.4); Carbon Dioxide 17 mmol/L (22-30); Glomerular Filtration Rate 27; Glucose 117 mg/dL (70-105)
[2019-08-20 19:36] LABS: Chloride 110 mmol/L (96-108)
[2019-08-20] MEDS ORDERED: PANTOPRAZOLE 40 MG VIAL IV ONE (19:42)
[2019-08-20] MEDS ORDERED: METOCLOPRAMIDE 10 MG/2 ML VIAL IV PRN ×2 (21:35→21:48)
--- NOTE | 2019-08-20 21:50 | Internal Med History&Physical ---
Medical - H&P: HPI Patient information: Note initiated : 08/20/19 at 9:41 pm Service Date, if different from initiated Date: [] Patient: Belle Celaya a 88 y/o F admitted on for chest congestion, weakness. Chief Complaint: [GI bleeding] History of present illness: Ms. Celaya is a 88 year old F with a hx of chronic amenia, CKD, and HTN who was brought to the ER due to generalized weakness x days. Pt is a poor historian and some information is obtained from ER chart. As per family, pt has been feeling tired for days. She also complains of chest congestion with mild cough and minimal amount of sputum. But she denies cough, headache, dizziness, cheat pain, sob, abd pain, n/v/d, dysuria, hematemesis, melena or hematochezia. In the ER, her HB was found to be 4.7. Two units of pRBC were ordered. Dr. Emmanuel was consulted, who would like to let hospitalist admit her and he will scope pt on Thursday. When I saw pt in the ER, other than the symptoms mentioned above, pt was fine. Denies recent travel or sick contact. Review of systems: Positive for generalized weakness and fatigue. All other systems were reviewed and are negative. Medical - H&P: PMH Family history: reviewed and not pertinent (Father had heart attack.) Have you smoked in the last 12 months: No Drug use: none Alcohol use: none Medical - H&P: Meds Home Medications Medication Instructions Recorded Confirmed Type Losartan Potassium [Cozaar] 100 mg PO DAILY 05/27/17 08/20/19 History Metoprolol Tartrate [Lopressor] 25 mg PO BID 05/27/17 08/20/19 History Oxybutynin Chloride [Ditropan] 5 mg PO BID 05/27/17 08/20/19 History Simvastatin [Zocor] 40 mg PO DAILY 05/27/17 08/20/19 History Ibuprofen [Motrin] 400 mg PO TID #10 tab 02/06/19 08/20/19 Rx Allergies Allergy/AdvReac Type Severity Reaction Status Date / Time Penicillins Allergy Severe Anaphylaxis Verified 08/20/19 17:56 Medical - H&P: Exam - Constitutional Vitals: Temp Pulse Resp BP Pulse Ox 99.3 F H 70 20 99/52 96 08/20/19 17:54 08/20/19 20:45 08/20/19 17:54 08/20/19 20:31 08/20/19 20:45 - Other Additional findings: General - thin, pale, no acute distress Eyes - PERRLA, EOM intact ENT no rhinorrhea, no noticeable or palpable swelling, no redness or rash around throat or on face Neck supple, no JVD, no thyromegaly Respiratory: Lungs -clear, no wheezing or crackles. Cardiovascular - RRR no m/r/g, GI - Normal bowel sounds, no distended, soft. Extremeties - Pitting edema+ in both legs, no cyanosis or clubbing Hemo/lymphatic/immune no lymphadenopathy Neurological Alert and oriented x 3, no focal neurological deficits. Psychiatry flat affect Medical - H&P: Reslt - Labs CBC & Chem 7: 08/20/19 18:28 08/20/19 18:28 Labs: Short CBC 08/20/19 Range/Units 18:28 WBC 3.9 L (4.50-11.00) K/mcL Hgb 4.7 L* (11.2-15.7) g/dL Hct 15.5 L* (34.1-44.9) % Plt Count 89 L (140-440) K/mcL BMP 08/20/19 18:28 Sodium 140 Potassium 4.7 Chloride 110 H Carbon Dioxide 17 L BUN 93 H Creatinine 1.7 H Glucose 117 H Calcium 8.9 Liver Function 08/20/19 Range/Units 18:28 Total Bilirubin 0.3 (0.0-1.0) mg/dL AST 31 (0-37) U/l ALT 20 (0-40) U/l Alkaline Phosphatase 41 (39-117) U/L Albumin 2.7 L (3.2-5.2) gm/dL Medical - H&P: A/P - Narrative A/P Narrative: Assessment: 1. Anemia, blood loss from GI? hx of chronic anemia K92.2 2. Pancytopenia D61.818 3. Generalized weakness R53.1 3. CKD, stage 4, creatinine 1.1 on 07/18/2017, creatinine has been around 1.6 since 11/09/2017 N18.4 4. CHF? BNP 3302 I50.9 5. HTN Plan: 1. Pt has hx of chronic anemia. Hb 4.7 Denies active bleeding Guaiac positive in the ER GS Dr. Emmanuel was consulted. He will probably scope pt on Thursday Pantoprazole 40mg IV BID Clear liquid Two units of pRBC were ordered in the ER. NS 500ml was given in the ER. Her BNP was elevated. I will not order more blood or fluid for her now. monitor in PCU oxgyen 2. for pancytopenia, etiologies unknown Retic count (but pt has bleeding. It may not be good to represent her condition) Repeat CBC in am 3. for weakness, could be due to severe anemia PT/OT 4. Avoid nephrotoxic meds intake and output repeat renal function in am 5. BNP 3302 echo intake and output weight 6. BP is not high. Losartan is on hold monitor BP 7. DVT prophylaxis: SCD. NO pharmacological DVT prophylaxis due to bleeding 8. Code status: full
[2019-08-20] MEDS ORDERED: 0.9 % SODIUM CHLORIDE 10 ML SYRINGE IV SCH (22:00)
--- NOTE | 2019-08-20 22:07 | Event Note ---
Advanced Care Planning Documents: Parties in Attendance: Patient Decisional Capacity: Yes POLST form completed: not I explained the process regarding CPR, defibrillation, shock, and intubation to the patient. She agreed with cpr and intubation.
[2019-08-20] MEDS: 0.9 % SODIUM CHLORIDE 10 ML SYRINGE IV SCH (22:08)
[2019-08-20 22:20] LABS: INR 1.2 (0.9-1.1); Prothrombin Time 15.3 sec (11.9-14.5)
[2019-08-21 01:14] LABS: Hemoglobin A1C 4.7 % HGB (4.0-6.0)
[2019-08-21] MEDS: 0.9 % SODIUM CHLORIDE 10 ML SYRINGE IV SCH ×3 (05:25→20:56)
[2019-08-21 06:18] LABS: Basophils # (Auto) 0 K/mcL (0.00-0.30); Basophils % (Auto) 0 % (0.0-2.0); Eosinophils # (Auto) 0.17 K/mcL (0.00-0.70); Eosinophils % (Auto) 4.6 % (0.0-7.0); Granulocytes % (Auto) 52.7 % (38.0-78.0); Hematocrit 23.7 % (34.1-44.9); Hemoglobin 7.8 g/dL (11.2-15.7); Lymphocytes # (Auto) 1.24 K/mcL (1.50-4.80); Lymphocytes % (Auto) 33.5 % (15.5-49.0); Mean Cell Volume 96.7 fL (80.0-100.0); Mean Corpuscular HGB Conc 32.9 g/dL (31.0-36.0); Mean Platelet Volume 12.4 fL (7.4-10.4); Monocytes # (Auto) 0.34 K/mcL (0.10-0.90); Monocytes % (Auto) 9.2 % (1.0-12.0); Platelet Count 65 K/mcL (140-440); RBC 2.45 M/mcL (3.59-5.38); Red Cell Distribution Width 17.7 % (11.5-14.5); WBC 3.7 K/mcL (4.50-11.00)
[2019-08-21 06:21] LABS: Retic Absolute 0.09 M/mcL (0.02-0.10)
[2019-08-21 06:33] LABS: ALT/SGPT 17 U/l (0-40); AST/SGOT 23 U/l (0-37); Albumin 2.4 gm/dL (3.2-5.2); Alkaline Phosphatase 36 U/L (39-117); Bilirubin,Total 1.4 mg/dL (0.0-1.0); Blood Urea Nitrogen 95 mg/dl (8-23); Calcium 8.4 mg/dl (8.6-10.4); Carbon Dioxide 18 mmol/L (22-30); Globulin 2.5 gm/dL (2.2-3.7); Glomerular Filtration Rate 29; Glucose 87 mg/dL (70-105)
[2019-08-21 06:48] LABS: Chloride 113 mmol/L (96-108)
[2019-08-21] MEDS ORDERED: PANTOPRAZOLE 40 MG VIAL IV SCH (07:30)
[2019-08-21] MEDS: PANTOPRAZOLE 40 MG VIAL IV SCH ×2 (08:02→17:24)
--- NOTE | 2019-08-21 08:50 | XRay Report ---
HISTORY: Cough and congestion FINDINGS: Heart is mild to moderately enlarged. It Has increased in size since 05/26/19. There is no congestive heart failure. There are linear bands of scar tissue in the left lung base which have been present since 02/04/19. No new infiltrate has developed. There is no congestive heart failure or mass. The aorta is tortuous. No adenopathy is detected. 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 Left humeral head is impinged against the acromion and clavicle. IMPRESSION: Worsening cardiomegaly, without congestive heart failure Interpreted and Authenticated by: Luis Madrid 08/21/19
[2019-08-21] MEDS ORDERED: SIMVASTATIN 40 MG TABLET PO SCH ×2 (09:00)
[2019-08-21] MEDS ORDERED: METOPROLOL TARTRATE 50 MG TABLET PO SCH (09:00)
[2019-08-21] MEDS ORDERED: OXYBUTYNIN CHLORIDE 5 MG TABLET PO SCH (09:00)
--- NOTE | 2019-08-21 09:31 | Internal Med Progress Note ---
Medical - PN: Subj Patient information: Note initiated : 08/21/19 at 9:27 am Service Date, if different from initiated Date: [] Patient: Belle Celaya a 88 y/o F admitted on 08/20/19 for chest congestion, weakness. Chief Complaint: [] Interval history: Ms. Celaya is a 88 year old F with a hx of chronic amenia, CKD, and HTN who was brought to the ER due to generalized weakness x days. Pt is a poor historian and some information is obtained from ER chart. As per family, pt has been feeling tired for days. She also complains of chest congestion with mild cough and minimal amount of sputum. But she denies cough, headache, dizziness, cheat pain, sob, abd pain, n/v/d, dysuria, hematemesis, melena or hematochezia. In the ER, her HB was found to be 4.7. Two units of pRBC were ordered. GS Dr. Emmanuel was consulted, who would like to let hospitalist admit her and he will scope pt on Thursday. When I saw pt in the ER, other than the symptoms mentioned above, pt was fine. Denies recent travel or sick contact. 08/20 Today pt Today patient feels much better and stronger. Denies dizziness, chest pain, shortness of breath, headache, nausea or vomiting. Vital signs are stable and acceptable. Hemoglobin 7.8 today. Status post 2 units of PRBC yesterday. Dr. Emmanuel will see patient and scope patient tomorrow Review of systems: Positive for generalized weakness and fatigue. All other systems were reviewed and are negative. - Constitutional Vitals: Vital Signs Temp Pulse Resp BP Pulse Ox 98.9 F 58 L 12 134/50 98 08/21/19 08:00 08/21/19 05:52 08/21/19 08:00 08/21/19 08:00 08/21/19 08:00 Period Temp Pulse Resp BP Sys/Sparks Pulse Ox Last 24 Hr 97.9 F-99.3 F 54-70 12- 99-148/46-71 80-100 Intake and Output 08/20/19 08/21/19 08/21/19 21:59 05:59 13:59 Intake Total 825 445 Output Total 1 1 Balance 825 444 -1 Weight 39.689 kg 39.689 kg Intake & Output: Intake & Output 08/20/19 08/21/19 08/21/19 21:59 05:59 13:59 Intake Total 825 445 Output Total 1 1 Balance 825 444 -1 Weight 39.689 kg 39.689 kg Intake: IV 500 Sodium Chloride 0.9% 500 ml @ 500 Wide Open IV BOLUS ONE Rx#: [id number] Oral 120 Blood Product 325 325 Output: # of times incontinent of urine 1 1 - Additional findings Additional findings: General - thin, pale, no acute distress Eyes - PERRLA, EOM intact ENT no rhinorrhea, no noticeable or palpable swelling, no redness or rash around throat or on face Neck supple, no JVD, no thyromegaly Respiratory: Lungs -clear, no wheezing or crackles. Cardiovascular - RRR no m/r/g, GI - Normal bowel sounds, no distended, soft. Extremeties - Pitting edema+ in both legs, no cyanosis or clubbing Hemo/lymphatic/immune no lymphadenopathy Neurological Alert and oriented x 3, no focal neurological deficits. Psychiatry flat affect Medical - PN: Obj Da - Labs CBC & Chem 7: 08/21/19 04:32 08/21/19 04:32 Labs: Abnormal Lab Results 08/21/19 08/21/19 08/21/19 04:32 04:32 04:32 WBC 3.7 L RBC 2.45 L Hgb 7.8 L Hct 23.7 L MCV MCHC RDW 17.7 H Plt Count 65 L MPV 12.4 H Lymph # (Auto) 1.24 L Percent Retic 3.60 H PT INR Chloride 113 H Carbon Dioxide 18 L BUN 95 H Creatinine 1.6 H Glucose Calcium 8.4 L Total Bilirubin 1.4 H Alkaline Phosphatase 36 L NT-Pro-B Natriuret Pep Total Protein 4.9 L Albumin 2.4 L Albumin/Globulin Ratio 08/20/19 08/20/19 08/20/19 18:28 18:28 18:28 WBC 3.9 L RBC 1.41 L Hgb 4.7 L* Hct 15.5 L* MCV 109.9 H MCHC 30.3 L RDW 17.1 H Plt Count 89 L MPV 12.9 H Lymph # (Auto) 0.89 L Percent Retic PT 15.3 H INR 1.2 H Chloride 110 H Carbon Dioxide 17 L BUN 93 H Creatinine 1.7 H Glucose 117 H Calcium Total Bilirubin Alkaline Phosphatase NT-Pro-B Natriuret Pep 3302.0 H Total Protein 5.7 L Albumin 2.7 L Albumin/Globulin Ratio 0.9 L Meds: Medications Atorvastatin Calcium (Lipitor) 40 mg PO DAILY [facility] Metoclopramide HCl (Reglan) 5 mg IV Q6HP PRN PRN Reason: Nausea And Vomiting Metoprolol Tartrate (Lopressor) 25 mg PO BID [facility] Oxybutynin Chloride (Ditropan) 5 mg PO BID [facility] Pantoprazole Sodium (Protonix) 40 mg IV BIDAC [facility] Last Admin: 08/21/19 08:02 Dose: 40 mg Documented by: Sodium Chloride (Saline Flush) 10 ml IV Q8 [facility] Last Admin: 08/21/19 05:25 Dose: 10 ml Documented by: Medical - PN: A/P - Time Spent With Patient Total time spent is greater than 50% in coordination of care (as documented) at patient's floor/unit and/or counseling patient: - Narrative A/P Narrative: Assessment: 1. Anemia, blood loss from GI? hx of chronic anemia K92.2 2. Pancytopenia D61.818 3. Generalized weakness R53.1 3. CKD, stage 4, creatinine 1.1 on 07/18/2017, creatinine has been around 1.6 since 11/09/2017 N18.4 4. CHF? BNP 3302 I50.9 5. HTN Plan: 1. Pt has hx of chronic anemia. Hb 7.8 today from 4.7 yesterday. Status post 2 units of PRBC on August 20, 2019 Denies active bleeding Guaiac positive in the ER GS Dr. Emmanuel will see patient and scope patient tomorrow Pantoprazole 40mg IV BID Clear liquid Her BNP was elevated. Gentle IV fluid Troponin negative monitor in PCU oxgyen 2. for pancytopenia, etiologies unknown Retic count - 3.6 (but pt has bleeding. It may not be good to represent her condition) Repeat CBC in am 3. for weakness, could be due to severe anemia PT/OT 4. Avoid nephrotoxic meds intake and output repeat renal function in am 5. BNP 3302 echo intake and output weight 6. BP is not high. Losartan is on hold monitor BP 7. DVT prophylaxis: SCD. NO pharmacological DVT prophylaxis due to bleeding 8. Code status: full
[2019-08-21] MEDS: METOPROLOL TARTRATE 25 MG TABLET PO SCH ×2 (09:47→20:56)
[2019-08-21] MEDS: OXYBUTYNIN CHLORIDE 5 MG TABLET PO SCH ×2 (09:47→20:56)
[2019-08-21] MEDS: ATORVASTATIN 40 MG TABLET PO SCH (09:47)
[2019-08-21] MEDS: 0.9 % SODIUM CHLORIDE 1,000 ML IV SCH (09:48)
--- NOTE | 2019-08-21 16:27 | General Surgery Consult Note ---
History of Present Illness Patient information: Note initiated : 08/21/19 at 4:24 pm Service Date, if different from initiated Date: [] Patient: Belle Celaya 88 y/o F admitted on 08/20/19 for chest congestion, weakness. Chief Complaint: [] Reason for consult: other (acute blood loss anemia) Requesting physician: Keyanna Hilario History of present illness: 88-year-old female who was admitted last evening for severe weakness and finding of severe anemia with hemoglobin of 4.7. The patient has a history of chronic anemia which is been evaluated as recently as 06/24/19. 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 Reflux esophagitis, gastritis with bleeding and duodenitis with duodenal stricture. This endoscopy was performed by Dr. BELTRAN.. 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 Her last recorded hemoglobin was 8.8 on 05/26/19. She had a BUN of 53, creatinine at 1.7 at that time. Her hemoglobin on admission was 4.7 and her BUN was 93. There is variable response to whether or not she has had dark STOOLS or melena. The daughter with whom she lives, states that her stool has always been dark, but she has not seen any black stools. She has not seen any fresh blood. The patient takes an aspirin- containing tablet at bedtime, which contains 500 mg of aspirin. She takes this daily. The daughter denies that she is taking ibuprofen, though the chart states that she takes ibuprofen 400 mg 3 times daily. The patient's average rate is between 80 and 85 pounds. She has been restricted to a full liquid diet because of her Zenker's diverticulum and her recurrent episodes of choking. She has been transfused and has tolerated it well. Her present hemoglobin is 7.8. She specifically denies abdominal pain. Review of Systems - Constitutional malaise, weakness, weight loss - Gastrointestinal dysphagia, early satiety, heartburn, loose stools, melena - Musculoskeletal arthralgias, other (diffuse joint pain) - Integumentary no new lesions, no non-healing lesions, no pruritus, no rash - Neurological confusion - Hematologic/Lymphatic no easy bleeding, no easy bruising, no lymphadenopathy Past History Past medical history: Gastroesophageal reflux disease. Chronic presbyesophagus. Chronic duodenitis. Chronic anemia. Acute on chronic renal failure Past social history: Never smoker. Denies alcohol use. Denies drug use Medications and Allergies Home Medications Medication Instructions Recorded Confirmed Type Losartan Potassium [Cozaar] 100 mg PO DAILY 05/27/17 08/21/19 History Metoprolol Tartrate [Lopressor] 25 mg PO BID 05/27/17 08/21/19 History Oxybutynin Chloride [Ditropan] 5 mg PO BID 05/27/17 08/21/19 History Simvastatin [Zocor] 40 mg PO DAILY 05/27/17 08/21/19 History Ibuprofen [Motrin] 400 mg PO TID #10 tab 02/06/19 08/21/19 Rx ASA/Calcium Carb/Mag/Al Hydrox 1 tab PO PRN PRN 08/21/19 08/21/19 History [Mayank Plus 500 mg Caplet] LORazepam [Lorazepam] 0.5 mg PO HSP PRN 08/21/19 08/21/19 History Allergies Allergy/AdvReac Type Severity Reaction Status Date / Time Penicillins Allergy Severe Anaphylaxis Verified 08/20/19 17:56 Exam Temp Pulse Resp BP Pulse Ox 98.2 F 58 L 12 131/47 94 08/21/19 14:00 08/21/19 05:52 08/21/19 14:00 08/21/19 14:00 08/21/19 14:00 - General physical appearance well developed, well nourished, no distress, no pain, cachectic, chronically ill - Eyes PERRL, normal ocular movement - ENT normal pinna, normal nares, normal mucosa, no hearing loss, no congestion - Head Head exam IM: Present: atraumatic, normal inspection, normocephalic - Neck no masses (is 20), no bruits, trachea midline, no lymphadenopathy, no venous distension - Cardiovascular Cardiovascular exam IM: Present: normal rate and rhythm, RRR, +S1, +S2. Absent: JVD, tachycardia - Respiratory normal expansion, normal respiratory effort, clear to auscultation - Abdomen Abdomen: Present: soft, non tender, bowel sounds. Absent: masses, distended Hernia: Present: none - Genitourinary Present: normal external genitalia - Integumentary Present: no rash, no growths, no abnormal pigmentation - Neurologic Present: normal coordination, normal sensation - Musculoskeletal Present: normal posture, other (gait and stance not tested) - Psychiatric Present: oriented to time, oriented to person, oriented to place, speech is normal, memory intact Results - Labs 08/21/19 04:32 08/21/19 04:32 Abnormal lab results 08/20/19 08/20/19 08/20/19 Range/Units 18:28 18:28 18:28 WBC 3.9 L (4.50-11.00) K/mcL RBC 1.41 L (3.59-5.38) M/mcL Hgb 4.7 L* (11.2-15.7) g/dL Hct 15.5 L* (34.1-44.9) % MCV 109.9 H (80.0-100.0) fL MCHC 30.3 L (31.0-36.0) g/dL RDW 17.1 H (11.5-14.5) % Plt Count 89 L (140-440) K/mcL MPV 12.9 H (7.4-10.4) fL Lymph # (Auto) 0.89 L (1.50-4.80) K/mcL Percent Retic (0.5-1.5) % PT 15.3 H (11.9-14.5) sec INR 1.2 H (0.9-1.1) Chloride 110 H (96-108) mmol/L Carbon Dioxide 17 L (22-30) mmol/L BUN 93 H (8-23) mg/dl Creatinine 1.7 H (0.6-1.1) mg/dl Glucose 117 H (70-105) mg/dL Calcium (8.6-10.4) mg/dl Total Bilirubin (0.0-1.0) mg/dL Alkaline Phosphatase (39-117) U/L NT-Pro-B Natriuret Pep 3302.0 H (0-450) pg/ml Total Protein 5.7 L (5.9-8.4) gm/dL Albumin 2.7 L (3.2-5.2) gm/dL Albumin/Globulin Ratio 0.9 L (1.0-2.3) 08/21/19 08/21/19 08/21/19 Range/Units 04:32 04:32 04:32 WBC 3.7 L (4.50-11.00) K/mcL RBC 2.45 L (3.59-5.38) M/mcL Hgb 7.8 L (11.2-15.7) g/dL Hct 23.7 L (34.1-44.9) % MCV (80.0-100.0) fL MCHC (31.0-36.0) g/dL RDW 17.7 H (11.5-14.5) % Plt Count 65 L (140-440) K/mcL MPV 12.4 H (7.4-10.4) fL Lymph # (Auto) 1.24 L (1.50-4.80) K/mcL Percent Retic 3.60 H (0.5-1.5) % PT (11.9-14.5) sec INR (0.9-1.1) Chloride 113 H (96-108) mmol/L Carbon Dioxide 18 L (22-30) mmol/L BUN 95 H (8-23) mg/dl Creatinine 1.6 H (0.6-1.1) mg/dl Glucose (70-105) mg/dL Calcium 8.4 L (8.6-10.4) mg/dl Total Bilirubin 1.4 H (0.0-1.0) mg/dL Alkaline Phosphatase 36 L (39-117) U/L NT-Pro-B Natriuret Pep (0-450) pg/ml Total Protein 4.9 L (5.9-8.4) gm/dL Albumin 2.4 L (3.2-5.2) gm/dL Albumin/Globulin Ratio (1.0-2.3) Diabetes panel 08/20/19 08/20/19 08/21/19 Range/Units 18:28 18:34 04:32 Sodium 140 140 (133-145) mmol/L Potassium 4.7 4.5 (3.3-5.1) mmol/L Chloride 110 H 113 H (96-108) mmol/L Carbon Dioxide 17 L 18 L (22-30) mmol/L BUN 93 H 95 H (8-23) mg/dl Creatinine 1.7 H 1.6 H (0.6-1.1) mg/dl Glucose 117 H 87 (70-105) mg/dL Hemoglobin A1c 4.7 (4.0-6.0) % HGB Calcium 8.9 8.4 L (8.6-10.4) mg/dl AST 31 23 (0-37) U/l ALT 20 17 (0-40) U/l Alkaline Phosphatase 41 36 L (39-117) U/L Total Protein 5.7 L 4.9 L (5.9-8.4) gm/dL Albumin 2.7 L 2.4 L (3.2-5.2) gm/dL Calcium panel 08/20/19 08/21/19 Range/Units 18:28 04:32 Calcium 8.9 8.4 L (8.6-10.4) mg/dl Albumin 2.7 L 2.4 L (3.2-5.2) gm/dL Pituitary panel 08/20/19 08/21/19 Range/Units 18:28 04:32 Sodium 140 140 (133-145) mmol/L Potassium 4.7 4.5 (3.3-5.1) mmol/L Chloride 110 H 113 H (96-108) mmol/L Carbon Dioxide 17 L 18 L (22-30) mmol/L BUN 93 H 95 H (8-23) mg/dl Creatinine 1.7 H 1.6 H (0.6-1.1) mg/dl Glucose 117 H 87 (70-105) mg/dL Calcium 8.9 8.4 L (8.6-10.4) mg/dl Adrenal panel 08/20/19 08/21/19 Range/Units 18:28 04:32 Sodium 140 140 (133-145) mmol/L Potassium 4.7 4.5 (3.3-5.1) mmol/L Chloride 110 H 113 H (96-108) mmol/L Carbon Dioxide 17 L 18 L (22-30) mmol/L BUN 93 H 95 H (8-23) mg/dl Creatinine 1.7 H 1.6 H (0.6-1.1) mg/dl Glucose 117 H 87 (70-105) mg/dL Calcium 8.9 8.4 L (8.6-10.4) mg/dl Total Bilirubin 0.3 1.4 H (0.0-1.0) mg/dL AST 31 23 (0-37) U/l ALT 20 17 (0-40) U/l Alkaline Phosphatase 41 36 L (39-117) U/L Total Protein 5.7 L 4.9 L (5.9-8.4) gm/dL Albumin 2.7 L 2.4 L (3.2-5.2) gm/dL All other labs normal. Assessment and Plan (1) Acute blood loss anemia Patient and daughter COUNSELED for upper endoscopy. This will be performed tomorrow Status: Acute (2) Acute on chronic kidney failure Status: Acute (3) CKD (chronic kidney disease), stage III Status: Chronic (4) Hypertension Status: Chronic (5) Dehydration, moderate Status: Acute (6) GI bleed Status: Acute Qualifiers: GI bleed type/associated pathology: gastroduodenitis Qualified Code(s): K29.91 - Gastroduodenitis, unspecified, with bleeding
[2019-08-22] MEDS: 0.9 % SODIUM CHLORIDE 1,000 ML IV SCH ×2 (05:08→17:33)
[2019-08-22] MEDS: 0.9 % SODIUM CHLORIDE 10 ML SYRINGE IV SCH ×3 (05:08→21:57)
[2019-08-22 06:35] LABS: Basophils # (Auto) 0 K/mcL (0.00-0.30); Basophils % (Auto) 0 % (0.0-2.0); Eosinophils # (Auto) 0.19 K/mcL (0.00-0.70); Eosinophils % (Auto) 3.9 % (0.0-7.0); Granulocytes % (Auto) 64.4 % (38.0-78.0); Hematocrit 23.1 % (34.1-44.9); Hemoglobin 7.4 g/dL (11.2-15.7); Lymphocytes # (Auto) 1.16 K/mcL (1.50-4.80); Lymphocytes % (Auto) 23.6 % (15.5-49.0); Mean Platelet Volume 12.2 fL (7.4-10.4); Monocytes % (Auto) 8.1 % (1.0-12.0); Platelet Count 73 K/mcL (140-440); RBC 2.31 M/mcL (3.59-5.38); Red Cell Distribution Width 18.3 % (11.5-14.5); WBC 4.9 K/mcL (4.50-11.00)
[2019-08-22 06:39] LABS: ALT/SGPT 14 U/l (0-40); AST/SGOT 22 U/l (0-37); Albumin 2.3 gm/dL (3.2-5.2); Albumin/Globulin Ratio 0.9 (1.0-2.3); Alkaline Phosphatase 34 U/L (39-117); Bilirubin,Total 0.7 mg/dL (0.0-1.0); Blood Urea Nitrogen 92 mg/dl (8-23); Calcium 8.1 mg/dl (8.6-10.4); Carbon Dioxide 17 mmol/L (22-30); Chloride 114 mmol/L (96-108); Globulin 2.5 gm/dL (2.2-3.7); Glomerular Filtration Rate 31; Glucose 83 mg/dL (70-105)
[2019-08-22] MEDS: PANTOPRAZOLE 40 MG VIAL IV SCH (07:15)
[2019-08-22] MEDS ORDERED: METOPROLOL TARTRATE 25 MG TABLET PO SCH ×2 (09:00→21:00)
[2019-08-22] MEDS: ATORVASTATIN 40 MG TABLET PO SCH (09:08)
[2019-08-22] MEDS: OXYBUTYNIN CHLORIDE 5 MG TABLET PO SCH ×2 (09:08→21:56)
--- NOTE | 2019-08-22 09:22 | Internal Med Progress Note ---
Medical - PN: Subj Patient information: Note initiated : 08/22/19 at 9:16 am Service Date, if different from initiated Date: [] Patient: Belle Celaya a 88 y/o F admitted on 08/20/19 for chest congestion, weakness. Chief Complaint: [] Interval history: Ms. Celaya is a 88 year old F with a hx of chronic amenia, CKD, and HTN who was brought to the ER due to generalized weakness x days. Pt is a poor historian and some information is obtained from ER chart. As per family, pt has been feeling tired for days. She also complains of chest congestion with mild cough and minimal amount of sputum. But she denies cough, headache, dizziness, cheat pain, sob, abd pain, n/v/d, dysuria, hematemesis, melena or hematochezia. In the ER, her HB was found to be 4.7. Two units of pRBC were ordered. GS Dr. Emmanuel was consulted, who would like to let hospitalist admit her and he will scope pt on Thursday. When I saw pt in the ER, other than the symptoms mentioned above, pt was fine. Denies recent travel or sick contact. 08/20 Today pt Today patient feels much better and stronger. Denies dizziness, chest pain, shortness of breath, headache, nausea or vomiting. Vital signs are stable and acceptable. Hemoglobin 7.8 today. Status post 2 units of PRBC yesterday. Dr. Emmanuel will see patient and scope patient tomorrow 08/21-patient doing well. No overnight events. Persistent dysphagia. Currently n.p.o. Bradycardic in mid to high 30s. Beta-gisell dose reduced by half. Hemoglobin 7.4 status post units PRBC. No further bloody bowels. Upper endoscopy today. Continue PPI. Recommend avoidance of NSAIDs. - Constitutional Vitals: Vital Signs Temp Pulse Resp BP Pulse Ox 98.0 F 64 16 156/43 97 08/22/19 08:00 08/22/19 08:00 08/22/19 08:00 08/22/19 08:00 08/22/19 08:00 Period Temp Pulse Resp BP Sys/Sparks Pulse Ox Last 24 Hr 98.0 F-99.1 F 44-73 12-18 124-156/43-71 94-100 Intake and Output 08/21/19 08/22/19 08/22/19 21:59 05:59 13:59 Intake Total 967 Output Total 4 2 Balance -4 965 Weight 91 lb Intake & Output: Intake & Output 08/21/19 08/22/19 08/22/19 21:59 05:59 13:59 Intake Total 967 Output Total 4 2 Balance -4 965 Weight 91 lb Intake: IV 967 Sodium Chloride 0.9% 1,000 ml @ 967 50 mls/hr IV .Q20H [facility] Rx#: [id number] Output: # of times incontinent of urine 4 2 Other: Meal Dinner Percent of Meal Consumed Refused General appearance: no acute distress Exam: Mild pallor Fatigue but no anxiety Telemetry bradycardia in mid 30s Nonlabored breathing Medical - PN: Obj Da - Labs CBC & Chem 7: 08/22/19 04:40 08/22/19 04:40 Labs: Abnormal Lab Results 08/22/19 08/22/19 08/21/19 04:40 04:40 04:32 WBC RBC 2.31 L Hgb 7.4 L Hct 23.1 L MCV MCHC RDW 18.3 H Plt Count 73 L MPV 12.2 H Lymph # (Auto) 1.16 L Percent Retic 3.60 H PT INR Chloride 114 H Carbon Dioxide 17 L BUN 92 H Creatinine 1.5 H Glucose Calcium 8.1 L Total Bilirubin Alkaline Phosphatase 34 L NT-Pro-B Natriuret Pep Total Protein 4.8 L Albumin 2.3 L Albumin/Globulin Ratio 0.9 L 08/21/19 08/21/19 08/20/19 04:32 04:32 18:28 WBC 3.7 L RBC 2.45 L Hgb 7.8 L Hct 23.7 L MCV MCHC RDW 17.7 H Plt Count 65 L MPV 12.4 H Lymph # (Auto) 1.24 L Percent Retic PT 15.3 H INR 1.2 H Chloride 113 H Carbon Dioxide 18 L BUN 95 H Creatinine 1.6 H Glucose Calcium 8.4 L Total Bilirubin 1.4 H Alkaline Phosphatase 36 L NT-Pro-B Natriuret Pep Total Protein 4.9 L Albumin 2.4 L Albumin/Globulin Ratio 08/20/19 08/20/19 18:28 18:28 WBC 3.9 L RBC 1.41 L Hgb 4.7 L* Hct 15.5 L* MCV 109.9 H MCHC 30.3 L RDW 17.1 H Plt Count 89 L MPV 12.9 H Lymph # (Auto) 0.89 L Percent Retic PT INR Chloride 110 H Carbon Dioxide 17 L BUN 93 H Creatinine 1.7 H Glucose 117 H Calcium Total Bilirubin Alkaline Phosphatase NT-Pro-B Natriuret Pep 3302.0 H Total Protein 5.7 L Albumin 2.7 L Albumin/Globulin Ratio 0.9 L Meds: Medications Atorvastatin Calcium (Lipitor) 40 mg PO DAILY [facility] Last Admin: 08/22/19 09:08 Dose: 40 mg Documented by: Sodium Chloride (Sodium Chloride 0.9%) 1,000 mls @ 50 mls/hr IV .Q20H [facility] Last Admin: 08/22/19 05:08 Dose: 50 mls/hr Documented by: Metoclopramide HCl (Reglan) 5 mg IV Q6HP PRN PRN Reason: Nausea And Vomiting Metoprolol Tartrate (Lopressor) 12.5 mg PO BID [facility] Last Admin: 08/22/19 09:08 Dose: 12.5 mg Documented by: Oxybutynin Chloride (Ditropan) 5 mg PO BID [facility] Last Admin: 08/22/19 09:08 Dose: 5 mg Documented by: Pantoprazole Sodium (Protonix) 40 mg IV BIDAC [facility] Last Admin: 08/22/19 07:15 Dose: 40 mg Documented by: Sodium Chloride (Saline Flush) 10 ml IV Q8 [facility] Last Admin: 08/22/19 05:08 Dose: 10 ml Documented by: Medical - PN: A/P - Time Spent With Patient Total time spent is greater than 50% in coordination of care (as documented) at patient's floor/unit and/or counseling patient: 25 - 35 minutes - Narrative A/P Narrative: * Acute blood loss anemia likely secondary to NSAID gastropathy. Status post units blood transfusion. On PPI drip. Likely. GI. Endoscopy today. * Bradycardia lower metoprolol dose to 12.5. * Generalized weakness continue PT OT/dietary intervention. * CKD with acute rise in BUN due to upper GI bleed. Clinically improving. * History of hypertension currently stable. Restart losartan once systolic over 140 * Hyperlipidemia continue statin * Full code * Prophylaxis SCDs Plan * Continue PPI * Review postop endoscopy * Check ferritin, if consistent with antigenemia start IV iron infusion * Monitor renal function * Restart antihypertensives once systolics over 140 * Discharge planning * Avoid NSAIDs in future
[2019-08-22] MEDS ORDERED: ATROPINE SULFATE 0.4 MG/ML VIAL IV ONE (14:20)
[2019-08-22] MEDS ORDERED: PROPOFOL 200 MG/20 ML VIAL IV ONE (14:20)
--- NOTE | 2019-08-22 15:05 | Brief Operative Note ---
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
[2019-08-22] MEDS ORDERED: 0.9 % SODIUM CHLORIDE 1,000 ML IV SCH (15:42)
[2019-08-22] MEDS ORDERED: METOCLOPRAMIDE 10 MG/2 ML VIAL IV PRN ×2 (15:42→17:06)
[2019-08-22] MEDS ORDERED: PANTOPRAZOLE 40 MG VIAL IV SCH (17:00)
[2019-08-22] MEDS ORDERED: SUCRALFATE 1 GM/10 ML ORAL.SUSP PO SCH ×2 (18:00)
[2019-08-22] MEDS: SUCRALFATE 1 GM/10 ML ORAL.SUSP PO SCH (19:49)
[2019-08-22] MEDS ORDERED: OXYBUTYNIN CHLORIDE 5 MG TABLET PO SCH (21:00)
[2019-08-22] MEDS: METOPROLOL TARTRATE 25 MG TABLET PO SCH (21:56)
[2019-08-22] MEDS ORDERED: 0.9 % SODIUM CHLORIDE 10 ML SYRINGE IV SCH (22:00)
[2019-08-23] MEDS: SUCRALFATE 1 GM/10 ML ORAL.SUSP PO SCH ×4 (00:08→18:16)
[2019-08-23] MEDS ORDERED: BISACODYL 10 MG SUPP.RECT PR ONE ×2 (02:00→02:04)
[2019-08-23] MEDS: 0.9 % SODIUM CHLORIDE 10 ML SYRINGE IV SCH ×3 (06:00→20:29)
[2019-08-23 06:57] LABS: Basophils # (Auto) 0 K/mcL (0.00-0.30); Basophils % (Auto) 0 % (0.0-2.0); Eosinophils # (Auto) 0.09 K/mcL (0.00-0.70); Eosinophils % (Auto) 1.8 % (0.0-7.0); Granulocytes % (Auto) 73.2 % (38.0-78.0); Hematocrit 20.5 % (34.1-44.9); Hemoglobin 6.4 g/dL (11.2-15.7); Lymphocytes # (Auto) 0.78 K/mcL (1.50-4.80); Lymphocytes % (Auto) 15.7 % (15.5-49.0); Mean Cell Volume 102.5 fL (80.0-100.0); Mean Corpuscular HGB Conc 31.2 g/dL (31.0-36.0); Mean Platelet Volume 12.1 fL (7.4-10.4); Monocytes # (Auto) 0.46 K/mcL (0.10-0.90); Monocytes % (Auto) 9.3 % (1.0-12.0); Platelet Count 79 K/mcL (140-440)
[2019-08-23 07:22] LABS: ALT/SGPT 22 U/l (0-40); AST/SGOT 29 U/l (0-37); Albumin 2.2 gm/dL (3.2-5.2); Albumin/Globulin Ratio 0.9 (1.0-2.3); Alkaline Phosphatase 36 U/L (39-117); Bilirubin,Total 0.6 mg/dL (0.0-1.0); Blood Urea Nitrogen 75 mg/dl (8-23); Calcium 7.9 mg/dl (8.6-10.4); Carbon Dioxide 15 mmol/L (22-30); Globulin 2.5 gm/dL (2.2-3.7); Glomerular Filtration Rate 31; Glucose 111 mg/dL (70-105)
[2019-08-23 07:26] LABS: Chloride 120 mmol/L (96-108)
[2019-08-23] MEDS ORDERED: PANTOPRAZOLE 40 MG VIAL IV SCH (07:30)
[2019-08-23] MEDS ORDERED: 0.9 % SODIUM CHLORIDE 250 ML IV SCH (07:45)
[2019-08-23] MEDS ORDERED: ATORVASTATIN 40 MG TABLET PO SCH (09:00)
[2019-08-23] MEDS: OXYBUTYNIN CHLORIDE 5 MG TABLET PO SCH ×2 (09:25→19:55)
[2019-08-23] MEDS: METOPROLOL TARTRATE 25 MG TABLET PO SCH ×2 (09:25→19:50)
[2019-08-23] MEDS: ATORVASTATIN 40 MG TABLET PO SCH (09:25)
--- NOTE | 2019-08-23 09:27 | Internal Med Progress Note ---
Medical - PN: Subj Patient information: Note initiated : 08/23/19 at 9:23 am Service Date, if different from initiated Date: [] Patient: Belle Celaya a 88 y/o F admitted on 08/20/19 for chest congestion, weakness. Chief Complaint: [] Interval history: Ms. Celaya is a 88 year old F with a hx of chronic amenia, CKD, and HTN who was brought to the ER due to generalized weakness x days. Pt is a poor historian and some information is obtained from ER chart. As per family, pt has been feeling tired for days. She also complains of chest congestion with mild cough and minimal amount of sputum. But she denies cough, headache, dizziness, cheat pain, sob, abd pain, n/v/d, dysuria, hematemesis, melena or hematochezia. In the ER, her HB was found to be 4.7. Two units of pRBC were ordered. GS Dr. Emmanuel was consulted, who would like to let hospitalist admit her and he will scope pt on Thursday. When I saw pt in the ER, other than the symptoms mentioned above, pt was fine. Denies recent travel or sick contact. 08/20 Today pt Today patient feels much better and stronger. Denies dizziness, chest pain, shortness of breath, headache, nausea or vomiting. Vital signs are stable and acceptable. Hemoglobin 7.8 today. Status post 2 units of PRBC yesterday. Dr. Emmanuel will see patient and scope patient tomorrow 08/21-patient doing well. No overnight events. Persistent dysphagia. Currently n.p.o. Bradycardic in mid to high 30s. Beta-gisell dose reduced by half. Hemoglobin 7.4 status post units PRBC. No further bloody bowels. Upper endoscopy today. Continue PPI. Recommend avoidance of NSAIDs. 08/22-patient doing well. Doing his blood transfusion. No further bloody bowels. Status post EGD. Erosive gastritis/colitis. On PPI/Carafate. Advised to refrain from aspirin and Motrin will likely discharge in 24 hours if continues to improve clinically - Constitutional Vitals: Vital Signs Temp Pulse Resp BP Pulse Ox 98.2 F 65 14 98/55 98 08/23/19 08:00 08/23/19 08:00 08/23/19 08:00 08/23/19 08:00 08/23/19 08:00 Period Temp Pulse Resp BP Sys/Sparks Pulse Ox Last 24 Hr 97.2 F-99.2 F 57-78 04-01 98-159/48-71 92-100 Intake and Output 08/22/19 08/23/19 08/23/19 21:59 05:59 13:59 Intake Total 320 Output Total 801 1 Balance -801 319 Weight 95 lb Intake & Output: Intake & Output 08/22/19 08/23/19 08/23/19 21:59 05:59 13:59 Intake Total 320 Output Total 801 1 Balance -801 319 Weight 95 lb Intake: Oral 320 Output: Urine Catheter Amount 800 Straight 800 # of times incontinent of urine 1 1 Other: Urine Appearance Straight Clear Urine Color Straight Pale Stool Size Large Stool Color Black Stool Consistency Dry and Hard Formed # Voids 1 # of times incontinent of 1 Bowels General appearance: no acute distress Exam: Persistent pallor Nonlabored breathing No anxiety Nondistended abdomen Medical - PN: Obj Da - Labs CBC & Chem 7: 08/23/19 05:30 08/23/19 05:30 Labs: Abnormal Lab Results 08/23/19 08/23/19 08/22/19 05:30 05:30 04:40 WBC RBC 2.00 L Hgb 6.4 L* Hct 20.5 L* MCV 102.5 H MCHC RDW 18.0 H Plt Count 79 L MPV 12.1 H Lymph # (Auto) 0.78 L Percent Retic PT INR Chloride 120 H 114 H Carbon Dioxide 15 L 17 L BUN 75 H 92 H Creatinine 1.5 H 1.5 H Glucose 111 H Calcium 7.9 L 8.1 L Total Bilirubin Alkaline Phosphatase 36 L 34 L NT-Pro-B Natriuret Pep Total Protein 4.7 L 4.8 L Albumin 2.2 L 2.3 L Albumin/Globulin Ratio 0.9 L 0.9 L 08/22/19 08/21/19 08/21/19 04:40 04:32 04:32 WBC RBC 2.31 L Hgb 7.4 L Hct 23.1 L MCV MCHC RDW 18.3 H Plt Count 73 L MPV 12.2 H Lymph # (Auto) 1.16 L Percent Retic 3.60 H PT INR Chloride 113 H Carbon Dioxide 18 L BUN 95 H Creatinine 1.6 H Glucose Calcium 8.4 L Total Bilirubin 1.4 H Alkaline Phosphatase 36 L NT-Pro-B Natriuret Pep Total Protein 4.9 L Albumin 2.4 L Albumin/Globulin Ratio 08/21/19 08/20/19 08/20/19 04:32 18:28 18:28 WBC 3.7 L RBC 2.45 L Hgb 7.8 L Hct 23.7 L MCV MCHC RDW 17.7 H Plt Count 65 L MPV 12.4 H Lymph # (Auto) 1.24 L Percent Retic PT 15.3 H INR 1.2 H Chloride 110 H Carbon Dioxide 17 L BUN 93 H Creatinine 1.7 H Glucose 117 H Calcium Total Bilirubin Alkaline Phosphatase NT-Pro-B Natriuret Pep 3302.0 H Total Protein 5.7 L Albumin 2.7 L Albumin/Globulin Ratio 0.9 L 08/20/19 18:28 WBC 3.9 L RBC 1.41 L Hgb 4.7 L* Hct 15.5 L* MCV 109.9 H MCHC 30.3 L RDW 17.1 H Plt Count 89 L MPV 12.9 H Lymph # (Auto) 0.89 L Percent Retic PT INR Chloride Carbon Dioxide BUN Creatinine Glucose Calcium Total Bilirubin Alkaline Phosphatase NT-Pro-B Natriuret Pep Total Protein Albumin Albumin/Globulin Ratio Meds: Medications Atorvastatin Calcium (Lipitor) 40 mg PO DAILY [facility] Sodium Chloride (Sodium Chloride 0.9%) 1,000 mls @ 50 mls/hr IV .Q20H [facility] Last Admin: 08/22/19 17:33 Dose: 50 mls/hr Documented by: Sodium Chloride (Sodium Chloride 0.9%) 250 mls @ 20 mls/hr IV .[id number] [facility] Stop: 08/23/19 20:14 Metoclopramide HCl (Reglan) 5 mg IV Q6HP PRN PRN Reason: Nausea And Vomiting Metoprolol Tartrate (Lopressor) 12.5 mg PO BID [facility] Last Admin: 08/22/19 21:56 Dose: 12.5 mg Documented by: Oxybutynin Chloride (Ditropan) 5 mg PO BID [facility] Last Admin: 08/22/19 21:56 Dose: 5 mg Documented by: Pantoprazole Sodium (Protonix) 40 mg IV BIDAC [facility] Last Admin: 08/23/19 07:17 Dose: 40 mg Documented by: Sodium Chloride (Saline Flush) 10 ml IV Q8 [facility] Last Admin: 08/23/19 06:00 Dose: Not Given Documented by: Sucralfate (Carafate) 1 gm PO Q6 [facility] Last Admin: 08/23/19 06:00 Dose: 1 gm Documented by: Medical - PN: A/P - Time Spent With Patient Total time spent is greater than 50% in coordination of care (as documented) at patient's floor/unit and/or counseling patient: 15 - 24 minutes - Narrative A/P Narrative: * Acute blood loss anemia likely secondary to NSAID gastropathy. Hemoglobin 6.4. Additional 2 units PRBC. On IV PPI transition to oral today. Erosive gastritis on EGD. Continue Carafate * Bradycardia resolved. Continue metoprolol dose at 12.5. * Generalized weakness continue PT OT/dietary intervention. * CKD stage III with acute rise in BUN due to upper GI bleed. Clinically improving. * History of hypertension currently stable. Restart losartan once systolic over 140 * Hyperlipidemia continue statin * Full code * Prophylaxis SCDs Plan * Transition to oral PPI * Carafate * 2 Units PRBC * Discharge likely in 24 hours * Avoid NSAIDs in future
--- NOTE | 2019-08-23 13:16 | Operative Note ---
DATE OF OPERATION: 08/22/2019 PREOPERATIVE DIAGNOSES: Severe anemia, gastrointestinal bleeding. 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 PROCEDURE: Esophagogastroduodenoscopy. SURGEON: Aide Emmanuel M.D. FINDINGS: As noted above. The patient also had a Zenker's diverticulum, but opening of the diverticulum was not cannulated. DESCRIPTION OF PROCEDURE: Under general anesthesia, the patient turned to the left lateral decubitus position. Bite block was placed. Timeout procedure was carried out as per protocol. Scope was introduced through the bite block into the retropharynx past the cricopharyngeus. The esophagus was slightly tight at the level distal to the cricopharyngeus. Opening to the Zenker's diverticulum was noted but was not cannulated. The rest of the esophagus showed tertiary contractions. There was inflammation at the GE junction but no ulceration and no stricture. There was acute diffuse inflammation of the fundus and antrum with some early erosive changes in the fundus. There was slight oozing diffusely in the fundus. There was easy friability in the antrum, but there were no sarah ulcerations. The pylorus was deformed and mildly stenotic but was able to be easily cannulated. There was acute inflammation in the duodenal bulb with a stricture in the second portion of the duodenum which was easily cannulated. Distal to the stricture, the duodenum appeared to be normal out to the third portion. Scope was pulled back. Because of thrombocytopenia, I did not do any biopsies since biopsies were done in June and showed ___ acute gastritis. Retroflex view was done. It showed the aforementioned changes but no other findings were noted. Air was suctioned from the stomach and the scope was removed. The patient tolerated the procedure well. She was awakened and transferred to the postanesthetic care unit in stable, satisfactory condition. LCS:miryam Job ID: [id number] Doc ID: [id number] Aide Emmanuel M.D.
[2019-08-23] MEDS: 0.9 % SODIUM CHLORIDE 1,000 ML IV SCH (16:54)
[2019-08-23] MEDS: PANTOPRAZOLE 40 MG TABLET PO SCH (17:01)
[2019-08-24] MEDS: SUCRALFATE 1 GM/10 ML ORAL.SUSP PO SCH ×4 (00:07→17:15)
[2019-08-24] MEDS: 0.9 % SODIUM CHLORIDE 10 ML SYRINGE IV SCH ×2 (05:42→12:52)
[2019-08-24] MEDS: PANTOPRAZOLE 40 MG TABLET PO SCH ×2 (06:51→17:15)
[2019-08-24 07:01] LABS: Basophils # (Auto) 0.01 K/mcL (0.00-0.30); Basophils % (Auto) 0.2 % (0.0-2.0); Eosinophils % (Auto) 4.5 % (0.0-7.0); Granulocytes % (Auto) 62.1 % (38.0-78.0); Hematocrit 28.9 % (34.1-44.9); Hemoglobin 9.8 g/dL (11.2-15.7); Lymphocytes # (Auto) 1.08 K/mcL (1.50-4.80); Lymphocytes % (Auto) 24.1 % (15.5-49.0); Mean Cell Volume 95.7 fL (80.0-100.0); Mean Corpuscular HGB Conc 33.9 g/dL (31.0-36.0); Monocytes # (Auto) 0.41 K/mcL (0.10-0.90); Monocytes % (Auto) 9.1 % (1.0-12.0); Platelet Count 79 K/mcL (140-440); RBC 3.02 M/mcL (3.59-5.38); Red Cell Distribution Width 18.4 % (11.5-14.5); WBC 4.5 K/mcL (4.50-11.00)
[2019-08-24 08:05] LABS: ALT/SGPT 17 U/l (0-40); AST/SGOT 25 U/l (0-37); Albumin 2.1 gm/dL (3.2-5.2); Albumin/Globulin Ratio 0.9 (1.0-2.3); Alkaline Phosphatase 37 U/L (39-117); Bilirubin,Direct 0.3 mg/dL (0.0-0.3); Bilirubin,Total 1.5 mg/dL (0.0-1.0); Calcium 7.3 mg/dl (8.6-10.4); Carbon Dioxide 14 mmol/L (22-30); Globulin 2.3 gm/dL (2.2-3.7); Glomerular Filtration Rate 34; Glucose 87 mg/dL (70-105); Lactate Dehydrogenase 183 U/L (94-250); Triglycerides 62 mg/dl (<150); Uric Acid 6.4 mg/dL (2.5-8.0)
[2019-08-24 08:07] LABS: Blood Urea Nitrogen 58 mg/dl (8-23); Chloride 120 mmol/L (96-108); Phosphorous 2.1 mg/dL (2.7-4.5)
[2019-08-24] MEDS: METOPROLOL TARTRATE 25 MG TABLET PO SCH (08:46)
[2019-08-24] MEDS ORDERED: POTASSIUM CHLORIDE 20 MEQ PACKET PO ONE (08:50)
[2019-08-24] MEDS: OXYBUTYNIN CHLORIDE 5 MG TABLET PO SCH (09:05)
[2019-08-24] MEDS: ATORVASTATIN 40 MG TABLET PO SCH (09:05)
--- NOTE | 2019-08-24 09:30 | Discharge Summary ---
Medical - DS: Prov Patient information: Note initiated : 08/24/19 at 9:27 am Service Date, if different from initiated Date: [] Patient: Belle Celaya 88 y/o F admitted on 08/20/19 for chest congestion, weakness. Chief Complaint: [] Date of admission: 08/20/19 21:46 Discharge date: 08/24/19 Primary care physician: Anel Matthews Consults: 08/20/19 Consult to Physician [CONS] Stat Comment: Consulting Provider: Keyanna Hilario Reason For Exam: Physician to Consult Consult to Physician [CONS] Stat Comment: Consulting Provider: Aide Emmanuel Reason For Exam: Physician to Consult Medical - DS: Meds - Discharge Medications Prescriptions: Sucralfate [Carafate] 1 gm PO Q6 #30 oral.susp Transmission Status: Pending to [address] Metoprolol Tartrate [Lopressor] 12.5 mg PO BID #20 tab Transmission Status: Pending to [address] Pantoprazole [Protonix] 40 mg PO BIDAC #60 tab Transmission Status: Pending to [address] Active and Home Medications: Home Medications Losartan Potassium [Cozaar] 100 mg PO DAILY 05/27/17 [History Confirmed 08/21/19 Last Taken 08/20/19 08:00] Oxybutynin Chloride [Ditropan] 5 mg PO BID 05/27/17 [History Confirmed 08/21/19 Last Taken 08/20/19 08:00] Simvastatin [Zocor] 40 mg PO DAILY 05/27/17 [History Confirmed 08/21/19 Last Taken 08/19/19 08:00] LORazepam [Lorazepam] 0.5 mg PO HSP PRN 08/21/19 [History Confirmed 08/21/19 Last Taken Unknown] Metoprolol Tartrate [Lopressor] 12.5 mg PO BID #20 tab 08/24/19 [Rx Last Taken Unknown] Pantoprazole [Protonix] 40 mg PO BIDAC #60 tab 08/24/19 [Rx Last Taken Unknown] Sucralfate [Carafate] 1 gm PO Q6 #30 oral.susp 08/24/19 [Rx Last Taken Unknown] Medical - DS: Hosp Hospital Course: Discharge diagnosis * Acute blood loss anemia likely secondary to NSAID gastropathy. Hemoglobin improved to 9.4 status post 4 unit blood transfusion. * Erosive gastritis with upper GI bleed continue sucralfate/PPI. Status post EGD 08/21 * Intermittent bradycardia. Metoprolol dose lowered to 12.5. * Generalized weakness continue home health physical therapy * CKD stage III, creatinine at 1.4. With acute rise in BUN due to upper GI bleed. Improved * History of hypertension- Continue losartan/metoprolol 12.5 * Hyperlipidemia continue statin Brief hospital course Ms. Celaya is a 88 year old F with a hx of chronic amenia, CKD, and HTN who was brought to the ER due to generalized weakness x days. Pt is a poor historian and some information is obtained from ER chart. As per family, pt has been feeling tired for days. She also complains of chest congestion with mild cough and minimal amount of sputum. But she denies cough, headache, dizziness, cheat pain, sob, abd pain, n/v/d, dysuria, hematemesis, melena or hematochezia. In the ER, her HB was found to be 4.7. Two units of pRBC were ordered. GS Dr. Emmanuel was consulted, who would like to let hospitalist admit her and he will scope pt on Thursday. When I saw pt in the ER, other than the symptoms mentioned above, pt was fine. Denies recent travel or sick contact. 08/20 Today pt Today patient feels much better and stronger. Denies dizziness, chest pain, shortness of breath, headache, nausea or vomiting. Vital signs are stable and acceptable. Hemoglobin 7.8 today. Status post 2 units of PRBC yesterday. Dr. Emmanuel will see patient and scope patient tomorrow 08/21-patient doing well. No overnight events. Persistent dysphagia. Currently n.p.o. Bradycardic in mid to high 30s. Beta-gisell dose reduced by half. Hemoglobin 7.4 status post units PRBC. No further bloody bowels. Upperendoscopy today. Continue PPI. Recommend avoidance of NSAIDs. 08/22-patient doing well. Doing his blood transfusion. No further bloody bowels. Status post EGD. Erosive gastritis/colitis. On PPI/Carafate. Advised to refrain from aspirin and Motrin will likely discharge in 24 hours if continues to improve clinically 08/23-patient doing well. Hemoglobin improved to 9.4. Status post 4 units transfusion. Continue sucralfate/PPI. Avoid NSAIDs/aspirin. Follow-up with primary care physician on discharge. Continue home meds physical therapies. Discharge diagnosis: . - Time Spent with Patient Total time spent providing and/or coordinating discharge services: Greater than 30 minutes Medical - DS: Exam - Constitutional Vitals: Vital Signs Temp Pulse Resp BP Pulse Ox 08/24/19 07:15 97.8 F 48 L 18 120/60 98 08/24/19 05:50 98.5 F 58 L 14 148/63 98 08/24/19 04:08 97.8 F 45 L 12 101/51 96 08/24/19 02:10 97.5 F 49 L 16 98/58 96 08/23/19 23:58 98.2 F 49 L 16 120/48 96 08/23/19 22:00 98.6 F 50 L 16 144/60 97 08/23/19 20:02 97.9 F 55 L 16 157/61 98 08/23/19 17:59 98.0 F 71 14 128/57 98 08/23/19 16:00 98.2 F 57 L 18 121/51 97 08/23/19 14:00 97.9 F 52 L 18 146/57 96 08/23/19 12:00 98.1 F 62 14 150/62 100 08/23/19 10:00 98.5 F 67 14 151/55 99 Intake and Output 08/23/19 08/24/19 08/24/19 21:59 05:59 13:59 Intake Total 350 Output Total 3 1 Balance -3 349 Intake: Oral 350 Output: # of times incontinent of urine 3 1 Other: Stool Size Smear # of times incontinent of 1 Bowels Weight 95 lb Medical - DS: Data Labs on day of discharge: Labs from last 24 hours 08/24/19 08/24/19 08/24/19 05:30 05:30 05:30 WBC 4.5 RBC 3.02 L Hgb 9.8 L Hct 28.9 L MCV 95.7 MCH 32.5 MCHC 33.9 RDW 18.4 H Plt Count 79 L MPV 12.0 H Gran % 62.1 Lymph % (Auto) 24.1 Mcnairy % (Auto) 9.1 Eos % (Auto) 4.5 Baso % (Auto) 0.2 Gran # 2.79 Lymph # (Auto) 1.08 L Mcnairy # (Auto) 0.41 Eos # (Auto) 0.20 Baso # (Auto) 0.01 Sodium 144 TNP Potassium 3.4 TNP Chloride 120 H TNP Carbon Dioxide 14 L TNP Anion Gap 10.0 TNP BUN 58 H TNP Creatinine 1.4 H TNP GFR Calculation 34 TNP Glucose 87 TNP Uric Acid 6.4 Calcium 7.3 L TNP Phosphorus 2.1 L Magnesium 1.8 Total Bilirubin 1.5 H TNP Direct Bilirubin 0.3 GGT 9 AST 25 TNP ALT 17 TNP Alkaline Phosphatase 37 L TNP Lactate Dehydrogenase 183 Total Protein 4.4 L TNP Albumin 2.1 L TNP Globulin 2.3 TNP Albumin/Globulin Ratio 0.9 L TNP Triglycerides 62 Miscellaneous Test 08/20/19 19:55 WBC RBC Hgb Hct MCV MCH MCHC RDW Plt Count MPV Gran % Lymph % (Auto) Mcnairy % (Auto) Eos % (Auto) Baso % (Auto) Gran # Lymph # (Auto) Mcnairy # (Auto) Eos # (Auto) Baso # (Auto) Sodium Potassium Chloride Carbon Dioxide Anion Gap BUN Creatinine GFR Calculation Glucose Uric Acid Calcium Phosphorus Magnesium Total Bilirubin Direct Bilirubin GGT AST ALT Alkaline Phosphatase Lactate Dehydrogenase Total Protein Albumin Globulin Albumin/Globulin Ratio Triglycerides Miscellaneous Test Medical - DS: A/P - Patient/Caregiver Discharge Instructions Activity: as per physical therapy Diet: Low Sodium (2gm) Additional Instructions: Follow-up PCP in 5 days Continue sucralfate/PPI for GI bleed Do not use NSAIDs or aspirin I recommend primary care physician to check CBC BMP UA as a posthospital follow- up in 1 week. Reduce metoprolol dose to 12.5 twice a day Continue aggressive bowel regimen to prevent constipation Continue fall precautions Home health PT OT High protein calorie supplements All meals on chair sitting upright at 90 degrees to prevent aspiration Return to ER if worsening abdominal pain/bleeding/lightheadedness dizziness Continue diet and activity as advised Discussed importance of medication adherence Please review medication list with patient prior to discharge Please schedule follow-up with PCP/Providers prior to discharge and provide printouts Prescriptions: Sucralfate [Carafate] 1 gm PO Q6 #30 oral.susp Transmission Status: Pending to [address] Metoprolol Tartrate [Lopressor] 12.5 mg PO BID #20 tab Transmission Status: Pending to [address] Pantoprazole [Protonix] 40 mg PO BIDAC #60 tab Transmission Status: Pending to [address] - Follow up Plan Follow up with: Anel Matthews ARNP [Primary Care Provider] - Disposition: Home Health Service Prognosis: Fair Rehab Potential: Fair I certify that the patient requires SNF services: No Overall status at discharge: patient is progressing back to baseline
[2019-08-24] MEDS: 0.9 % SODIUM CHLORIDE 1,000 ML IV SCH ×2 (10:17→12:34)
[2019-08-24 13:40] LABS: Hematocrit 33.3 % (34.1-44.9)
== END 2019-08-24 17:45 | disposition home health service (06) | DRG 378 ==
LOC: ED 17:54 → ICU 21:46 → MEDSUR 08-23 00:01
PROVIDERS: ADMIT Internal Medicine; ATTEND Internal Medicine

== ENCOUNTER 2019-12-27 19:03 | Inpatient (IN) ==
--- NOTE | 2019-12-27 20:28 | Emergency Department Note ---
Weakness HPI General Chief complaint: Weakness Stated complaint: weakness Time Seen by Provider: 12/27/19 19:21 Mode of arrival: EMS Limitations: physical limitation History of Present Illness HPI Narrative: -year-old female comes here accompanied by her son-in-law Pernell. She has had gradual degeneration and loss of her ability to ambulate to the point now with her weakness as severe that she is seeking additional treatment or investigation. A month ago she was sent to [facility] after she had a hemoglobin in the 3 range, required transfusions and GI investigation was negative. Before then she was able to take steps with her walker. After then she could only take very stuttering baby steps and has had increased tremor. She is now unable to walk having had a fall 6 days ago in which she sprained her right ankle. The swelling is improving and pain is improving but she still not able to walk. She also injured her right shoulder some, and it has "[id number]" in it. She is generally weaker and even hunching over which she did not used to do. Pernell reports that she sleeps a lot during the day taking multiple naps and stays up watching movies sometimes till 3 or 4 in the morning. Physical therapy has been ordered recently and was to be started this week. She has a caregiver who also works with her trying to help her get stronger and works with her about 4 hours a day but this has not seemed to be helpful at all. Related Data Previous Rx's Medication Instructions Recorded duo derm #20 each 10/26/19 metoprolol tartrate 25 mg tablet 12.5 mg PO BID #90 tab 10/26/19 pantoprazole 40 mg tablet,delayed 40 mg PO BIDAC #90 tab 10/26/19 release Allergies Allergy/AdvReac Type Severity Reaction Status Date / Time Penicillins Allergy Severe Anaphylaxis Verified 12/27/19 19:20 azithromycin [From Zithromax] Allergy Unknown unknown Verified 12/27/19 19:20 anderson Allergy Unknown Swelling Verified 12/27/19 19:20 of Lip/Tongue/Throat omeprazole Allergy Unknown unknown Verified 12/27/19 19:20 Review of Systems ROS ROS Narrative: Narrative: [facility] Narrative Patient History Narrative: Narrative: Medical/Surgical/Family History All Active Problems (Updated 12/27/19 @ 23:56 by Alfredo Gonzalez DO) Weakness (Acute) Hypokalemia (Acute) DNR (do not resuscitate) (Acute) Limited mobility (Acute) Bowel and bladder incontinence (Acute) Pressure ulcer, stage III (Acute) Weakness (Acute) Ankle sprain (Acute) Urinary incontinence (Acute) Dark urine (Acute) Fatigue (Acute) Sudden change of mood (Acute) Acute viral syndrome (Acute) Hand edema (Acute) Acute upper gastrointestinal bleeding (Acute) Constipation (Acute) GI (gastrointestinal bleed) (Acute) Anemia (Acute) Acute on chronic kidney failure (Acute) Chronic anemia (Acute) Occult blood positive stool (Acute) Chronic iron deficiency anemia (Acute) History of angioplasty (Chronic) History of total abdominal hysterectomy and bilateral salpingo-oophorectomy (Chronic) Basal cell carcinoma (BCC) of skin of nose (Chronic) Hyperlipidemia (Chronic) Lumbar back pain (Chronic) Vitamin D deficiency (Chronic) Loss of weight (Chronic) Muscle weakness (Chronic) Mixed incontinence urge and stress (Chronic) Epistaxis (Chronic) Decreased strength (Chronic) Zenkers diverticulum (Chronic) History of falling (Chronic) Pedal edema (Chronic) Nutrition deficiency due to insufficient food (Chronic) Diabetes mellitus, type II (Chronic) Asthma (Chronic) Erosive gastritis (Chronic) Incontinence in female (Chronic) Failure to thrive (Chronic) Osteoporosis (Chronic) Kidney failure (Chronic) Insomnia (Chronic) Depression (Chronic) Daytime sleepiness (Chronic) Muscle pain (Chronic) Skin cancer (Chronic) Acid reflux (Chronic) Community acquired pneumonia (Chronic) Left lower lobe pneumonia (Chronic) CKD (chronic kidney disease), stage III (Chronic) Hypertension (Chronic) Hypercholesterolemia (Chronic) Anemia (Chronic) Sebaceous cyst (Chronic) Diarrhea (Chronic) Lactic acid acidosis (Chronic) Dehydration, mild (Chronic) KELLY (acute kidney injury) (Chronic) Generalized weakness (Chronic) Dehydration, moderate (Chronic) Cough (Chronic) Dehydration (Chronic) Shoulder pain (Chronic) Shoulder effusion (Chronic) Pneumonia (Chronic) Influenza A (Chronic) Diarrhea due to drug (Chronic) Dysphagia (Chronic) GI bleed (Chronic) Acute blood loss anemia (Chronic) Acute on chronic kidney failure (Chronic) Medical History (Updated 12/27/19 @ 23:56 by Alfredo Gonzalez DO) Acid reflux (Chronic) Acute blood loss anemia (Chronic) Acute on chronic kidney failure (Chronic) KELLY (acute kidney injury) (Chronic) Anemia (Chronic) Asthma (Chronic) Basal cell carcinoma (BCC) of skin of nose (Chronic) CKD (chronic kidney disease), stage III (Chronic) Community acquired pneumonia (Chronic) Cough (Chronic) Daytime sleepiness (Chronic) Decreased strength (Chronic) Dehydration (Chronic) Dehydration, mild (Chronic) Dehydration, moderate (Chronic) Depression (Chronic) Diabetes mellitus, type II (Chronic) Diarrhea (Chronic) Diarrhea due to drug (Chronic) Dysphagia (Chronic) Epistaxis (Chronic) Erosive gastritis (Chronic) Failure to thrive (Chronic) Generalized weakness (Chronic) GI bleed (Chronic) History of falling (Chronic) Hypercholesterolemia (Chronic) Hyperlipidemia (Chronic) Hypertension (Chronic) Influenza A (Chronic) Insomnia (Chronic) Kidney failure (Chronic) Lactic acid acidosis (Chronic) Left lower lobe pneumonia (Chronic) Loss of weight (Chronic) Lumbar back pain (Chronic) Mixed incontinence urge and stress (Chronic) Muscle pain (Chronic) Muscle weakness (Chronic) Nutrition deficiency due to insufficient food (Chronic) Osteoporosis (Chronic) Pedal edema (Chronic) Pneumonia (Chronic) Sebaceous cyst (Chronic) Shoulder effusion (Chronic) Shoulder pain (Chronic) Skin cancer (Chronic) Vitamin D deficiency (Chronic) Zenkers diverticulum (Chronic) Surgical History History of angioplasty (Chronic) History of colonoscopy (Chronic) History of esophagogastroduodenoscopy (Chronic) Stretching History of throat surgery (Chronic) 3 History of total abdominal hysterectomy and bilateral salpingo-oophorectomy (Chronic) Family History Arthritis Mother Dementia Mother Myocardial infarction Father HTN (hypertension) Father Social History Smoking Status: Never smoker Alcohol Intake Frequency: does not drink Substance Use: does not use Exam Narrative Narrative: Narrative: General Limitations: physical limitation General appearance: alert, cachectic, in no apparent distress, nontoxic, thin and other (Fairly alert, wide-eyed and interactive but holding fairly still and partially balled up. Earlier was fairly hunched over in transport on a gurney.) Head Head: atraumatic and normocephalic Eye Eye: Present normal appearance, PERRL, EOMI and other (Intraocular lens on the right.) ENT ENT: Present normal oropharynx and mucous membranes dry (mildly) Neck Neck: Present trachea midline; Absent lymphadenopathy and thyromegaly Chest Chest: Present symmetric chest wall rise Respiratory Respiratory: Present normal lung sounds bilaterally; Absent respiratory distress, rales/crackles, wheezes, stridor, accessory muscle use and prolonged expiratory phase Cardiovascular Cardiovascular: Present regular rate and normal rhythm; Absent systolic murmur and diastolic murmur Adbominal Abdominal: Present soft; Absent distention, tenderness, guarding, rebound, rigidity, organomegaly and mass Extremities Extremities: Present normal capillary refill and pedal edema (Right foot and right ankle with 2/4 soft but pitting edema. Left ankle trace. Right ankle is moderately warm. No erythema.); Absent pretibial edema, calf tenderness and cyanosis Back Back: Neurological Neurological: Present alert and oriented X3 Psychiatric Psychiatric: Present normal affect, flat affect (mildly), serious, polite and pleasant; Absent depressed, agitated, anxious and poor eye contact Skin Skin: Present warm and dry; Absent cyanosis and pallor Course Vital Signs Vital signs: Vital Signs Temperature 99.0 F 12/27/19 19:07 Pulse Rate 85 12/27/19 19:07 Respiratory Rate 16 12/27/19 19:07 Blood Pressure 179/75 12/27/19 19:07 Pulse Oximetry (%) 98 12/27/19 19:07 Temperature 99.0 F 12/27/19 19:07 Pulse Rate 77 12/27/19 23:32 Respiratory Rate 16 12/27/19 19:07 Blood Pressure 164/66 12/27/19 23:32 Pulse Oximetry (%) 95 12/27/19 23:32 [facility] Narrative Medical decision making narrative: Narrative: White count 10.0. Hemoglobin and hematocrit seem to be stable at 10.6/31.9. Platelet count stable at 177. Lactic acid normal at 1.3. Potassium 2.6 and patient was given oral potassium and a K rider. Carbon dioxide is 17 but the anion gap is 16.0. BUN and creatinine are better than usual baseline at 23 and 1.3. Blood sugar 210. CRP elevated at 8.3. Troponin 0 0.03. TSH normal at 1.71. Chest x-ray with possible increased markings throughout and/or the right cardiophrenic heart border. However, is not tachycardic, not hypotensive, norm al oxygen, afebrile, does not look toxic or sick or ill or clammy, etc. In discussing with patient her CODE STATUS she does not want aggressive measures, DNR is her choice and this was witnessed and reaffirmed by her son in law who is present. With concern of empiric treatment of possible UTI or possible early pneumonia concern of diarrhea, being able to care for patient, persistence of electrolyte abnormalities, etc. was brought up by patient's son-in-law. I agreed to address with staff and hospitalist. Patient's 2.6 potassium with her generalized weakness does qualify her for an outpatient observation stay. I spoke with Dr. Gallagher who is agreeable to accept this patient's care. We will do inpatient profile, CBC and magnesium in the morning and will give additional potassium this evening. Lab Data Result diagrams: 12/27/19 20:10 12/27/19 20:10 Labs: Lab Results 12/27/19 12/27/19 12/27/19 Range/Units 20:10 20:10 20:10 WBC 10.0 (4.50-11.00) K/mcL RBC 3.21 L (3.59-5.38) M/mcL Hgb 10.6 L (11.2-15.7) g/dL Hct 31.9 L (34.1-44.9) % MCV 99.4 (80.0-100.0) fL MCH 33.0 (26.0-34.0) pg MCHC 33.2 (31.0-36.0) g/dL RDW 17.0 H (11.5-14.5) % Plt Count 177 (140-440) K/mcL MPV 11.1 H (7.4-10.4) fL Gran % 88.9 H (38.0-78.0) % Lymph % (Auto) 5.4 L (15.5-49.0) % [place]hin % (Auto) 5.7 (1.0-12.0) % Eos % (Auto) 0 (0.0-7.0) % Baso % (Auto) 0 (0.0-2.0) % Gran # 8.90 H (1.80-8.00) K/mcL Lymph # (Auto) 0.54 L (1.50-4.80) K/mcL Dauphin # (Auto) 0.57 (0.10-0.90) K/mcL Eos # (Auto) 0 (0.00-0.70) K/mcL Baso # (Auto) 0 (0.00-0.30) K/mcL VBG Lactic Acid (0.5-2.0) mmol/L Sodium 140 (133-145) mmol/L Potassium 2.6 L* (3.3-5.1) mmol/L Chloride 107 (96-108) mmol/L Carbon Dioxide 17 L (22-30) mmol/L Anion Gap 16.0 (8-16) BUN 23 (8-23) mg/dl Creatinine 1.3 H (0.6-1.1) mg/dl GFR Calculation 37 Glucose 210 H (70-105) mg/dL Calcium 9.0 (8.6-10.4) mg/dl Total Bilirubin 1.0 (0.0-1.0) mg/dL AST 18 (0-37) U/l ALT 8 (0-40) U/l Alkaline Phosphatase 61 (39-117) U/L Troponin T 0.03 (0-0.03) ng/ml C-Reactive Protein (0.0-0.8) mg/dl Total Protein 6.7 (5.9-8.4) gm/dL Albumin 3.1 L (3.2-5.2) gm/dL Globulin 3.6 (2.2-3.7) gm/dL Albumin/Globulin Ratio 0.9 L (1.0-2.3) TSH (0.27-5.01) uIU/ml 12/27/19 12/27/19 Range/Units 20:10 20:40 WBC (4.50-11.00) K/mcL RBC (3.59-5.38) M/mcL Hgb (11.2-15.7) g/dL Hct (34.1-44.9) % MCV (80.0-100.0) fL MCH (26.0-34.0) pg MCHC (31.0-36.0) g/dL RDW (11.5-14.5) % Plt Count (140-440) K/mcL MPV (7.4-10.4) fL Gran % (38.0-78.0) % Lymph % (Auto) (15.5-49.0) % Da[place]hin % (Auto) (1.0-12.0) % Eos % (Auto) (0.0-7.0) % Baso % (Auto) (0.0-2.0) % Gran # (1.80-8.00) K/mcL Lymph # (Auto) (1.50-4.80) K/mcL Dauphin # (Auto) (0.10-0.90) K/mcL Eos # (Auto) (0.00-0.70) K/mcL Baso # (Auto) (0.00-0.30) K/mcL VBG Lactic Acid 1.3 (0.5-2.0) mmol/L Sodium (133-145) mmol/L Potassium (3.3-5.1) mmol/L Chloride (96-108) mmol/L Carbon Dioxide (22-30) mmol/L Anion Gap (8-16) BUN (8-23) mg/dl Creatinine (0.6-1.1) mg/dl GFR Calculation Glucose (70-105) mg/dL Calcium (8.6-10.4) mg/dl Total Bilirubin (0.0-1.0) mg/dL AST (0-37) U/l ALT (0-40) U/l Alkaline Phosphatase (39-117) U/L Troponin T (0-0.03) ng/ml C-Reactive Protein 8.3 H (0.0-0.8) mg/dl Total Protein (5.9-8.4) gm/dL Albumin (3.2-5.2) gm/dL Globulin (2.2-3.7) gm/dL Albumin/Globulin Ratio (1.0-2.3) TSH 1.71 (0.27-5.01) uIU/ml Discharge Plan Patient/Caregiver Discharge Instructions Pt seen by COURT REGISTRY OFFICER/PA only: No Clinical Impression: Weakness, Hypokalemia, DNR (do not resuscitate) Patient Disposition: Xfer As Outpt/Obs ([facility]) Condition: Undetermined Follow up with: Bety Guzman ARNP [Primary Care Provider] - Prescriptions: No Action pantoprazole 40 mg tablet,delayed release (DR/EC) 40 mg PO BIDAC Qty: 90 RF: 1 metoprolol tartrate 25 mg tablet 12.5 mg PO BID Qty: 90 RF: 0 (DME) duo derm Qty: 20 RF: 5
[2019-12-27] MEDS ORDERED: 0.9 % SODIUM CHLORIDE 500 ML IV ONE (20:36)
[2019-12-27 21:05] LABS: Basophils # (Auto) 0 K/mcL (0.00-0.30); Basophils % (Auto) 0 % (0.0-2.0); Eosinophils # (Auto) 0 K/mcL (0.00-0.70); Eosinophils % (Auto) 0 % (0.0-7.0); Granulocytes % (Auto) 88.9 % (38.0-78.0); Hematocrit 31.9 % (34.1-44.9); Hemoglobin 10.6 g/dL (11.2-15.7); Lymphocytes # (Auto) 0.54 K/mcL (1.50-4.80); Lymphocytes % (Auto) 5.4 % (15.5-49.0); Mean Cell Volume 99.4 fL (80.0-100.0); Mean Corpuscular HGB Conc 33.2 g/dL (31.0-36.0); Mean Platelet Volume 11.1 fL (7.4-10.4); Monocytes # (Auto) 0.57 K/mcL (0.10-0.90); Monocytes % (Auto) 5.7 % (1.0-12.0); Platelet Count 177 K/mcL (140-440); RBC 3.21 M/mcL (3.59-5.38)
[2019-12-27 21:19] LABS: ALT/SGPT 8 U/l (0-40); AST/SGOT 18 U/l (0-37); Albumin 3.1 gm/dL (3.2-5.2); Albumin/Globulin Ratio 0.9 (1.0-2.3); Alkaline Phosphatase 61 U/L (39-117); Blood Urea Nitrogen 23 mg/dl (8-23); Carbon Dioxide 17 mmol/L (22-30); Chloride 107 mmol/L (96-108); Globulin 3.6 gm/dL (2.2-3.7); Glomerular Filtration Rate 37; Glucose 210 mg/dL (70-105)
[2019-12-27] MEDS ORDERED: POTASSIUM CHLORIDE 10 MEQ TABLET PO ONE (21:21)
[2019-12-27] MEDS ORDERED: POTASSIUM CHLORIDE 20 MEQ in DEXTROSE 5% IN WATER 250 ML IV ONE (21:23)
[2019-12-27 21:30] LABS: C-Reactive Protein 8.3 mg/dl (0.0-0.8); Thyroid Stimulating Hormone 1.71 uIU/ml (0.27-5.01)
[2019-12-27] MEDS ORDERED: 0.9 % SODIUM CHLORIDE 1,000 ML IV SCH (23:45)
[2019-12-27] MEDS ORDERED: POTASSIUM CHLORIDE 20 MEQ TABLET PO ONE (23:49)
[2019-12-28] MEDS ORDERED: ACETAMINOPHEN 500 MG TABLET PO ONE ×2 (01:41→01:53)
[2019-12-28] MEDS ORDERED: ACETAMINOPHEN 500 MG TABLET PO PRN (01:42)
[2019-12-28 06:34] LABS: Basophils # (Auto) 0 K/mcL (0.00-0.30); Basophils % (Auto) 0 % (0.0-2.0); Eosinophils # (Auto) 0.03 K/mcL (0.00-0.70); Eosinophils % (Auto) 0.4 % (0.0-7.0); Granulocytes % (Auto) 81.5 % (38.0-78.0); Hemoglobin 8.2 g/dL (11.2-15.7); Lymphocytes # (Auto) 0.77 K/mcL (1.50-4.80); Lymphocytes % (Auto) 11.5 % (15.5-49.0); Mean Cell Volume 101.6 fL (80.0-100.0); Mean Corpuscular HGB Conc 32.8 g/dL (31.0-36.0); Mean Platelet Volume 10.9 fL (7.4-10.4); Monocytes # (Auto) 0.44 K/mcL (0.10-0.90); Monocytes % (Auto) 6.6 % (1.0-12.0); Platelet Count 123 K/mcL (140-440); RBC 2.46 M/mcL (3.59-5.38); Red Cell Distribution Width 16.6 % (11.5-14.5); WBC 6.7 K/mcL (4.50-11.00)
[2019-12-28 06:51] LABS: ALT/SGPT 6 U/l (0-40); AST/SGOT 13 U/l (0-37); Albumin 2.3 gm/dL (3.2-5.2); Albumin/Globulin Ratio 0.8 (1.0-2.3); Alkaline Phosphatase 49 U/L (39-117); Bilirubin,Direct 0.4 mg/dL (0.0-0.3); Bilirubin,Total 0.8 mg/dL (0.0-1.0); Blood Urea Nitrogen 20 mg/dl (8-23); Calcium 7.9 mg/dl (8.6-10.4); Carbon Dioxide 18 mmol/L (22-30); Chloride 112 mmol/L (96-108); Globulin 2.8 gm/dL (2.2-3.7); Glomerular Filtration Rate 37; Glucose 114 mg/dL (70-105); Lactate Dehydrogenase 153 U/L (94-250); Phosphorous 2.2 mg/dL (2.7-4.5); Triglycerides 81 mg/dl (<150); Uric Acid 5.8 mg/dL (2.5-8.0)
[2019-12-28] MEDS ORDERED: MAGNESIUM SULFATE 2 GM/50 ML BAG IV PRN (07:18)
[2019-12-28] MEDS ORDERED: BISACODYL 10 MG SUPP.RECT PR PRN (07:18)
[2019-12-28] MEDS ORDERED: METOPROLOL TARTRATE 5 MG/5 ML VIAL IV PRN (07:18)
[2019-12-28] MEDS ORDERED: POTASSIUM CHLORIDE 20 MEQ PACKET PO PRN (07:18)
[2019-12-28] MEDS ORDERED: ONDANSETRON 4 MG/2 ML VIAL IV PRN (07:18)
[2019-12-28] MEDS ORDERED: POLYETHYLENE GLYCOL 3350 17 GM PACKET PO PRN (07:18)
[2019-12-28] MEDS ORDERED: CALCIUM CHLORIDE 1,000 MG/10 ML SYRINGE IV PRN (07:18)
[2019-12-28] MEDS ORDERED: hydrALAZINE 20 MG/ML VIAL IV PRN (07:18)
[2019-12-28] MEDS ORDERED: POTASSIUM CHLORIDE 40 MEQ in DEXTROSE 5% IN WATER 500 ML IV PRN (07:18)
[2019-12-28] MEDS ORDERED: ONDANSETRON 4 MG ODT TABLET SL PRN (07:18)
[2019-12-28] MEDS ORDERED: ACETAMINOPHEN 650 MG/65 ML BOTTLE IV PRN (07:18)
--- NOTE | 2019-12-28 07:36 | Internal Med History&Physical ---
HPI History of Present Illness Patient information: Note initiated : 12/28/19 at 7:35 am Service Date, if different from initiated Date: [] Patient: Belle Celaya a 89 y/o F admitted on 12/28/19 for weakness. Chief Complaint: Weakness, fall, body aches History of present illness: Ms. Celaya is a 89 year old F with a history of hypertension who lives with her son and daughter. She presents to the ER along with her son Pernell due to gradually progressive weakness limiting her activities of daily living. She sustained a fall roughly 6 days ago spraining her ankle. Since then she has gone downhill with limited mobility, lack of appetite, worsen ing effort tolerance, malaise and multiple episodes of incontinence. She has been followed by nursing caregiver taking care of coccyx ulcer. With increasing concerns family brought to the ER for further evaluation. Initial work-up was consistent with basilar pneumonia on chest imaging, volume depletion/severe hypokalemia with potassium 2.6 patient received 60 mg of potassium in the ER. X-ray ankle unremarkable. subsequently hospitalist service was consulted. At the time of evaluation patient is alert and able to answer most questions. She however endorses to above symptoms increasing fatigue weakness. She endorses to fall few days ago. She complains of persistent right shoulder pain. Denies fever, chest pain, productive cough. Review of systems 10 point review system was performed and is negative except for ones discussed above PFSH PFSH All Active Problems (Updated 12/27/19 @ 23:56 by Alfredo Gonzalez DO) Weakness (Acute) Hypokalemia (Acute) DNR (do not resuscitate) (Acute) Limited mobility (Acute) Bowel and bladder incontinence (Acute) Pressure ulcer, stage III (Acute) Weakness (Acute) Ankle sprain (Acute) Urinary incontinence (Acute) Dark urine (Acute) Fatigue (Acute) Sudden change of mood (Acute) Acute viral syndrome (Acute) Hand edema (Acute) Acute upper gastrointestinal bleeding (Acute) Constipation (Acute) GI (gastrointestinal bleed) (Acute) Anemia (Acute) Acute on chronic kidney failure (Acute) Chronic anemia (Acute) Occult blood positive stool (Acute) Chronic iron deficiency anemia (Acute) History of angioplasty (Chronic) History of total abdominal hysterectomy and bilateral salpingo-oophorectomy (Chronic) Basal cell carcinoma (BCC) of skin of nose (Chronic) Hyperlipidemia (Chronic) Lumbar back pain (Chronic) Vitamin D deficiency (Chronic) Loss of weight (Chronic) Muscle weakness (Chronic) Mixed incontinence urge and stress (Chronic) Epistaxis (Chronic) Decreased strength (Chronic) Zenkers diverticulum (Chronic) History of falling (Chronic) Pedal edema (Chronic) Nutrition deficiency due to insufficient food (Chronic) Diabetes mellitus, type II (Chronic) Asthma (Chronic) Erosive gastritis (Chronic) Incontinence in female (Chronic) Failure to thrive (Chronic) Osteoporosis (Chronic) Kidney failure (Chronic) Insomnia (Chronic) Depression (Chronic) Daytime sleepiness (Chronic) Muscle pain (Chronic) Skin cancer (Chronic) Acid reflux (Chronic) Community acquired pneumonia (Chronic) Left lower lobe pneumonia (Chronic) CKD (chronic kidney disease), stage III (Chronic) Hypertension (Chronic) Hypercholesterolemia (Chronic) Anemia (Chronic) Sebaceous cyst (Chronic) Diarrhea (Chronic) Lactic acid acidosis (Chronic) Dehydration, mild (Chronic) KELLY (acute kidney injury) (Chronic) Generalized weakness (Chronic) Dehydration, moderate (Chronic) Cough (Chronic) Dehydration (Chronic) Shoulder pain (Chronic) Shoulder effusion (Chronic) Pneumonia (Chronic) Influenza A (Chronic) Diarrhea due to drug (Chronic) Dysphagia (Chronic) GI bleed (Chronic) Acute blood loss anemia (Chronic) Acute on chronic kidney failure (Chronic) Medical History (Updated 12/27/19 @ 23:56 by Alfredo Gonzalez DO) Acid reflux (Chronic) Acute blood loss anemia (Chronic) Acute on chronic kidney failure (Chronic) KELLY (acute kidney injury) (Chronic) Anemia (Chronic) Asthma (Chronic) Basal cell carcinoma (BCC) of skin of nose (Chronic) CKD (chronic kidney disease), stage III (Chronic) Community acquired pneumonia (Chronic) Cough (Chronic) Daytime sleepiness (Chronic) Decreased strength (Chronic) Dehydration (Chronic) Dehydration, mild (Chronic) Dehydration, moderate (Chronic) Depression (Chronic) Diabetes mellitus, type II (Chronic) Diarrhea (Chronic) Diarrhea due to drug (Chronic) Dysphagia (Chronic) Epistaxis (Chronic) Erosive gastritis (Chronic) Failure to thrive (Chronic) Generalized weakness (Chronic) GI bleed (Chronic) History of falling (Chronic) Hypercholesterolemia (Chronic) Hyperlipidemia (Chronic) Hypertension (Chronic) Influenza A (Chronic) Insomnia (Chronic) Kidney failure (Chronic) Lactic acid acidosis (Chronic) Left lower lobe pneumonia (Chronic) Loss of weight (Chronic) Lumbar back pain (Chronic) Mixed incontinence urge and stress (Chronic) Muscle pain (Chronic) Muscle weakness (Chronic) Nutrition deficiency due to insufficient food (Chronic) Osteoporosis (Chronic) Pedal edema (Chronic) Pneumonia (Chronic) Sebaceous cyst (Chronic) Shoulder effusion (Chronic) Shoulder pain (Chronic) Skin cancer (Chronic) Vitamin D deficiency (Chronic) Zenkers diverticulum (Chronic) Surgical History History of angioplasty (Chronic) History of colonoscopy (Chronic) History of esophagogastroduodenoscopy (Chronic) Stretching History of throat surgery (Chronic) 3 History of total abdominal hysterectomy and bilateral salpingo-oophorectomy (Chronic) Family History Mother Arthritis Dementia Father HTN (hypertension) Myocardial infarction Social History marital status: physical activity: none smoking status: Never smoker alcohol intake frequency: does not drink substance use type: does not use MEDS/ALLERGIES Home Medications and Allergies Home Medications Medication Instructions Recorded Confirmed Type duo derm #20 each 10/26/19 12/28/19 Rx metoprolol tartrate 25 mg tablet 12.5 mg PO BID #90 tab 10/26/19 12/28/19 Rx pantoprazole 40 mg tablet,delayed 40 mg PO BIDAC #90 tab 10/26/19 12/28/19 Rx release Allergies Allergy/AdvReac Type Severity Reaction Status Date / Time anderson Allergy Severe Swelling Verified 12/28/19 06:42 of Lip/Tongue/Throat Penicillins Allergy Severe Anaphylaxis Verified 12/27/19 19:20 azithromycin [From Zithromax] Allergy Unknown unknown Verified 12/27/19 19:20 omeprazole Allergy Unknown unknown Verified 12/27/19 19:20 EXAM Constitutional Vitals: Temp Pulse Resp BP Pulse Ox 98.1 F 74 22 149/67 97 12/28/19 04:29 12/28/19 04:29 12/28/19 04:29 12/28/19 04:29 12/28/19 04:29 Head normocephalic Oral cavity dry No ear nose discharge Eye movement symmetrical Neck supple no lymphadenopathy S1-S2 occasionally irregular, diminished breath sounds bases Nonlabored breathing Nondistended nontender abdomen Lower extremity minimal lymphedema, right ankle compressive wrap Sacral decubitus ulcer, dressing in place. Psych anxious but alert cooperative Neuro normal higher function DATA Data Completed and Pending Labs: Labs from last 24 hours 12/28/19 12/28/19 12/27/19 05:05 05:05 20:40 WBC 6.7 RBC 2.46 L Hgb 8.2 L Hct 25.0 L MCV 101.6 H MCH 33.3 MCHC 32.8 RDW 16.6 H Plt Count 123 L MPV 10.9 H Gran % 81.5 H Lymph % (Auto) 11.5 L Baldwin % (Auto) 6.6 Eos % (Auto) 0.4 Baso % (Auto) 0 Gran # 5.45 Lymph # (Auto) 0.77 L Baldwin # (Auto) 0.44 Eos # (Auto) 0.03 Baso # (Auto) 0 VBG Lactic Acid 1.3 Sodium 142 Potassium 2.5 L* Chloride 112 H Carbon Dioxide 18 L Anion Gap 12.0 BUN 20 Creatinine 1.3 H GFR Calculation 37 Glucose 114 H Uric Acid 5.8 Calcium 7.9 L Phosphorus 2.2 L Magnesium 1.4 L Total Bilirubin 0.8 Direct Bilirubin 0.4 H GGT 9 AST 13 ALT 6 Alkaline Phosphatase 49 Lactate Dehydrogenase 153 Troponin T C-Reactive Protein Total Protein 5.1 L Albumin 2.3 L Globulin 2.8 Albumin/Globulin Ratio 0.8 L Triglycerides 81 TSH 12/27/19 12/27/19 12/27/19 20:10 20:10 20:10 WBC RBC Hgb Hct MCV MCH MCHC RDW Plt Count MPV Gran % Lymph % (Auto) Baldwin % (Auto) Eos % (Auto) Baso % (Auto) Gran # Lymph # (Auto) Baldwin # (Auto) Eos # (Auto) Baso # (Auto) VBG Lactic Acid Sodium 140 Potassium 2.6 L* Chloride 107 Carbon Dioxide 17 L Anion Gap 16.0 BUN 23 Creatinine 1.3 H GFR Calculation 37 Glucose 210 H Uric Acid Calcium 9.0 Phosphorus Magnesium Total Bilirubin 1.0 Direct Bilirubin GGT AST 18 ALT 8 Alkaline Phosphatase 61 Lactate Dehydrogenase Troponin T 0.03 C-Reactive Protein 8.3 H Total Protein 6.7 Albumin 3.1 L Globulin 3.6 Albumin/Globulin Ratio 0.9 L Triglycerides TSH 1.71 12/27/19 20:10 WBC 10.0 RBC 3.21 L Hgb 10.6 L Hct 31.9 L MCV 99.4 MCH 33.0 MCHC 33.2 RDW 17.0 H Plt Count 177 MPV 11.1 H Gran % 88.9 H Lymph % (Auto) 5.4 L Baldwin % (Auto) 5.7 Eos % (Auto) 0 Baso % (Auto) 0 Gran # 8.90 H Lymph # (Auto) 0.54 L Baldwin # (Auto) 0.57 Eos # (Auto) 0 Baso # (Auto) 0 VBG Lactic Acid Sodium Potassium Chloride Carbon Dioxide Anion Gap BUN Creatinine GFR Calculation Glucose Uric Acid Calcium Phosphorus Magnesium Total Bilirubin Direct Bilirubin GGT AST ALT Alkaline Phosphatase Lactate Dehydrogenase Troponin T C-Reactive Protein Total Protein Albumin Globulin Albumin/Globulin Ratio Triglycerides TSH A/P Narrative A/P Narrative: * Multifocal bibasilar pneumonia. Start antibiotic coverage. Rule out COVID. * Hypokalemia start aggressive potassium replacement * Low magnesium and phosphorus on replacement * Severe weakness/high risk fall-initiate aggressive PT OT eval and treatments/gait and safety eval and training * Hypertension continue metoprolol * GERD continue PPI * Prophylaxis heparin Plan * Inpatient admission * Antibiotic coverage * Supplemental oxygen * PT OT nutrition support * Aggressive electrolyte replacement including potassium/phosphorus/magnesium * Crystalloids Time Spent With Patient Time: Total time spent is greater than 50% in coordination of care (as documented) at patient's floor/unit and/or counseling patient: QUALITY VTE Deep Vein Thrombosis/Pulmonary Embolism Present on Admission: No
--- NOTE | 2019-12-28 07:42 | XRay Report ---
HISTORY: Increased weakness and shakiness FINDINGS: There is mild consolidation in the basilar segments of both lower lobes along with very small bilateral pleural effusions. These are new since 12/05/19. There is left ventricular prominence. The heart is borderline enlarged. The mid and upper lung lerma are clear. The aorta is tortuous. Scoliosis and arthritis are present in the thoracic and lumbar spine. IMPRESSION: Mild atelectasis or pneumonia in both lung bases. Interpreted and Authenticated by: Luis Madrid 12/28/19
[2019-12-28] MEDS: PANTOPRAZOLE 40 MG TABLET PO SCH ×2 (10:14→17:44)
[2019-12-28] MEDS: METOPROLOL TARTRATE 25 MG TABLET PO SCH ×2 (10:14→21:01)
[2019-12-28] MEDS: MULTIVIT,THER IRON,CA,FA & MIN 1 TABLET PO SCH (10:14)
[2019-12-28] MEDS: DOCUSATE SODIUM 100 MG CAPSULE PO SCH ×2 (10:14→21:01)
[2019-12-28] MEDS: NEUTRA PHOS 1 PACKET PO SCH ×2 (10:15→21:01)
[2019-12-28] MEDS: HEPARIN 5,000 UNIT/ML VIAL SQ SCH ×2 (10:15→21:02)
[2019-12-28] MEDS: LACTATED RINGERS 1,000 ML IV SCH ×2 (10:21→21:02)
[2019-12-28] MEDS: cefTRIAXone 2 GM in DEXTROSE 5% IN WATER 50 ML IV SCH (12:08)
[2019-12-28] MEDS: AZITHROMYCIN 500 MG in DEXTROSE 5% IN WATER 250 ML IV SCH (13:20)
[2019-12-28] MEDS: 0.9 % SODIUM CHLORIDE 10 ML SYRINGE IV SCH ×2 (13:32→21:02)
[2019-12-28] MEDS: SENNOSIDES/DOCUSATE SODIUM 1 TAB TABLET PO SCH (21:02)
[2019-12-28] MEDS: MELATONIN 3 MG TABLET PO PRN (21:02)
[2019-12-29] MEDS: LACTATED RINGERS 1,000 ML IV SCH ×2 (01:51→10:33)
[2019-12-29] MEDS: 0.9 % SODIUM CHLORIDE 10 ML SYRINGE IV SCH ×3 (05:01→21:01)
[2019-12-29 07:12] LABS: Hematocrit 26.1 % (34.1-44.9); Hemoglobin 8.4 g/dL (11.2-15.7); Mean Cell Volume 103.6 fL (80.0-100.0); Mean Corpuscular HGB Conc 32.2 g/dL (31.0-36.0); Mean Platelet Volume 10.9 fL (7.4-10.4); Platelet Count 139 K/mcL (140-440); RBC 2.52 M/mcL (3.59-5.38); Red Cell Distribution Width 16.9 % (11.5-14.5); WBC 4.6 K/mcL (4.50-11.00)
[2019-12-29] MEDS: PANTOPRAZOLE 40 MG TABLET PO SCH ×2 (07:23→17:15)
[2019-12-29 07:38] LABS: ALT/SGPT 6 U/l (0-40); AST/SGOT 14 U/l (0-37); Albumin 2.4 gm/dL (3.2-5.2); Albumin/Globulin Ratio 0.9 (1.0-2.3); Alkaline Phosphatase 51 U/L (39-117); Bilirubin,Total 0.5 mg/dL (0.0-1.0); Blood Urea Nitrogen 18 mg/dl (8-23); Calcium 8.1 mg/dl (8.6-10.4); Carbon Dioxide 18 mmol/L (22-30); Globulin 2.8 gm/dL (2.2-3.7); Glomerular Filtration Rate 37; Glucose 78 mg/dL (70-105); Lactate Dehydrogenase 157 U/L (94-250); Triglycerides 82 mg/dl (<150); Uric Acid 5.5 mg/dL (2.5-8.0)
[2019-12-29 07:41] LABS: Bilirubin,Direct 0.2 mg/dL (0.0-0.3); Chloride 111 mmol/L (96-108); Phosphorous 3.1 mg/dL (2.7-4.5)
[2019-12-29 08:46] LABS: Anisocytosis 1+ (NONE SEEN); Eosinophils % (Manual) 6 % (0-7); Lymphocytes % 17 % (15-49); Macrocytosis 2+ (NONE SEEN); Monocytes % (Manual) 5 % (1-12); Platelet Estimate DECREASED (NORMAL); Polychromasia 1+ (NONE SEEN); RBC Morphology ABNORM (NORMAL); Segmented Neutrophils % 72 % (38-78)
[2019-12-29] MEDS: cefTRIAXone 2 GM in DEXTROSE 5% IN WATER 50 ML IV SCH (09:35)
[2019-12-29] MEDS: METOPROLOL TARTRATE 25 MG TABLET PO SCH ×2 (09:36→21:01)
[2019-12-29] MEDS: MULTIVIT,THER IRON,CA,FA & MIN 1 TABLET PO SCH (09:36)
[2019-12-29] MEDS: HEPARIN 5,000 UNIT/ML VIAL SQ SCH ×2 (09:36→20:59)
[2019-12-29] MEDS: DOCUSATE SODIUM 100 MG CAPSULE PO SCH ×2 (09:37→21:00)
[2019-12-29] MEDS: NEUTRA PHOS 1 PACKET PO SCH ×2 (09:38→21:00)
[2019-12-29] MEDS ORDERED: PNEUMOCOCCAL 23-VAL P-SAC VAC 0.5 ML SYRINGE IM ONE (10:00)
[2019-12-29] MEDS ORDERED: FLU VACC QS2020-21(6MOS UP)/PF 60 MCG/0.5 ML SYRINGE IM ONE (10:00)
[2019-12-29] MEDS: AZITHROMYCIN 500 MG in DEXTROSE 5% IN WATER 250 ML IV SCH (10:38)
--- NOTE | 2019-12-29 11:50 | Internal Med Progress Note ---
SUBJECTIVE Subjective Patient information: Note initiated : 12/29/19 at 11:47 am Service Date, if different from initiated Date: [] Patient: Belle Celaya a 89 y/o F admitted on 12/28/19 for weakness. Chief Complaint: History of present illness: Ms. Celaya is a 89 year old F with a history of hy pertension who lives with her son and daughter. She presents to the ER along with her son Pernell due to gradually progressive weakness limiting her activities of daily living. She sustained a fall roughly 6 days ago spraining her ankle. Since then she has gone downhill with limited mobility, lack of appetite, worsening effort tolerance, malaise and multiple episodes of incontinence. She has been followed by nursing caregiver taking care of coccyx ulcer. With increasing concerns family brought to the ER for further evaluation. Initial work-up was consistent with basilar pneumonia on chest imaging, volume depletion/severe hypokalemia with potassium 2.6 patient received 60 mg of potassium in the ER. X-ray ankle unremarkable. subsequently hospitalist service was consulted. At the time of evaluation patient is alert and able to answer most questions. She however endorses to above symptoms increasing fatigue weakness. She endorses to fall few days ago. She complains of persistent right shoulder pain. Denies fever, chest pain, productive cough. 12/28-patient complains of right ankle and shoulder pain, on antibiotic coverage for multifocal pneumonia. Clinically improving now on room air. Right shoulder imaging to rule out fracture. Continue therapies/nutrition/antibiotic co verage. White count 4.6, hemoglobin 8.4, creatinine 1.3 Constitutional Vitals: Vital Signs Temp Pulse Resp BP Pulse Ox 98.9 F 77 16 159/75 95 12/29/19 11:10 12/29/19 11:10 12/29/19 11:10 12/29/19 11:10 12/29/19 11:10 Period Temp Pulse Resp BP Sys/Sparks Pulse Ox Last 24 Hr 96.4 F-98.9 F 66-77 16-24 118-176/62-77 93-98 Intake and Output 12/28/19 12/29/19 12/29/19 21:59 05:59 13:59 Intake Total 350 1290 450 Output Total 3 1 Balance 347 1289 450 Weight 42.683 kg 42.683 kg Patient Weight 12/30/19 05:59 Weight 42.683 kg Alert and respond to commands Appears distressed from pain Restricted/ROM right shoulder mobility Anxious Intake & Output: Intake & Output 12/28/19 12/29/19 12/29/19 21:59 05:59 13:59 Intake Total 350 1290 450 Output Total 3 1 Balance 347 1289 450 Weight 42.683 kg 42.683 kg Intake: IV 250 1000 300 Zithromax 500 mg In Dextrose 5% 250 250 in Water 250 ml @ 250 mls/hr IV Q24H [facility] Rx#:[id number] Lactated Ringers 1,000 ml @ 75 1000 mls/hr IV .[id number] [facility] Rx#: [id number] Rocephin 2 gm In Dextrose 5% in 50 Water 50 ml @ 100 mls/hr IV Q24H [facility] Rx#:[id number] Oral 100 290 150 Output: # of times incontinent of urine 3 1 Other: Meal Dinner Breakfast Percent of Meal Consumed 50% 50% Feeding Ability Total Assistance Independent Urine Appearance Clear Urine Color Pale Urine Odor Normal Stool Size Moderate Stool Color Brown Brown Stool Consistency Soft Watery Formed Liquid # Voids 1 # of times incontinent of 2 1 Bowels OBJ DATA Labs CBC & Chem 7: 12/29/19 05:20 12/29/19 05:20 Labs: Abnormal Lab Results 12/29/19 12/29/19 12/28/19 05:20 05:20 18:05 RBC 2.52 L Hgb 8.4 L 9.5 L Hct 26.1 L MCV 103.6 H RDW 16.9 H Plt Count 139 L MPV 10.9 H Gran % Lymph % (Auto) Gran # Lymph # (Auto) RBC Morphology Abnorm A Polychromasia 1+ A Anisocytosis 1+ A Macrocytosis 2+ A Potassium Chloride 111 H Carbon Dioxide 18 L Creatinine 1.3 H Glucose Calcium 8.1 L Phosphorus Magnesium Direct Bilirubin C-Reactive Protein Total Protein 5.2 L Albumin 2.4 L Albumin/Globulin Ratio 0.9 L 12/28/19 12/28/19 12/27/19 05:05 05:05 20:10 RBC 2.46 L Hgb 8.2 L Hct 25.0 L MCV 101.6 H RDW 16.6 H Plt Count 123 L MPV 10.9 H Gran % 81.5 H Lymph % (Auto) 11.5 L Gran # Lymph # (Auto) 0.77 L RBC Morphology Polychromasia Anisocytosis Macrocytosis Potassium 2.5 L* Chloride 112 H Carbon Dioxide 18 L Creatinine 1.3 H Glucose 114 H Calcium 7.9 L Phosphorus 2.2 L Magnesium 1.4 L Direct Bilirubin 0.4 H C-Reactive Protein 8.3 H Total Protein 5.1 L Albumin 2.3 L Albumin/Globulin Ratio 0.8 L 12/27/19 12/27/19 20:10 20:10 RBC 3.21 L Hgb 10.6 L Hct 31.9 L MCV RDW 17.0 H Plt Count MPV 11.1 H Gran % 88.9 H Lymph % (Auto) 5.4 L Gran # 8.90 H Lymph # (Auto) 0.54 L RBC Morphology Polychromasia Anisocytosis Macrocytosis Potassium 2.6 L* Chloride Carbon Dioxide 17 L Creatinine 1.3 H Glucose 210 H Calcium Phosphorus Magnesium Direct Bilirubin C-Reactive Protein Total Protein Albumin 3.1 L Albumin/Globulin Ratio 0.9 L Meds: Medications Acetaminophen (Tylenol) 500 mg PO Q4-6HP PRN; Protocol PRN Reason: Per Pain Protocol/Fever > 101 Acetaminophen (Tylenol) 650 mg PO Q4-6HP PRN; Protocol PRN Reason: Per Pain Protocol/Fever > 101 Bisacodyl (Dulcolax) 10 mg UT Q2-3DAYS PRN PRN Reason: Constipation Calcium Chloride (Calcium Chloride) 1,000 mg IV ONCE PRN PRN Reason: CA+ = or < 7.8 Stop: 12/29/19 12:00 Docusate Sodium (Colace) 100 mg PO BID [facility] Last Admin: 12/29/19 09:37 Dose: 100 mg Documented by: Heparin Sodium (Porcine) (Heparin) 5,000 unit SQ Q12 [facility] Last Admin: 12/29/19 09:36 Dose: 5,000 unit Documented by: Hydralazine HCl (Apresoline) 10 mg IV Q4-6HP PRN PRN Reason: Hypertension Acetaminophen (Ofirmev) 650 mg in 65 mls @ 130 mls/hr IV Q6HP PRN; Protocol PRN Reason: Per Pain Protocol/Fever > 101 Potassium Chloride 40 meq/ (Dextrose) 520 mls @ 130 mls/hr IV UD PRN PRN Reason: K+ = or < 3.5 Magnesium Sulfate (Magnesium Sulfate) 2 gm in 50 mls @ 50 mls/hr IV UD PRN PRN Reason: MG = or < 1.7 Last Infusion: 12/28/19 12:10 Dose: Infused Documented by: Lactated Ringer's (Lactated Ringers) 1,000 mls @ 75 mls/hr IV .[id number] [facility] Stop: 12/29/19 23:29 Last Admin: 12/29/19 10:33 Dose: Not Given Documented by: Ceftriaxone Sodium 2 gm/ (Dextrose) 50 mls @ 100 mls/hr IV Q24H [facility]; Protocol Last Infusion: 12/29/19 10:05 Dose: Infused Documented by: Azithromycin 500 mg/ Dextrose 250 mls @ 250 mls/hr IV Q24H [facility]; Protocol Stop: 12/30/19 13:59 Last Infusion: 12/29/19 11:38 Dose: Infused Documented by: Iron Carb/Multivit/[place]/Folic Acid (Multivitamin W/Minerals) 1 tab PO DAILY [facility] Last Admin: 12/29/19 09:36 Dose: 1 tab Documented by: Melatonin (Melatonin 3mg Tablet) 3 mg PO HSP PRN PRN Reason: Insomnia Last Admin: 12/28/19 21:02 Dose: 3 mg Documented by: Metoprolol Tartrate (Lopressor) 12.5 mg PO BID [facility] Last Admin: 12/29/19 09:36 Dose: 12.5 mg Documented by: Metoprolol Tartrate (Lopressor) 5 mg IV Q5M PRN PRN Reason: Heart Rate > 140 bpm Ondansetron HCl (Zofran Odt) 4 mg SL Q4-6HP PRN; Protocol PRN Reason: Nausea And Vomiting Ondansetron HCl (Zofran) 4 mg IV Q4-6HP PRN; Protocol PRN Reason: Nausea And Vomiting Pantoprazole [facility] ([facility]ix) [facility] Last Admin: 12/29/19 07:23 Dose: 40 mg Documented by: Polyethylene Glycol (Miralax) 17 gm PO DAILYP PRN PRN Reason: Constipation Potassium Chloride (Klor-Con) 40 meq PO DAILYP PRN PRN Reason: K+ < 3.5 Last Admin: 12/28/19 10:15 Dose: 40 meq Documented by: Potassium/Phosphorus/Sodium (Neutra Phos) 2 packet PO BID [facility] Last Admin: 12/29/19 09:38 Dose: 2 packet Documented by: Senna/Docusate Sodium (Senna Plus Tablet) 1 tab PO HS [facility] Last Admin: 12/28/19 21:02 Dose: Not Given Documented by: Sodium Chloride (Saline Flush) 10 ml IV Q8 [facility] Last Admin: 12/29/19 05:01 Dose: Not Given Documented by: A/P Narrative A/P Narrative: * Multifocal bibasilar pneumonia. Continue antibiotic coverage. COVID-19 negative. Clinically improving * Right shoulder pain rule out fracture dislocation. Imaging * Hypokalemia resolved with replacement, potassium up to 3.7 * Low magnesium and phosphorus resolved with replacement * Severe weakness/high risk fall-continue aggressive PT OT eval and treatments/gait and safety training * Hypertension continue metoprolol * GERD continue PPI * Prophylaxis heparin Plan * Right shoulder imaging * Continue antibiotic coverage * Therapy/nutrition support * Discharge planning per case management Time Spent With Patient Time: Total time spent is greater than 50% in coordination of care (as documented) at patient's floor/unit and/or counseling patient: QUALITY VTE Deep Vein Thrombosis/Pulmonary Embolism Present on Admission: No
--- NOTE | 2019-12-29 12:34 | XRay Report ---
HISTORY: Right shoulder pain FINDINGS: The humerus is subluxed superiorly and impacted against undersurface of the acromion and AC joint. Axillary view shows narrowing of the glenohumeral joint space. There is no fracture. Bones are osteoporotic. There is mild arthritis with small spurs forming around the lateral border of the humeral head. Allowing for differences in technique there has been little change from prior CT done on 02/06/19. IMPRESSION: Subluxed humeral head which is indirect evidence of a rotator cuff tear Interpreted and Authenticated by: Luis Madrid 12/29/19
[2019-12-29] MEDS: SENNOSIDES/DOCUSATE SODIUM 1 TAB TABLET PO SCH (21:00)
[2019-12-29] MEDS: ACETAMINOPHEN 325 MG TABLET PO PRN (21:00)
[2019-12-29] MEDS: MELATONIN 3 MG TABLET PO PRN (21:01)
[2019-12-30] MEDS: 0.9 % SODIUM CHLORIDE 10 ML SYRINGE IV SCH ×3 (04:20→23:53)
[2019-12-30] MEDS: ACETAMINOPHEN 325 MG TABLET PO PRN ×3 (04:44→23:05)
[2019-12-30 06:43] LABS: Hematocrit 26.1 % (34.1-44.9); Hemoglobin 8.2 g/dL (11.2-15.7); Mean Corpuscular HGB Conc 31.4 g/dL (31.0-36.0); Mean Platelet Volume 10.9 fL (7.4-10.4); Platelet Count 146 K/mcL (140-440); RBC 2.51 M/mcL (3.59-5.38); Red Cell Distribution Width 16.6 % (11.5-14.5); WBC 4.6 K/mcL (4.50-11.00)
[2019-12-30 07:06] LABS: ALT/SGPT 6 U/l (0-40); AST/SGOT 15 U/l (0-37); Albumin 2.2 gm/dL (3.2-5.2); Albumin/Globulin Ratio 0.8 (1.0-2.3); Alkaline Phosphatase 52 U/L (39-117); Bilirubin,Total 0.2 mg/dL (0.0-1.0); Blood Urea Nitrogen 20 mg/dl (8-23); Calcium 8.2 mg/dl (8.6-10.4); Carbon Dioxide 20 mmol/L (22-30); Globulin 2.9 gm/dL (2.2-3.7); Glomerular Filtration Rate 34; Glucose 82 mg/dL (70-105); Lactate Dehydrogenase 164 U/L (94-250); Phosphorous 4.1 mg/dL (2.7-4.5); Triglycerides 76 mg/dl (<150); Uric Acid 5.5 mg/dL (2.5-8.0)
[2019-12-30 07:16] LABS: Bilirubin,Direct < 0.2 mg/dL (0.0-0.3); Chloride 110 mmol/L (96-108)
[2019-12-30 08:26] LABS: Anisocytosis 2+ (NONE SEEN); Eosinophils % (Manual) 3 % (0-7); Lymphocytes % 12 % (15-49); Macrocytosis 1+ (NONE SEEN); Monocytes % (Manual) 3 % (1-12); Platelet Estimate NORMAL (NORMAL); RBC Morphology ABNORM (NORMAL); Segmented Neutrophils % 82 % (38-78)
[2019-12-30] MEDS: cefTRIAXone 2 GM in DEXTROSE 5% IN WATER 50 ML IV SCH (09:00)
[2019-12-30] MEDS ORDERED: AZITHROMYCIN 250 MG TABLET PO ONE (09:15)
[2019-12-30] MEDS ORDERED: cefTRIAXone 2 GM VIAL IM ONE (09:30)
[2019-12-30] MEDS: PANTOPRAZOLE 40 MG TABLET PO SCH ×2 (09:46→17:33)
[2019-12-30] MEDS: MULTIVIT,THER IRON,CA,FA & MIN 1 TABLET PO SCH (09:46)
[2019-12-30] MEDS: DOCUSATE SODIUM 100 MG CAPSULE PO SCH ×2 (09:46→21:32)
[2019-12-30] MEDS: METOPROLOL TARTRATE 25 MG TABLET PO SCH ×3 (09:47→19:05)
--- NOTE | 2019-12-30 09:48 | Internal Med Progress Note ---
SUBJECTIVE Subjective Patient information: Note initiated : 12/30/19 at 9:42 am Service Date, if different from initiated Date: [] Patient: Belle Celaya a 89 y/o F admitted on 12/28/19 for weakness. Chief Complaint: History of present illness: Ms. Celaya is a 89 year old F with a history of hypertension who lives with her son and daughter. She presents to the ER along with her son Pernell due to gradually progressive weakness limiting her activities of daily living. She sustained a fall roughly 6 days ago spraining her ankle. Since then she has gone downhill with limited mobility, lack of appetite, worsening effort tolerance, malaise and multiple episodes of incontinence. She has been followed by nursing caregiver taking care of coccyx ulcer. With increasing concerns family brought to the ER for further evaluation. Initial work-up was consistent with basilar pneumonia on chest imaging, volume depletion/severe hypokalemia with potassium 2.6 patient received 60 mg of potassium in the ER. X-ray ankle unremarkable. subsequently hospitalist service was consulted. At the time of evaluation patient is alert and able to answer most questions. She however endorses to above symptoms increasing fatigue weakness. She endorses to fall few days ago. She complains of persistent right shoulder pain. Denies fever, chest pain, productive cough. 12/28-patient complains of right ankle and shoulder pain, on antibiotic coverage for multifocal pneumonia. Clinically improving now on room air. Right shoulder imaging to rule out fracture. Continue therapies/nutrition/antibiotic [place]. White count 4.6, hemoglobin 8.4, creatinine 1.3 12/29-patient currently on room air however interval chest imaging worsening left-sided effusion/infiltrate. On antibiotic coverage. Subluxation left shoulder, case discussed with orthopedics. Consult ordered. May benefit from steroid shot. Continue antibiotic coverage. Continue PT OT. Constitutional Vitals: Vital Signs Temp Pulse Resp BP Pulse Ox 98.6 F 64 16 162/70 94 12/30/19 07:33 12/30/19 07:33 12/30/19 07:33 12/30/19 07:33 12/30/19 07:33 Period Temp Pulse Resp BP Sys/Sparks Pulse Ox Last 24 Hr 97.5 F-98.9 F 64-77 16-18 143-162/64-78 91-96 Intake and Output 0912/30/19 12/30/19 21:59 05:59 13:59 Intake Total 1999 200 Output Total 3 Balance 1996 200 Weight 45.087 kg resting comfortably On room air Persistent right shoulder pain No overnight fever chills Intake & Output: Intake & Output 12/29/19 12/30/19 12/30/19 21:59 05:59 13:59 Intake Total 1999 200 Output Total 3 Balance 1996 200 Weight 45.087 kg Intake: IV 1999 Sodium Chloride 0.9% 1,000 ml @ 1000 75 mls/hr IV .[id number] [facility] Rx#: [id number] Lactated Ringers 1,000 ml @ 75 1000 mls/hr IV .[id number] [facility] Rx#: [id number] Oral 200 Output: # of times incontinent of urine 3 Other: # of times incontinent of 1 Bowels OBJ DATA Labs CBC & Chem 7: 12/30/19 05:35 12/30/19 05:35 Labs: Abnormal Lab Results 12/30/19 12/30/19 12/29/19 05:35 05:35 05:20 RBC 2.51 L Hgb 8.2 L Hct 26.1 L MCV 104.0 H RDW 16.6 H Plt Count MPV 10.9 H Gran % Lymph % (Auto) Gran # Lymph # (Auto) Seg Neutrophils % 82 H Lymphocytes % 12 L RBC Morphology Abnorm A Polychromasia Anisocytosis 2+ A Macrocytosis 1+ A Potassium Chloride 110 H 111 H Carbon Dioxide 20 L 18 L Creatinine 1.4 H 1.3 H Glucose Calcium 8.2 L 8.1 L Phosphorus Magnesium Direct Bilirubin C-Reactive Protein Total Protein 5.1 L 5.2 L Albumin 2.2 L 2.4 L Albumin/Globulin Ratio 0.8 L 0.9 L 12/29/19 12/28/19 12/28/19 05:20 18:05 05:05 RBC 2.52 L Hgb 8.4 L 9.5 L Hct 26.1 L MCV 103.6 H RDW 16.9 H Plt Count 139 L MPV 10.9 H Gran % Lymph % (Auto) Gran # Lymph # (Auto) Seg Neutrophils % Lymphocytes % RBC Morphology Abnorm A Polychromasia 1+ A Anisocytosis 1+ A Macrocytosis 2+ A Potassium 2.5 L* Chloride 112 H Carbon Dioxide 18 L Creatinine 1.3 H Glucose 114 H Calcium 7.9 L Phosphorus 2.2 L Magnesium 1.4 L Direct Bilirubin 0.4 H C-Reactive Protein Total Protein 5.1 L Albumin 2.3 L Albumin/Globulin Ratio 0.8 L 12/28/19 12/27/19 12/27/19 05:05 20:10 20:10 RBC 2.46 L Hgb 8.2 L Hct 25.0 L MCV 101.6 H RDW 16.6 H Plt Count 123 L MPV 10.9 H Gran % 81.5 H Lymph % (Auto) 11.5 L Gran # Lymph # (Auto) 0.77 L Seg Neutrophils % Lymphocytes % RBC Morphology Polychromasia Anisocytosis Macrocytosis Potassium 2.6 L* Chloride Carbon Dioxide 17 L Creatinine 1.3 H Glucose 210 H Calcium Phosphorus Magnesium Direct Bilirubin C-Reactive Protein 8.3 H Total Protein Albumin 3.1 L Albumin/Globulin Ratio 0.9 L 12/27/19 20:10 RBC 3.21 L Hgb 10.6 L Hct 31.9 L MCV RDW 17.0 H Plt Count MPV 11.1 H Gran % 88.9 H Lymph % (Auto) 5.4 L Gran # 8.90 H Lymph # (Auto) 0.54 L Seg Neutrophils % Lymphocytes % RBC Morphology Polychromasia Anisocytosis Macrocytosis Potassium Chloride Carbon Dioxide Creatinine Glucose Calcium Phosphorus Magnesium Direct Bilirubin C-Reactive Protein Total Protein Albumin Albumin/Globulin Ratio Meds: Medications Acetaminophen (Tylenol) 500 mg PO Q4-6HP PRN; Protocol PRN Reason: Per Pain Protocol/Fever > 101 Acetaminophen (Tylenol) 650 mg PO Q4-6HP PRN; Protocol PRN Reason: Per Pain Protocol/Fever > 101 Last Admin: 12/30/19 04:44 Dose: 650 mg Documented by: Bisacodyl (Dulcolax) 10 mg SC Q2-3DAYS PRN PRN Reason: Constipation Docusate Sodium (Colace) 100 mg PO BID [facility] Last Admin: 12/29/19 21:00 Dose: Not Given Documented by: Heparin Sodium (Porcine) (Heparin) 5,000 unit SQ Q12 [facility] Last Admin: 12/29/19 20:59 Dose: 5,000 unit Documented by: Hydralazine HCl (Apresoline) 10 mg IV Q4-6HP PRN PRN Reason: Hypertension Acetaminophen (Ofirmev) 650 mg in 65 mls @ 130 mls/hr IV Q6HP PRN; Protocol PRN Reason: Per Pain Protocol/Fever > 101 Last Infusion: 12/29/19 12:55 Dose: Infused Documented by: Potassium Chloride 40 meq/ (Dextrose) 520 mls @ 130 mls/hr IV UD PRN PRN Reason: K+ = or < 3.5 Magnesium Sulfate (Magnesium Sulfate) 2 gm in 50 mls @ 50 mls/hr IV UD PRN PRN Reason: MG = or < 1.7 Last Infusion: 12/28/19 12:10 Dose: Infused Documented by: Iron Carb/Multivit/[place]/Folic Acid (Multivitamin W/Minerals) 1 tab PO DAILY [facility] Last Admin: 12/29/19 09:36 Dose: 1 tab Documented by: Melatonin (Melatonin 3mg Tablet) 3 mg PO HSP PRN PRN Reason: Insomnia Last Admin: 12/29/19 21:01 Dose: 3 mg Documented by: Metoprolol Tartrate (Lopressor) 12.5 mg PO BID [facility] Last Admin: 12/29/19 21:01 Dose: 12.5 mg Documented by: Metoprolol Tartrate (Lopressor) 5 mg IV Q5M PRN PRN Reason: Heart Rate > 140 bpm Ondansetron HCl (Zofran Odt) 4 mg SL Q4-6HP PRN; Protocol PRN Reason: Nausea And Vomiting Ondansetron HCl (Zofran) 4 mg IV Q4-6HP PRN; Protocol PRN Reason: Nausea And Vomiting Last Admin: 12/29/19 12:22 Dose: 4 mg Documented by: Pantoprazole Sodium (Protonix) 40 mg PO BIDAC [facility] Last Admin: 12/29/19 17:15 Dose: 40 mg Documented by: Polyethylene Glycol (Miralax) 17 gm PO DAILYP PRN PRN Reason: Constipation Potassium Chloride (Klor-Con) 40 meq PO DAILYP PRN PRN Reason: K+ < 3.5 Last Admin: 12/28/19 10:15 Dose: 40 meq Documented by: Potassium/Phosphorus/Sodium (Neutra Phos) 2 packet PO BID [facility] Last Admin: 12/29/19 21:00 Dose: 2 packet Documented by: Senna/Docusate Sodium (Senna Plus Tablet) 1 tab PO HS [facility] Last Admin: 12/29/19 21:00 Dose: Not Given Documented by: Sodium Chloride (Saline Flush) 10 ml IV Q8 [facility] Last Admin: 12/30/19 04:20 Dose: Not Given Documented by: A/P Narrative A/P Narrative: * Multifocal bibasilar pneumonia. Ongoing antibiotic coverage. COVID-19 negative. Clinically improving, on room air however radiology deterioration noted * Right shoulder pain -subluxation noted on imaging. Orthopedic consulted * Hypokalemia resolved with replacement, potassium up to 3.7 * Low magnesium and phosphorus resolved with replacement * Severe weakness/high risk fall-continue aggressive PT OT eval and treatments/gait and safety training * Hypertension continue metoprolol * GERD continue PPI * Prophylaxis heparin Plan * Continue antibiotic coverage * Orthopedic consult * RT assisted deep breathing exercise/CoughAssist * Therapy/nutrition support * Discharge planning per case management Time Spent With Patient Time: Total time spent is greater than 50% in coordination of care (as documented) at patient's floor/unit and/or counseling patient: QUALITY VTE Deep Vein Thrombosis/Pulmonary Embolism Present on Admission: No
[2019-12-30] MEDS: HEPARIN 5,000 UNIT/ML VIAL SQ SCH ×2 (09:50→21:32)
[2019-12-30] MEDS: NEUTRA PHOS 1 PACKET PO SCH ×2 (09:54→21:32)
[2019-12-30] MEDS ORDERED: TRIAMCINOLONE ACETONIDE 40 MG/ML VIAL ONE (10:00)
[2019-12-30] MEDS ORDERED: LIDOCAINE IJ ONE ×2 (10:00→13:00)
--- NOTE | 2019-12-30 10:39 | XRay Report ---
HISTORY: Follow-up pulmonary infiltrates and pleural effusions FINDINGS: There is a densely consolidating infiltrate in the left lung with the greatest consolidation in the lower lobe and inferior portion lingula. There is moderate consolidation in the right lower lobe. Increased interstitial lung markings are seen in both upper lobes. There may be small bilateral pleural effusions. The heart is enlarged but partially obscured by superimposed consolidated lung parenchyma. There is a radiolucent line laterally in the left upper thorax. This is more likely skin fold artifact than a pneumothorax. Indirect evidence of bilateral rotator cuff tears is present with superior subluxation of the humeral heads. IMPRESSION: Severe pneumonia or atelectasis throughout most of the left lung with moderate consolidation in the right lower lobe Interpreted and Authenticated by: Luis Madrid 12/30/19
[2019-12-30] MEDS ORDERED: TRIAMCINOLONE IJ ONE (13:00)
[2019-12-30] MEDS ORDERED: LIDOCAINE 5 GM CREAM.TOP TOPICAL ONE (13:08)
--- NOTE | 2019-12-30 14:29 | Procedure Note ---
DATE OF PROCEDURE: 12/30/2019 REQUESTING PROVIDER: Fadi Haji M.D. REASON FOR CONSULTATION: Right shoulder pain. HISTORY OF PRESENT ILLNESS: The patient is an 89-year-old female with a history of right shoulder osteoarthritis and chronic right shoulder pain. She is currently inpatient at [facility] being treated for basilar pneumonia, as well as other comorbidities. The patient has been previously evaluated in our clinic for ongoing right shoulder pain and has been receiving steroid injections which help her pain per pt. She states the last injection helped her pain up until approximately one month ago. She admits to pain in the right shoulder. She denies any numbness or tingling or recent trauma to the shoulder. ALLERGIES: 1. AZITHROMYCIN. 2. OMEPRAZOLE. 3. PENICILLIN. 4. MUKHERJEE. MEDICATIONS: See inpatient medications for complete list: reported home medications include: 1. Metoprolol tartrate 25 mg tabs 12.5 mg p.o. b.i.d. 2. Pantoprazole 40 mg tabs 40 mg p.o. b.i.d. a.c. PHYSICAL EXAMINATION: VITALS: Temperature 98.6, pulse 64, respirations 16, blood pressure 162/70, pulse ox 94. GENERAL: The patient is a well-developed, elderly female. She is alert, oriented, interactive, and appropriate. Her son is present in the exam room. EXTREMITIES: The right shoulder skin is intact, symmetric in appearance. No notable deformity. She has mild tenderness to palpation over the AC joint, as well as the biceps tendon, coracoid, and about the edge of the acromion. Active range of motion is limited by pain. She has forward flexion to approximately 85 degrees, abduction to approximately 30 degrees, and external rotation to approximately 20 degrees with pain at endpoints of motion. She does have audible/palpable crepitus with motion. She has significant weakness with resisted external rotation at 0 degrees abduction. ROM limits the following exam however she has does have a positive cross body adduction test, positive Garvey test, pain with Speed's test, positive empty can. Pain and weakness noted with initiation of abduction. She has full range of motion at the elbow, wrist, and hand. No tenderness noted to palpation about the rest of the right upper extremity. Sensation is intact distally with a well-perfused hand. DIAGNOSTIC STUDIES: A right shoulder radiographic series demonstrates a subluxed humeral head with indirect evidence of a rotator cuff tear. There is no evidence of acute fracture. Bones are osteoporotic. Mild arthritis with small spurs forming on the lateral border of the humeral head and axillary view shows narrowing of the glenohumeral joint space. The humerus is subluxed superiorly and impacted against the undersurface of the acromion and the AC joint. ASSESSMENT AND PLAN: The patient is an 89-year-old female with right shoulder osteoarthritis. Per pr she has received prior steroid injections routinely, approximately every [address] Azevedo with some relief. She would like another one of these injections today. She would like to proceed with the injection. The correct site was identified. Verbal consent was obtained for the procedure. DESCRIPTION OF PROCEDURE: The site was verified with the patient. The shoulder was prepped with Betadine just superior and lateral to the coracoid process and 6 mL of 1% Xylocaine without epinephrine and 2 mL of 40 mg per mL of Kenalog was injected into the right shoulder joint without complication. A Band-Aid was placed and the shoulder was taken through range of motion. Postinjection counseling was performed and the patient tolerated the procedure well. We will have her follow up on an as-needed basis as an outpatient with our clinic in the future for recurrent shoulder pain as needed. I did discuss the pathophysiology of the condition and its natural course as well as treatment options. She is aware that she is not an ideal surgical candidate and that injection therapy is the most reasonable continued option as a total shoulder replacement is a major elective surgery. She understands this as well as understands the plan and agrees and her questions were answered. GERALD:miryam Job ID: [id number] Doc ID: [id number] Madan LANDRY
[2019-12-30] MEDS: SENNOSIDES/DOCUSATE SODIUM 1 TAB TABLET PO SCH (21:32)
[2019-12-30] MEDS: MELATONIN 3 MG TABLET PO PRN (21:32)
[2019-12-30] MEDS: amLODIPine 5 MG TABLET PO SCH (21:32)
[2019-12-30] MEDS: hydrALAZINE 10 MG TABLET PO PRN (23:06)
[2019-12-31] MEDS: SUCRALFATE 1 GM TABLET PO SCH ×2 (01:15→21:53)
[2019-12-31] MEDS: METOPROLOL TARTRATE 25 MG TABLET PO SCH ×3 (01:18→21:53)
[2019-12-31] MEDS: 0.9 % SODIUM CHLORIDE 10 ML SYRINGE IV SCH ×4 (06:14→22:03)
[2019-12-31 08:57] LABS: Hematocrit 28.1 % (34.1-44.9); Hemoglobin 8.8 g/dL (11.2-15.7); Mean Cell Volume 104.9 fL (80.0-100.0); Mean Corpuscular HGB Conc 31.3 g/dL (31.0-36.0); Mean Platelet Volume 10.9 fL (7.4-10.4); Platelet Count 142 K/mcL (140-440); RBC 2.68 M/mcL (3.59-5.38); Red Cell Distribution Width 16.2 % (11.5-14.5); WBC 1.9 K/mcL (4.50-11.00)
[2019-12-31] MEDS: NEUTRA PHOS 1 PACKET PO SCH ×2 (09:00→21:53)
[2019-12-31] MEDS: PANTOPRAZOLE 40 MG TABLET PO SCH ×2 (09:03→17:39)
[2019-12-31] MEDS: amLODIPine 5 MG TABLET PO SCH (09:03)
[2019-12-31] MEDS: MULTIVIT,THER IRON,CA,FA & MIN 1 TABLET PO SCH (09:03)
[2019-12-31] MEDS: DOCUSATE SODIUM 100 MG CAPSULE PO SCH ×2 (09:04→21:53)
[2019-12-31] MEDS: HEPARIN 5,000 UNIT/ML VIAL SQ SCH ×2 (09:10→21:53)
[2019-12-31 09:18] LABS: ALT/SGPT 6 U/l (0-40); AST/SGOT 14 U/l (0-37); Albumin 2.1 gm/dL (3.2-5.2); Albumin/Globulin Ratio 0.7 (1.0-2.3); Alkaline Phosphatase 53 U/L (39-117); Bilirubin,Direct < 0.2 mg/dL (0.0-0.3); Bilirubin,Total 0.2 mg/dL (0.0-1.0); Calcium 8.2 mg/dl (8.6-10.4); Carbon Dioxide 18 mmol/L (22-30); Globulin 3.2 gm/dL (2.2-3.7); Glomerular Filtration Rate 29; Glucose 169 mg/dL (70-105); Lactate Dehydrogenase 160 U/L (94-250); Triglycerides 65 mg/dl (<150); Uric Acid 5.8 mg/dL (2.5-8.0)
[2019-12-31 09:57] LABS: Blood Urea Nitrogen 25 mg/dl (8-23); Chloride 110 mmol/L (96-108); Phosphorous 5.2 mg/dL (2.7-4.5)
[2019-12-31 11:56] LABS: Anisocytosis 1+ (NONE SEEN); Lymphocytes % 12 % (15-49); Macrocytosis 1+ (NONE SEEN); Monocytes % (Manual) 1 % (1-12); Platelet Estimate NORMAL (NORMAL); Poikilocytosis FEW (NONE SEEN); RBC Fragments RARE (NONE SEEN); RBC Morphology ABNORM (NORMAL); Segmented Neutrophils % 87 % (38-78); Tear Drop Cells FEW (NONE SEEN)
--- NOTE | 2019-12-31 17:19 | Internal Med Progress Note ---
SUBJECTIVE Subjective Patient information: Note initiated : 12/31/19 at 5:15 pm Service Date, if different from initiated Date: [] Patient: Belle Celaya a 89 y/o F admitted on 12/28/19 for weakness. Chief Complaint: [] History of present illness: Ms. Celaya is a 89 year old F with a history of hypertension who lives with her son and daughter. She presents to the ER along with her son Pernell due to gradually progressive weakness limiting her activities of daily living. She sustained a fall roughly 6 days ago spraining her ankle. Since then she has gone downhill with limited mobility, lack of appetite, worsening effort tolerance, malaise and multiple episodes of incontinence. She has been followed by nursing caregiver taking care of coccyx ulcer. With increasing concerns family brought to the ER for further evaluation. Initial work-up was consistent with basilar pneumonia on chest imaging, volume depletion/severe hypokalemia with potassium 2.6 patient received 60 mg of potassium in the ER. X-ray ankle unremarkable. subsequently hospitalist service was consulted. At the time of evaluation patient is alert and able to answer most questions. She however endorses to above symptoms increasing fatigue weakness. She endorses to fall few days ago. She complains of persistent right shoulder pain. Denies fever, chest pain, productive cough. 12/28-patient complains of right ankle and shoulder pain, on antibiotic coverage for multifocal pneumonia. Clinically improving now on room air. Right shoulder imaging to rule out fracture. Continue therapies/nutrition/antibiotic coverage. White count 4.6, hemoglobin 8.4, creatinine 1.3 12/29-patient currently on room air however interval chest imaging worsening left-sided effusion/infiltrate. On antibiotic coverage. Subluxation left shoulder, case discussed with orthopedics. Consult ordered. May benefit from steroid shot. Continue antibiotic coverage. Continue PT OT. 12/30 Patient does not have any new complaints. Denies fever, chills, nausea or vomiting. Blood pressure is not well controlled. Patient refused IV access. Oral blood pressure medication was adjusted. Oxygen saturation is fine on room air. She will be possibly discharged home tomorrow (patient refused SNF. She has a home health services already.) ROS: Positive for body pain. All other systems were reviewed and negative. Constitutional Vitals: Vital Signs Temp Pulse Resp BP Pulse Ox 98.7 F 71 16 171/71 96 12/31/19 16:00 12/31/19 16:00 12/31/19 16:00 12/31/19 16:00 12/31/19 16:00 Period Temp Pulse Resp BP Sys/Sparks Pulse Ox Last 24 Hr 97.5 F-99.8 F 62-84 16-20 149-179/68-80 92-96 Intake and Output 12/31/19 12/31/19 12/31/19 05:59 13:59 21:59 Intake Total 100 118 Output Total 3 Balance 97 118 Intake & Output: Intake & Output 12/31/19 12/31/19 12/31/19 05:59 13:59 21:59 Intake Total 100 118 Output Total 3 Balance 97 118 Intake: Oral 100 118 Output: # of times incontinent of urine 3 Additional findings Additional findings: General -no acute distress Eyes - PERRLA, EOM intact ENT no rhinorrhea, no noticeable or palpable swelling, no redness or rash around throat or on face Neck supple, no JVD, no thyromegaly Respiratory: Lungs - diminshed BS, no use of accessory muscles Cardiovascular - RRR no m/r/g, GI - Normal bowel sounds, no distended, soft. Extremeties - No edema, cyanosis or clubbing Hemo/lymphatic/immune no lymphadenopathy Neurological Alert and oriented x 3, no focal neurological deficits. Psychiatry flat affect OBJ DATA Labs CBC & Chem 7: 12/31/19 05:40 12/31/19 05:40 Labs: Abnormal Lab Results 12/31/19 12/31/19 12/30/19 05:40 05:40 05:35 WBC 1.9 L RBC 2.68 L Hgb 8.8 L Hct 28.1 L MCV 104.9 H RDW 16.2 H Plt Count MPV 10.9 H Seg Neutrophils % 87 H Lymphocytes % 12 L RBC Morphology Abnorm A Polychromasia Poikilocytosis Few A Anisocytosis 1+ A Macrocytosis 1+ A Tear Drop Cells Few A RBC Fragments Rare A Chloride 110 H 110 H Carbon Dioxide 18 L 20 L BUN 25 H Creatinine 1.6 H 1.4 H Glucose 169 H Calcium 8.2 L 8.2 L Phosphorus 5.2 H Total Protein 5.3 L 5.1 L Albumin 2.1 L 2.2 L Albumin/Globulin Ratio 0.7 L 0.8 L 12/30/19 12/29/19 12/29/19 05:35 05:20 05:20 WBC RBC 2.51 L 2.52 L Hgb 8.2 L 8.4 L Hct 26.1 L 26.1 L MCV 104.0 H 103.6 H RDW 16.6 H 16.9 H Plt Count 139 L MPV 10.9 H 10.9 H Seg Neutrophils % 82 H Lymphocytes % 12 L RBC Morphology Abnorm A Abnorm A Polychromasia 1+ A Poikilocytosis Anisocytosis 2+ A 1+ A Macrocytosis 1+ A 2+ A Tear Drop Cells RBC Fragments Chloride 111 H Carbon Dioxide 18 L BUN Creatinine 1.3 H Glucose Calcium 8.1 L Phosphorus Total Protein 5.2 L Albumin 2.4 L Albumin/Globulin Ratio 0.9 L 12/28/19 18:05 WBC RBC Hgb 9.5 L Hct MCV RDW Plt Count MPV Seg Neutrophils % Lymphocytes % RBC Morphology Polychromasia Poikilocytosis Anisocytosis Macrocytosis Tear Drop Cells RBC Fragments Chloride Carbon Dioxide BUN Creatinine Glucose Calcium Phosphorus Total Protein Albumin Albumin/Globulin Ratio Meds: Medications Acetaminophen (Tylenol) 650 mg PO Q4-6HP PRN; Protocol PRN Reason: Per Pain Protocol/Fever > 101 Last Admin: 12/30/19 23:05 Dose: 650 mg Documented by: Amlodipine Besylate (Norvasc) 5 mg PO DAILY [facility] Last Admin: 12/31/19 09:03 Dose: 5 mg Documented by: Bisacodyl (Dulcolax) 10 mg [place] Q2-3DAYS PRN PRN Reason: Constipation Docusate Sodium (Colace) 100 mg PO BID [facility] Last Admin: 12/31/19 09:04 Dose: 100 mg Documented by: Heparin Sodium (Porcine) (Heparin) 5,000 unit SQ Q12 [facility] Last Admin: 12/31/19 09:10 Dose: 5,000 unit Documented by: Hydralazine HCl (Apresoline) 10 mg IV Q4-6HP PRN PRN Reason: Hypertension Hydralazine HCl (Apresoline) 10 mg PO QIDP PRN PRN Reason: Hypertension Last Admin: 12/30/19 23:06 Dose: 10 mg Documented by: Acetaminophen (Ofirmev) 650 mg in 65 mls @ 130 mls/hr IV Q6HP PRN; Protocol PRN Reason: Per Pain Protocol/Fever > 101 Last Infusion: 12/29/19 12:55 Dose: Infused Documented by: Potassium Chloride 40 meq/ (Dextrose) 520 mls @ 130 mls/hr IV UD PRN PRN Reason: K+ = or < 3.5 Magnesium Sulfate (Magnesium Sulfate) 2 gm in 50 mls @ 50 mls/hr IV UD PRN PRN Reason: MG = or < 1.7 Last Infusion: 12/28/19 12:10 Dose: Infused Documented by: Iron Carb/Multivit/[place]/Folic Acid (Multivitamin W/Minerals) 1 tab PO DAILY [facility] Last Admin: 12/31/19 09:03 Dose: 1 tab Documented by: Melatonin (Melatonin 3mg Tablet) 3 mg PO HSP PRN PRN Reason: Insomnia Last Admin: 12/30/19 21:32 Dose: 3 mg Documented by: Metoprolol Tartrate (Lopressor) 5 mg IV Q5M PRN PRN Reason: Heart Rate > 140 bpm Metoprolol Tartrate (Lopressor) 25 mg PO BID [facility] Last Admin: 12/31/19 09:03 Dose: 25 mg Documented by: Ondansetron HCl (Zofran Odt) 4 mg SL Q4-6HP PRN; Protocol PRN Reason: Nausea And Vomiting Ondansetron HCl (Zofran) 4 mg IV Q4-6HP PRN; Protocol PRN Reason: Nausea And Vomiting Last Admin: 12/29/19 12:22 Dose: 4 mg Documented by: Pantoprazole Sodium (Protonix) 40 mg PO BIDAC [facility] Last Admin: 12/31/19 09:03 Dose: 40 mg Documented by: Polyethylene Glycol (Miralax) 17 gm PO DAILYP PRN PRN Reason: Constipation Potassium Chloride (Klor-Con) 40 meq PO DAILYP PRN PRN Reason: K+ < 3.5 Last Admin: 12/28/19 10:15 Dose: 40 meq Documented by: Potassium/Phosphorus/Sodium (Neutra Phos) 2 packet PO BID [facility] Last Admin: 12/31/19 09:00 Dose: 2 packet Documented by: Senna/Docusate Sodium (Senna Plus Tablet) 1 tab PO HS [facility] Last Admin: 12/30/19 21:32 Dose: 1 tab Documented by: Sodium Chloride (Saline Flush) 10 ml IV Q8 [facility] Last Admin: 12/31/19 13:30 Dose: Not Given Documented by: Sucralfate (Carafate) 1 gm PO HS [facility] Last Admin: 12/31/19 01:15 Dose: Not Given Documented by: A/P Narrative A/P Narrative: 1. Multifocal bibasilar pneumonia. Ongoing antibiotic coverage. COVID-19 negative. Clinically improving, on room air however radiology deterioration n oted 2. Right shoulder pain -subluxation noted on imaging. Orthopedic consulted 3. Hypokalemia resolved with replacement 4. Low magnesium and phosphorus resolved with replacement 5. Severe weakness/high risk fall-continue aggressive PT OT eval and treatments/gait and safety training 6. Hypertension continue metoprolol and added amlodipine 7. GERD continue PPI 8. Prophylaxis heparin Plan Continue antibiotic coverage Orthopedic consult RT assisted deep breathing exercise/CoughAssist Therapy/nutrition support Discharge planning per case management Time Spent With Patient Time: Total time spent is greater than 50% in coordination of care (as documented) at patient's floor/unit and/or counseling patient: QUALITY VTE Deep Vein Thrombosis/Pulmonary Embolism Present on Admission: No
[2019-12-31] MEDS: SENNOSIDES/DOCUSATE SODIUM 1 TAB TABLET PO SCH (21:53)
[2020-01-01] MEDS: 0.9 % SODIUM CHLORIDE 10 ML SYRINGE IV SCH ×3 (05:21→20:49)
[2020-01-01 08:27] LABS: ALT/SGPT 8 U/l (0-40); AST/SGOT 15 U/l (0-37); Albumin 2.3 gm/dL (3.2-5.2); Albumin/Globulin Ratio 0.7 (1.0-2.3); Alkaline Phosphatase 51 U/L (39-117); Bilirubin,Direct < 0.2 mg/dL (0.0-0.3); Bilirubin,Total < 0.2 mg/dL (0.0-1.0); Calcium 8.2 mg/dl (8.6-10.4); Carbon Dioxide 19 mmol/L (22-30); Globulin 3.1 gm/dL (2.2-3.7); Glomerular Filtration Rate 27; Glucose 171 mg/dL (70-105); Hematocrit 27.4 % (34.1-44.9); Hemoglobin 8.5 g/dL (11.2-15.7); Lactate Dehydrogenase 148 U/L (94-250); Mean Platelet Volume 10.9 fL (7.4-10.4); Phosphorous 5.5 mg/dL (2.7-4.5); Platelet Count 157 K/mcL (140-440); RBC 2.61 M/mcL (3.59-5.38); Red Cell Distribution Width 16.5 % (11.5-14.5); Triglycerides 126 mg/dl (<150); Uric Acid 6.3 mg/dL (2.5-8.0); WBC 4.3 K/mcL (4.50-11.00)
[2020-01-01 08:41] LABS: Blood Urea Nitrogen 33 mg/dl (8-23); Chloride 110 mmol/L (96-108)
[2020-01-01] MEDS: METOPROLOL TARTRATE 25 MG TABLET PO SCH ×2 (08:55→20:49)
[2020-01-01] MEDS: PANTOPRAZOLE 40 MG TABLET PO SCH ×2 (08:55→17:41)
[2020-01-01] MEDS: amLODIPine 5 MG TABLET PO SCH (08:56)
[2020-01-01] MEDS: MULTIVIT,THER IRON,CA,FA & MIN 1 TABLET PO SCH (08:56)
[2020-01-01] MEDS: DOCUSATE SODIUM 100 MG CAPSULE PO SCH ×2 (08:56→20:49)
[2020-01-01 09:12] LABS: Anisocytosis 1+ (NONE SEEN); Lymphocytes % 6 % (15-49); Macrocytosis 2+ (NONE SEEN); Monocytes % (Manual) 3 % (1-12); Platelet Estimate NORMAL (NORMAL); RBC Morphology ABNORM (NORMAL); Segmented Neutrophils % 91 % (38-78)
[2020-01-01] MEDS: NEUTRA PHOS 1 PACKET PO SCH ×2 (10:01→20:49)
[2020-01-01] MEDS: HEPARIN 5,000 UNIT/ML VIAL SQ SCH ×2 (10:03→20:48)
[2020-01-01] MEDS ORDERED: amLODIPine 5 MG TABLET PO ONE (13:42)
[2020-01-01] MEDS ORDERED: LEVOFLOXACIN 500 MG TABLET PO SCH (14:00)
--- NOTE | 2020-01-01 17:36 | Internal Med Progress Note ---
SUBJECTIVE Subjective Patient information: Note initiated : 01/01/20 at 5:32 pm Service Date, if different from initiated Date: [] Patient: Belle Celaya a 89 y/o F admitted on 12/28/19 for weakness. Chief Complaint: [] Ms. Celaya is a 89 year old F with a history of hypertension who lives with her son and daughter. She presents to the ER along with her son Pernell due to gradually progressive weakness limiting her activities of daily living. She sustained a fall roughly 6 days ago spraining her ankle. Since then she has gone downhill with limited mobility, lack of appetite, worsening effort tolerance, malaise and multiple episodes of incontinence. She has been followed by nursing caregiver taking care of coccyx ulcer. With increasing concerns family brought to the ER for further evaluation. Initial work-up was consistent with basilar pneumonia on chest imaging, volume depletion/severe hypokalemia with potassium 2.6 patient received 60 mg of potassium in the ER. X-ray ankle unremarkable. subsequently hospitalist service was consulted. At the time of evaluation patient is alert and able to answer most questions. She however endorses to above symptoms increasing fatigue weakness. She endorses to fall few days ago. She complains of persistent right shoulder pain. Denies fever, chest pain, productive cough. 12/28-patient complains of right ankle and shoulder pain, on antibiotic coverage for multifocal pneumonia. Clinically improving now on room air. Right shoulder imaging to rule out fracture. Continue therapies/nutrition/antibiotic coverage. White count 4.6, hemoglobin 8.4, creatinine 1.3 12/29-patient currently on room air however interval chest imaging worsening left-sided effusion/infiltrate. On antibiotic coverage. Subluxation left shoulder, case discussed with orthopedics. Consult ordered. May benefit from steroid shot. Continue antibiotic coverage. Continue PT OT. 12/30 Patient does not have any new complaints. Denies fever, chills, nausea or vomiting. Blood pressure is not well controlled. Patient refused IV access. Oral blood pressure medication was adjusted. Oxygen saturation is fine on room air. She will be possibly discharged home tomorrow (patient refused SNF. She has a home health services already. 12/31 Patient is fine and does not have any complaints. Denies dizziness, fever, chills, or nausea. Palpation blood pressure is not well controlled. Increased amlodipine to 7.5 mg of from 5 mg. Creatinine increased to 1.7 today. Patient does not have IV access and patient refused IV line placement. Advised the patient to drink more fluid. Patient daughter wants to discharge her to a rehab. ROS: Positive for body pain. All other systems were reviewed and negative. Constitutional Vitals: Vital Signs Temp Pulse Resp BP Pulse Ox 99.2 F H 81 18 163/73 96 01/01/20 16:00 01/01/20 16:00 01/01/20 16:00 01/01/20 16:00 01/01/20 16:00 Period Temp Pulse Resp BP Sys/Sparks Pulse Ox Last 24 Hr 97.4 F-99.2 F 64-81 16- 139-169/64-74 96-97 Intake and Output 01/01/20 01/01/20 01/01/20 05:59 13:59 21:59 Intake Total 0 Balance 0 Intake & Output: Intake & Output 01/01/20 01/01/20 01/01/20 05:59 13:59 21:59 Intake Total 0 Balance 0 Intake: Oral 0 Additional findings Additional findings: General -no acute distress Eyes - PERRLA, EOM intact ENT no rhinorrhea, no noticeable or palpable swelling, no redness or rash around throat or on face Neck supple, no JVD, no thyromegaly Respiratory: Lungs - diminshed BS, no use of accessory muscles Cardiovascular - RRR no m/r/g, GI - Normal bowel sounds, no distended, soft. Extremeties - No edema, cyanosis or clubbing Hemo/lymphatic/immune no lymphadenopathy Neurological Alert and oriented x 3, no focal neurological deficits. Psychiatry flat affect OBJ DATA Labs CBC & Chem 7: 01/01/20 06:00 01/01/20 06:00 Labs: Abnormal Lab Results 01/01/20 01/01/20 12/31/19 06:00 06:00 05:40 WBC 4.3 L RBC 2.61 L Hgb 8.5 L Hct 27.4 L MCV 105.0 H RDW 16.5 H MPV 10.9 H Seg Neutrophils % 91 H Lymphocytes % 6 L RBC Morphology Abnorm A Poikilocytosis Anisocytosis 1+ A Macrocytosis 2+ A Tear Drop Cells RBC Fragments Chloride 110 H 110 H Carbon Dioxide 19 L 18 L BUN 33 H 25 H Creatinine 1.7 H 1.6 H Glucose 171 H 169 H Calcium 8.2 L 8.2 L Phosphorus 5.5 H 5.2 H Total Protein 5.4 L 5.3 L Albumin 2.3 L 2.1 L Albumin/Globulin Ratio 0.7 L 0.7 L 12/31/19 12/30/19 12/30/19 05:40 05:35 05:35 WBC 1.9 L RBC 2.68 L 2.51 L Hgb 8.8 L 8.2 L Hct 28.1 L 26.1 L MCV 104.9 H 104.0 H RDW 16.2 H 16.6 H MPV 10.9 H 10.9 H Seg Neutrophils % 87 H 82 H Lymphocytes % 12 L 12 L RBC Morphology Abnorm A Abnorm A Poikilocytosis Few A Anisocytosis 1+ A 2+ A Macrocytosis 1+ A 1+ A Tear Drop Cells Few A RBC Fragments Rare A Chloride 110 H Carbon Dioxide 20 L BUN Creatinine 1.4 H Glucose Calcium 8.2 L Phosphorus Total Protein 5.1 L Albumin 2.2 L Albumin/Globulin Ratio 0.8 L Meds: Medications Acetaminophen (Tylenol) 650 mg PO Q4-6HP PRN; Protocol PRN Reason: Per Pain Protocol/Fever > 101 Last Admin: 12/30/19 23:05 Dose: 650 mg Documented by: Amlodipine Besylate (Norvasc) 7.5 mg PO DAILY [facility] Bisacodyl (Dulcolax) 10 mg [place] Q2-3DAYS PRN PRN Reason: Constipation Docusate Sodium (Colace) 100 mg PO BID [facility] Last Admin: 01/01/20 08:56 Dose: 100 mg Documented by: Heparin Sodium (Porcine) (Heparin) 5,000 unit SQ Q12 [facility] Last Admin: 01/01/20 10:03 Dose: 5,000 unit Documented by: Hydralazine HCl (Apresoline) 10 mg IV Q4-6HP PRN PRN Reason: Hypertension Hydralazine HCl (Apresoline) 10 mg PO QIDP PRN PRN Reason: Hypertension Last Admin: 12/30/19 23:06 Dose: 10 mg Documented by: Acetaminophen (Ofirmev) 650 mg in 65 mls @ 130 mls/hr IV Q6HP PRN; Protocol PRN Reason: Per Pain Protocol/Fever > 101 Last Infusion: 12/29/19 12:55 Dose: Infused Documented by: Potassium Chloride 40 meq/ (Dextrose) 520 mls @ 130 mls/hr IV UD PRN PRN Reason: K+ = or < 3.5 Magnesium Sulfate (Magnesium Sulfate) 2 gm in 50 mls @ 50 mls/hr IV UD PRN PRN Reason: MG = or < 1.7 Last Infusion: 12/28/19 12:10 Dose: Infused Documented by: Iron Carb/Multivit/[place]/Folic Acid (Multivitamin W/Minerals) 1 tab PO DAILY [facility] Last Admin: 01/01/20 08:56 Dose: 1 tab Documented by: Levofloxacin (Levaquin) 500 mg PO Q48H [facility]; Protocol Last Admin: 01/01/20 14:17 Dose: 500 mg Documented by: Melatonin (Melatonin 3mg Tablet) 3 mg PO HSP PRN PRN Reason: Insomnia Last Admin: 12/30/19 21:32 Dose: 3 mg Documented by: Metoprolol Tartrate (Lopressor) 5 mg IV Q5M PRN PRN Reason: Heart Rate > 140 bpm Metoprolol Tartrate (Lopressor) 25 mg PO BID [facility] Last Admin: 01/01/20 08:55 Dose: 25 mg Documented by: Ondansetron HCl (Zofran Odt) 4 mg SL Q4-6HP PRN; Protocol PRN Reason: Nausea And Vomiting Ondansetron HCl (Zofran) 4 mg IV Q4-6HP PRN; Protocol PRN Reason: Nausea And Vomiting Last Admin: 12/29/19 12:22 Dose: 4 mg Documented by: Pantoprazole Sodium (Protonix) 40 mg PO BIDAC [facility] Last Admin: 01/01/20 08:55 Dose: 40 mg Documented by: Polyethylene Glycol (Miralax) 17 gm PO DAILYP PRN PRN Reason: Constipation Potassium Chloride (Klor-Con) 40 meq PO DAILYP PRN PRN Reason: K+ < 3.5 Last Admin: 12/28/19 10:15 Dose: 40 meq Documented by: Potassium/Phosphorus/Sodium (Neutra Phos) 2 packet PO BID [facility] Last Admin: 01/01/20 10:01 Dose: 2 packet Documented by: Senna/Docusate Sodium (Senna Plus Tablet) 1 tab PO HS [facility] Last Admin: 12/31/19 21:53 Dose: 1 tab Documented by: Sodium Chloride (Saline Flush) 10 ml IV Q8 [facility] Last Admin: 01/01/20 14:13 Dose: Not Given Documented by: Sucralfate (Carafate) 1 gm PO HS [facility] Last Admin: 12/31/19 21:53 Dose: 1 gm Documented by: A/P Narrative A/P Narrative: 1. Multifocal bibasilar pneumonia. Ongoing antibiotic coverage. COVID-19 negative. Clinically improving, on room air however radiology deterioration noted 2. Right shoulder pain -subluxation noted on imaging. Orthopedic consulted 3. Hypokalemia resolved with replacement 4. Low magnesium and phosphorus resolved with replacement 5. Severe weakness/high risk fall-continue aggressive PT OT eval and treatments/gait and safety training 6. Hypertension continue metoprolol and added amlodipine 7. CKD, creatinine 1.1 on 07/17/2017. Creatinine has been around 1.7 over the past 2 years. 7. GERD continue PPI 8. Prophylaxis heparin Plan Continue antibiotic coverage Orthopedic consult RT assisted deep breathing exercise/CoughAssist Therapy/nutrition support Discharge planning per case management Time Spent With Patient Time: Total time spent is greater than 50% in coordination of care (as documented) at patient's floor/unit and/or counseling patient: QUALITY VTE Deep Vein Thrombosis/Pulmonary Embolism Present on Admission: No
[2020-01-01] MEDS: SUCRALFATE 1 GM TABLET PO SCH (20:49)
[2020-01-01] MEDS: SENNOSIDES/DOCUSATE SODIUM 1 TAB TABLET PO SCH (20:49)
[2020-01-01] MEDS: MELATONIN 3 MG TABLET PO PRN (22:47)
[2020-01-02] MEDS: 0.9 % SODIUM CHLORIDE 10 ML SYRINGE IV SCH ×2 (04:40→13:08)
[2020-01-02 06:32] LABS: Hematocrit 26.9 % (34.1-44.9); Hemoglobin 8.5 g/dL (11.2-15.7); Mean Cell Volume 105.1 fL (80.0-100.0); Mean Corpuscular HGB Conc 31.6 g/dL (31.0-36.0); Mean Platelet Volume 10.7 fL (7.4-10.4); Platelet Count 157 K/mcL (140-440); RBC 2.56 M/mcL (3.59-5.38); Red Cell Distribution Width 16.2 % (11.5-14.5); WBC 3.8 K/mcL (4.50-11.00)
[2020-01-02 07:10] LABS: ALT/SGPT 12 U/l (0-40); AST/SGOT 26 U/l (0-37); Albumin 2.4 gm/dL (3.2-5.2); Albumin/Globulin Ratio 0.8 (1.0-2.3); Alkaline Phosphatase 52 U/L (39-117); Bilirubin,Direct < 0.2 mg/dL (0.0-0.3); Bilirubin,Total 0.2 mg/dL (0.0-1.0); Blood Urea Nitrogen 35 mg/dl (8-23); Calcium 7.7 mg/dl (8.6-10.4); Carbon Dioxide 17 mmol/L (22-30); Chloride 107 mmol/L (96-108); Globulin 2.9 gm/dL (2.2-3.7); Glomerular Filtration Rate 29; Glucose 158 mg/dL (70-105); Lactate Dehydrogenase 168 U/L (94-250); Phosphorous 5.2 mg/dL (2.7-4.5); Triglycerides 124 mg/dl (<150)
[2020-01-02] MEDS: PANTOPRAZOLE 40 MG TABLET PO SCH (08:01)
[2020-01-02 08:30] LABS: Lymphocytes % 8 % (15-49); Monocytes % (Manual) 4 % (1-12); Platelet Estimate NORMAL (NORMAL); RBC Morphology NORMAL (NORMAL); Segmented Neutrophils % 88 % (38-78)
[2020-01-02 08:38] LABS: Anisocytosis 1+ (NONE SEEN); Macrocytosis 1+ (NONE SEEN)
[2020-01-02] MEDS ORDERED: amLODIPine 5 MG TABLET PO SCH (09:00)
[2020-01-02] MEDS: METOPROLOL TARTRATE 25 MG TABLET PO SCH (10:21)
[2020-01-02] MEDS: MULTIVIT,THER IRON,CA,FA & MIN 1 TABLET PO SCH (10:21)
[2020-01-02] MEDS: HEPARIN 5,000 UNIT/ML VIAL SQ SCH (10:24)
[2020-01-02] MEDS: hydrALAZINE 10 MG TABLET PO PRN (10:24)
[2020-01-02] MEDS: DOCUSATE SODIUM 100 MG CAPSULE PO SCH (10:25)
[2020-01-02] MEDS: NEUTRA PHOS 1 PACKET PO SCH (10:28)
--- NOTE | 2020-01-02 11:27 | XRay Report ---
CLINICAL INFORMATION: follow up PNA vs. atelectasis COMPARISON: 12/30/2019 FINDINGS: Marked cardiomegaly is unchanged. Mediastinum and pulmonary vessels are normal. Large left pleural effusion resulting in compressive atelectasis in the lingula and left lower lobe appreciated. Left upper lobe infiltrate, seen on previous exam, has resolved. A small right pleural effusion with moderate right basilar infiltrate or atelectasis. IMPRESSION: Resolution in left upper lobe infiltrate. Large left pleural effusion resulting in compressive atelectasis of the lingula and left lower lobe. Moderate right basilar infiltrate small effusion worsening Interpreted and Authenticated by: Matthew Hazel 01/02/20
--- NOTE | 2020-01-02 11:54 | Discharge Summary ---
Discharge Provider Provider Patient information: Note initiated : 01/02/20 at 11:49 am Service Date, if different from initiated Date: [] Patient: Belle Celaya 89 y/o F admitted on 12/28/19 for weakness. Chief Complaint: [] Date of admission: 12/28/19 00:12 Discharge date: 01/02/20 Primary care physician: SHIRA Larose Consults: 12/27/19 Consult to Physician [CONS] Stat Comment: Consulting Provider: Fadi Haji Reason For Exam: Physician to Consult 12/30/19 09:47 Consult to Physician [CONS] Routine Comment: Consulting Provider: John Higgins Reason For Exam: Physician to Consult 01/01/20 15:34 Consult to Physician [CONS] Routine Comment: Consulting Provider: Donald Fung Reason For Exam: Physician to Consult Discharge Meds Discharge Medications Home Medications duo derm #20 each 10/26/19 [Rx Confirmed 12/28/19 Last Taken Unknown] pantoprazole 40 mg tablet,delayed release 40 mg PO BIDAC #90 tab 10/26/19 [Rx Confirmed 12/28/19 Last Taken 12/27/19 08:00] sucralfate 1 g PO HS 12/30/19 [History Confirmed 12/30/19 Last Taken Unknown] amlodipine 7.5 mg PO DAILY #45 tab 01/02/20 [Rx Last Taken Unknown] docusate sodium 100 mg PO BID #30 cap 01/02/20 [Rx Last Taken Unknown] levofloxacin 500 mg PO Q48H #3 tab 01/02/20 [Rx Last Taken Unknown] metoprolol tartrate 25 mg PO BID #60 tab 01/02/20 [Rx Last Taken Unknown] COURSE Hospital Course Hospital course: 1. Multifocal bibasilar pneumonia. Ongoing antibiotic coverage. COVID-19 negative. Clinically improving. Will discharge her on po levaquin. 2. Right shoulder pain -subluxation noted on imaging. Orthopedic consulted 3. Hypokalemia resolved with replacement 4. Low magnesium - resolved with replacement 5. Severe weakness/high risk fall-continue aggressive PT OT eval and treatments/gait and safety training 6. Hypertension continue metoprolol and added amlodipine 7. CKD, creatinine 1.1 on 07/17/2017. Creatinine has been around 1.7 over the past 2 years. f/u with nephrology 7. GERD continue PPI 8. Hyperphosphatemia - 5.2 today. discussed with nephrology Dr. Gatica who felt no treatment now. f/u 9. Pleural effusion, left. CXR showed - Resolution in left upper lobe infiltrate. Large left pleural effusion resulting in compressive atelectasis of the lingula and left lower lobe. Discussed with Dr. Chanel who would not like to have thoracentesis and would like to f/u with pcp. 10 Decubitus ulcer. f/u with wound care center. Ms. Celaya is a 89 year old F with a history of hypertension who lives with her son and daughter. She presents to the ER along with her son Pernell due to gradually progressive weakness limiting her activities of daily living. She sustained a fall roughly 6 days ago spraining her ankle. Since then she has gone downhill with limited mobility, lack of appetite, worsening effort tolerance, malaise and multiple episodes of incontinence. She has been followed by nursing caregiver taking care of coccyx ulcer. With increasing concerns family brought to the ER for further evaluation. Initial work-up was consistent with basilar pneumonia on chest imaging, volume depletion/severe hypokalemia with potassium 2.6 patient received 60 mg of potassium in the ER. X-ray ankle unremarkable. subsequently hospitalist service was consulted. At the time of evaluation patient is alert and able to answer most questions. She however endorses to above symptoms increasing fatigue weakness. She endorses to fall few days ago. She complains of persistent right shoulder pain. Denies fever, chest pain, productive cough. 12/28-patient complains of right ankle and shoulder pain, on antibiotic coverage for multifocal pneumonia. Clinically improving now on room air. Right shoulder imaging to rule out fracture. Continue therapies/nutrition/antibiotic coverage. White count 4.6, hemoglobin 8.4, creatinine 1.3 12/29-patient currently on room air however interval chest imaging worsening lef t-sided effusion/infiltrate. On antibiotic coverage. Subluxation left shoulder, case discussed with orthopedics. Consult ordered. May benefit from steroid shot. Continue antibiotic coverage. Continue PT OT. 12/30 Patient does not have any new complaints. Denies fever, chills, nausea or vomiting. Blood pressure is not well controlled. Patient refused IV access. Oral blood pressure medication was adjusted. Oxygen saturation is fine on room air. She will be possibly discharged home tomorrow (patient refused SNF. She has a home health services already. 12/31 Patient is fine and does not have any complaints. Denies dizziness, fever, chills, or nausea. Palpation blood pressure is not well controlled. Increased amlodipine to 7.5 mg of from 5 mg. Creatinine increased to 1.7 today. Patient does not have IV access and patient refused IV line placement. Advised the patient to drink more fluid. Patient daughter wants to discharge her to a rehab. 01/01 Patient does not have any complaints today. Blood pressure is not controlled. Blood pressure medication is adjusted. Her pneumonia is clinically improved and will discharge her on oral antibiotics. Her phosphorus 5.2 today. Discussed with forging engineer Dr. Gatica who felt no treatment at this moment and repeat phosphorus level. Patient and the family refused usp/rehab. Daughter would like to take her home today. Home health with PT OT and RN and wound care were arranged. Patient needs to repeat a CBC, CMP, and a phosphorus in 3 days. Repeat chest x-ray in 3 to 5 days. Patient will be discharged home today to follow with PCP and forging engineer. Call PCP for medical issues. Discharge diagnosis: pneumonia, generalized weakness, CKD Time Spent with Patient Time attestation: Total time spent providing and/or coordinating discharge services: EXAM Constitutional Vitals: Temp Pulse Resp BP Pulse Ox 97.1 F 69 16 162/61 94 01/02/20 07:58 01/02/20 04:00 01/02/20 07:58 01/02/20 07:58 01/02/20 07:58 Additional findings Additional findings: General -no acute distress Eyes - PERRLA, EOM intact ENT no rhinorrhea, no noticeable or palpable swelling, no redness or rash around throat or on face Neck supple, no JVD, no thyromegaly Respiratory: Lungs - diminshed BS, no use of accessory muscles Cardiovascular - RRR no m/r/g, GI - Normal bowel sounds, no distended, soft. Extremeties - No edema, cyanosis or clubbing Hemo/lymphatic/immune no lymphadenopathy Neurological Alert and oriented x 3, no focal neurological deficits. Psychiatry flat affect Discharge Data Data Completed and Pending Labs on day of discharge: Labs from last 24 hours 01/02/20 01/02/20 05:10 05:10 WBC 3.8 L RBC 2.56 L Hgb 8.5 L Hct 26.9 L MCV 105.1 H MCH 33.2 MCHC 31.6 RDW 16.2 H Plt Count 157 MPV 10.7 H Total Counted 100 Seg Neutrophils % 88 H Band Neutrophils % Not Reportable Lymphocytes % 8 L Monocytes % (Manual) 4 Platelet Estimate Normal RBC Morphology Normal Anisocytosis 1+ A Macrocytosis 1+ A Sodium 139 Potassium 4.5 Chloride 107 Carbon Dioxide 17 L Anion Gap 15.0 BUN 35 H Creatinine 1.6 H GFR Calculation 29 Glucose 158 H Uric Acid 6.0 Calcium 7.7 L Phosphorus 5.2 H Magnesium 1.8 Total Bilirubin 0.2 Direct Bilirubin < 0.2 GGT 13 AST 26 ALT 12 Alkaline Phosphatase 52 Lactate Dehydrogenase 168 Total Protein 5.3 L Albumin 2.4 L Globulin 2.9 Albumin/Globulin Ratio 0.8 L Triglycerides 124 Discharge Plan Patient/Caregiver Discharge Instructions Activity: increase activity as tolerated Diet: Renal and Dysphagia Level 6 Soft & Bite-Sized Foods Prescriptions: New amlodipine 5 mg Tablet 7.5 mg PO DAILY Qty: 45 RF: 0 docusate sodium 100 mg Capsule 100 mg PO BID Qty: 30 RF: 0 levofloxacin 500 mg Tablet 500 mg PO Q48H Qty: 3 RF: 0 metoprolol tartrate 25 mg Tablet 25 mg PO BID Qty: 60 RF: 0 Continued pantoprazole 40 mg tablet,delayed release (DR/EC) 40 mg PO BIDAC Qty: 90 RF: 1 sucralfate 1 g PO HS RF: 0 Discontinued metoprolol tartrate 25 mg tablet 12.5 mg PO BID Qty: 90 RF: 0 No Action (DME) duo derm Qty: 20 RF: 5 Other Ambulatory Orders: Complete Blood Count (Routine) Timeframe: 3 Days Facility: [facility] - Location: Laboratory Ordered By: Keyanna Hilario Comprehensive Metabolic Panel (Routine) Timeframe: 3 Days Facility: [facility] - Location: Laboratory Ordered By: Keyanna Hilario Phosphorous (Routine) Timeframe: 3 Days Facility: [facility] - Location: Laboratory Ordered By: Keyanna Hilario XR chest 1V (Routine) Timeframe: 5 Days Facility: [facility] - Location: Radiology Ordered By: Keyanna Hilario Wound Care Instructions (CONT) Location: None Selected Ordered By: Keyanna Hilario Follow Up Plan Follow up with: Bety Guzman ARNP [Primary Care Provider] - (in 3 days) Unknown [Outside] (pcp in 3 days, nephrology Dr. Gatica within one week, wound care within one week. ) Curtis Gatica MD [Physician] - (within one week. ) Patient Disposition: Home Health Service Prognosis: Undetermined Discharge Orders: Discharge Order (Routine); Ordered 01/02/20 Ordered By: Keyanna Hilario QUALITY VTE Deep Vein Thrombosis/Pulmonary Embolism Present on Admission: No
[2020-01-02] MEDS ORDERED: PNEUMOCOCCAL 23-VAL P-SAC VAC 0.5 ML SYRINGE IM ONE (14:30)
== END 2020-01-02 14:26 | disposition home health service (06) | DRG 193 ==
LOC: ED 19:03 → MEDSUR 19:03 → OBSVTOIN 12-28 00:12 → MEDSUR 12-28 00:20
PROVIDERS: ADMIT Internal Medicine; ATTEND Internal Medicine